=== PATIENT | male | born 1950 | race Caucasian/White ===

== ENCOUNTER 2016-11-16 01:51 | Inpatient (IN) | payer MEDICARE, MEDICAID ==
[~2016-11-16] VITALS: Ht 193 cm; Wt 130.1 kg
[~2016-11-16 01:51] MED LIST: DIVA500T52 PO; DOCU250C91 PO; LISI-661 PO; OLAN5Z PO; OMEP20 PO
[2016-11-16 03:06] LABS: BASOPHILS % (AUTO) 0.6 % (0.0-2.0); HEMATOCRIT 35.7 % (41-53); HEMOGLOBIN 11.7 g/dL (13.5-17.5); LYMPHOCYTES % (AUTO) 11.8 % (22.0-44.0); MEAN CORPUSCULAR HEMOGLOBIN 28.7 pg (26.0-34.0); MEAN CORPUSCULAR HGB CONC 32.9 G/dL (31.0-37.0); MEAN CORPUSCULAR VOLUME 87 fL (80-100); MONOCYTES # (AUTO) 0.5 K/uL (0.1-1.0); MONOCYTES % (AUTO) 5.5 % (2.0-9.0); NEUTROPHILS # (AUTO) 6.8 K/uL (1.8-7.7); NEUTROPHILS % (AUTO) 80.1 % (40.0-70.0); PLATELET COUNT (AUTO) 189 K/uL (150-450); RED BLOOD CELL COUNT(AUTO) 4.09 MIL/uL (4.50-5.90); RED CELL DISTRIBUTION WIDTH 14.5 % (11.5-14.5); WHITE BLOOD COUNT (AUTO) 8.5 K/uL (4.5-11.0)
[2016-11-16 03:23] LABS: ANION GAP 7 mmol/L (8-16); CALCIUM, TOTAL 8.9 mg/dL (8.8-10.5); CARBON DIOXIDE 28 mmol/L (22-29); CHLORIDE 103 mmol/L (98-107); CREATININE 1.26 mg/dL (0.60-1.30); GLOMERULAR FILTR. RATE CALC 57 mL/min (>60); POTASSIUM 4.2 mmol/L (3.5-5.1); SODIUM SERUM 138 mmol/L (136-145); UREA NITROGEN, BLOOD 27 mg/dL (7-18)
[2016-11-16 03:28] LABS: ALANINE AMINOTRANSFERASE 21 U/L (12-78); ALBUMIN 3.3 g/dL (3.4-5.0); ASPARTATE AMINOTRANSFERASE 27 U/L (15-37); BILIRUBIN,TOTAL 0.6 mg/dL (0.1-1.0); TOTAL PROTEIN, SERUM 7.1 g/dL (6.4-8.2)
[2016-11-16 04:05] LABS: VALPROIC ACID 3 mcg/mL (50-100)
[2016-11-16] MEDS ORDERED: HALOPERIDOL 5 MG TABLET PO PRN (04:30)
[2016-11-16] MEDS ORDERED: ZOLPIDEM TARTRATE 10 MG TABLET PO PRN (04:30)
[2016-11-16 06:00] VITALS: BP 121/62
[2016-11-16] MEDS: LORazepam 2 MG TABLET PO PRN (06:23)
[2016-11-16] MEDS ORDERED: -PHARMACY VACCINE NOTE- MISC ONE ×2 (06:30)
[2016-11-16 08:24] VITALS: BP 123/63
[2016-11-16] MEDS ORDERED: BACITRACIN 28.4 GM OINTMENT TP PRN (09:00)
[2016-11-16] MEDS ORDERED: IBUPROFEN 600 MG TABLET PO PRN (09:00)
[2016-11-16] MEDS ORDERED: ACETAMINOPHEN 325 MG TABLET PO PRN (09:00)
[2016-11-16] MEDS ORDERED: LOPERAMIDE HCL 2 MG CAPSULE PO PRN (09:00)
[2016-11-16] MEDS ORDERED: MAGNESIUM HYDROXIDE SUSPENSION 30 ML UDCUP PO PRN (09:00)
[2016-11-16] MEDS ORDERED: MAG HYDROX/AL HYDROX/SIMETH ES 30 ML SUSPENSION UDCUP PO PRN (09:00)
[2016-11-16] MEDS ORDERED: BENZOCAINE/MENTHOL LOZENGE MM PRN (09:00)
[2016-11-16] MEDS ORDERED: ONDANSETRON HCL 4 MG TABLET PO PRN (09:00)
[2016-11-16] MEDS ORDERED: ALBUTEROL SULFATE HFA 90 MCG/PUFF 8 GM INHALER IH PRN (09:00)
[2016-11-16] MEDS ORDERED: CloNIDine HCL 0.1 MG TABLET PO PRN (09:00)
[2016-11-16] MEDS ORDERED: PETROLATUM,WHITE 71 GM JELLY TP PRN (09:00)
[2016-11-16] MEDS: OMEPRAZOLE 20 MG CAPSULE PO SCH (09:14)
[2016-11-16] MEDS: LISINOPRIL 10 MG TABLET PO SCH (09:14)
[2016-11-16] MEDS: DOCUSATE SODIUM 250 MG CAPSULE PO SCH ×2 (09:14→16:04)
[2016-11-16 16:01] VITALS: BP 116/71
[2016-11-16] MEDS: DIVALPROEX SODIUM 500 MG ER TABLET PO SCH (20:22)
[2016-11-16] MEDS: OLANZapine 5 MG RAPDIS TABLET PO SCH (20:22)
[2016-11-17 06:15] VITALS: BP 117/60
[2016-11-17 08:30] VITALS: BP 119/70
[2016-11-17] MEDS: OMEPRAZOLE 20 MG CAPSULE PO SCH (09:07)
[2016-11-17] MEDS: LISINOPRIL 10 MG TABLET PO SCH (09:07)
[2016-11-17] MEDS: DOCUSATE SODIUM 250 MG CAPSULE PO SCH ×2 (09:07→16:02)
[2016-11-17] MEDS: TERBINAFINE HCL 1% 30 GM CREAM TP SCH (09:08)
[2016-11-17 16:01] VITALS: BP 144/67
[2016-11-17 16:04] VITALS: BP 110/63
[2016-11-17] MEDS: OLANZapine 5 MG RAPDIS TABLET PO SCH (20:13)
[2016-11-17] MEDS: DIVALPROEX SODIUM 500 MG ER TABLET PO SCH (20:13)
[2016-11-18 05:42] VITALS: BP 137/74
[2016-11-18 08:24] VITALS: BP 133/72
[2016-11-18] MEDS: DOCUSATE SODIUM 250 MG CAPSULE PO SCH ×2 (09:27→16:49)
[2016-11-18] MEDS: TERBINAFINE HCL 1% 30 GM CREAM TP SCH (09:27)
[2016-11-18] MEDS: LISINOPRIL 10 MG TABLET PO SCH (09:27)
[2016-11-18] MEDS: OMEPRAZOLE 20 MG CAPSULE PO SCH (09:27)
[2016-11-18 16:15] VITALS: BP 109/60
[2016-11-18] MEDS: LORazepam 2 MG TABLET PO PRN (17:30)
[2016-11-18] MEDS: OLANZapine 5 MG RAPDIS TABLET PO SCH (20:52)
[2016-11-18] MEDS: DIVALPROEX SODIUM 500 MG ER TABLET PO SCH (20:52)
[2016-11-19 06:20] VITALS: BP 133/62
[2016-11-19 08:13] VITALS: BP 132/65
[2016-11-19] MEDS: OMEPRAZOLE 20 MG CAPSULE PO SCH (09:08)
[2016-11-19] MEDS: LISINOPRIL 10 MG TABLET PO SCH (09:08)
[2016-11-19] MEDS: TERBINAFINE HCL 1% 30 GM CREAM TP SCH (09:08)
[2016-11-19] MEDS: DOCUSATE SODIUM 250 MG CAPSULE PO SCH ×2 (09:08→16:27)
[2016-11-19] MEDS: TAMSULOSIN HCL 0.4 MG CAPSULE PO SCH (09:24)
[2016-11-19 16:00] VITALS: BP 140/82
[2016-11-19] MEDS: DIVALPROEX SODIUM 500 MG ER TABLET PO SCH (20:07)
[2016-11-19] MEDS: OLANZapine 5 MG RAPDIS TABLET PO SCH (20:09)
[2016-11-20 00:13] VITALS: BP 105/60
[2016-11-20 08:01] VITALS: BP 154/72
[2016-11-20] MEDS: LISINOPRIL 10 MG TABLET PO SCH (09:18)
[2016-11-20] MEDS: TAMSULOSIN HCL 0.4 MG CAPSULE PO SCH (09:18)
[2016-11-20] MEDS: DOCUSATE SODIUM 250 MG CAPSULE PO SCH ×2 (09:18→16:01)
[2016-11-20] MEDS: TERBINAFINE HCL 1% 30 GM CREAM TP SCH (09:18)
[2016-11-20] MEDS: OMEPRAZOLE 20 MG CAPSULE PO SCH (09:18)
[2016-11-20 10:49] VITALS: BP 126/60
[2016-11-20 16:01] VITALS: BP 112/65
[2016-11-20] MEDS: LORazepam 2 MG TABLET PO PRN (16:01)
[2016-11-20] MEDS: OLANZapine 5 MG RAPDIS TABLET PO SCH (20:01)
[2016-11-20] MEDS: DIVALPROEX SODIUM 500 MG ER TABLET PO SCH (20:01)
[2016-11-21 00:31] VITALS: BP 110/61
[2016-11-21 08:41] VITALS: BP 127/60
[2016-11-21] MEDS: TAMSULOSIN HCL 0.4 MG CAPSULE PO SCH (08:58)
[2016-11-21] MEDS: OMEPRAZOLE 20 MG CAPSULE PO SCH (08:58)
[2016-11-21] MEDS: LISINOPRIL 10 MG TABLET PO SCH (08:58)
[2016-11-21] MEDS: TERBINAFINE HCL 1% 30 GM CREAM TP SCH (08:59)
[2016-11-21] MEDS: DOCUSATE SODIUM 250 MG CAPSULE PO SCH ×2 (08:59→16:06)
[2016-11-21 16:01] VITALS: BP 109/64
[2016-11-21] MEDS: LORazepam 2 MG TABLET PO PRN (16:06)
[2016-11-21] MEDS: OLANZapine 5 MG RAPDIS TABLET PO SCH (20:05)
[2016-11-21] MEDS: DIVALPROEX SODIUM 500 MG ER TABLET PO SCH (20:05)
[2016-11-22] MEDS: OMEPRAZOLE 20 MG CAPSULE PO SCH (08:27)
[2016-11-22] MEDS: DOCUSATE SODIUM 250 MG CAPSULE PO SCH (08:27)
[2016-11-22] MEDS: LISINOPRIL 10 MG TABLET PO SCH (08:27)
[2016-11-22] MEDS: TAMSULOSIN HCL 0.4 MG CAPSULE PO SCH (08:27)
[2016-11-22] MEDS: TERBINAFINE HCL 1% 30 GM CREAM TP SCH (08:27)
[2016-11-22 08:51] VITALS: BP 134/60
[2016-11-22] MEDS ORDERED: TAMS0.4C32 PO (10:34)
== END 2016-11-22 13:45 | disposition home or self-care (01) | DRG 885 ==
LOC: EMS 01:52 → B2X 04:29 → B2S 11:10
PROVIDERS: ADMIT Psychiatry & Neurology Psychiatry; ATTEND Psychiatry & Neurology Psychiatry
DX: F20.0 Paranoid schizophrenia (principal); R45.851 Suicidal ideations; I10 Essential (primary) hypertension; J44.9 Chronic obstructive pulmonary disease, unspecified; M19.90 Unspecified osteoarthritis, unspecified site; K59.00 Constipation, unspecified; E66.9 Obesity, unspecified; K21.9 Gastro-esophageal reflux disease without esophagitis; B35.3 Tinea pedis; G47.00 Insomnia, unspecified; F17.210 Nicotine dependence, cigarettes, uncomplicated; Z59.0 Homelessness; Z79.899 Other long term (current) drug therapy; Z68.34 Body mass index [BMI] 34.0-34.9, adult; Z71.6 Tobacco abuse counseling
CPT/HCPCS: 87081; 99285; G0480

== ENCOUNTER 2016-11-29 20:03 | Inpatient (IN) | payer MEDICARE, MEDICAID ==
[~2016-11-29] VITALS: Ht 190.5 cm; Wt 127.3 kg
[~2016-11-29 20:03] MED LIST changes: +TAMS0.4C32 PO
[2016-11-29] MEDS ORDERED: OLANZapine 5 MG RAPDIS TABLET PO PRN (20:45)
[2016-11-29] MEDS ORDERED: LORazepam 2 MG TABLET PO PRN (20:45)
[2016-11-29] MEDS ORDERED: ZOLPIDEM TARTRATE 10 MG TABLET PO PRN (20:45)
[2016-11-29 22:00] VITALS: BP 142/88
[2016-11-29] MEDS: DIVALPROEX SODIUM 500 MG ER TABLET PO SCH (22:20)
[2016-11-29] MEDS: OLANZapine 5 MG RAPDIS TABLET PO SCH (22:21)
[2016-11-30 00:42] VITALS: BP 146/67
[2016-11-30 08:03] LABS: BASOPHILS # (AUTO) 0.04 K/uL (0.00-0.20); BASOPHILS % (AUTO) 0.6 % (0.0-2.0); EOSINOPHILS # (AUTO) 0.12 K/uL (0.00-0.70); EOSINOPHILS % (AUTO) 1.98 % (1.0-6.0); HEMATOCRIT 33.4 % (41-53); HEMOGLOBIN 10.8 g/dL (13.5-17.5); LYMPHOCYTES # (AUTO) 2.6 K/uL (1.0-4.8); LYMPHOCYTES % (AUTO) 42.3 % (22.0-44.0); MEAN CORPUSCULAR HEMOGLOBIN 28.4 pg (26.0-34.0); MEAN CORPUSCULAR HGB CONC 32.3 G/dL (31.0-37.0); MEAN CORPUSCULAR VOLUME 88 fL (80-100); MONOCYTES # (AUTO) 0.6 K/uL (0.1-1.0); MONOCYTES % (AUTO) 9.8 % (2.0-9.0); NEUTROPHILS # (AUTO) 2.7 K/uL (1.8-7.7); NEUTROPHILS % (AUTO) 45.4 % (40.0-70.0); PLATELET COUNT (AUTO) 159 K/uL (150-450); RED CELL DISTRIBUTION WIDTH 14.5 % (11.5-14.5); WHITE BLOOD COUNT (AUTO) 6.1 K/uL (4.5-11.0)
[2016-11-30 08:40] LABS: HEMOGLOBIN A1C 5.4 % (4.5-6.2)
[2016-11-30 08:45] LABS: ALANINE AMINOTRANSFERASE 17 U/L (12-78); ALBUMIN 2.8 g/dL (3.4-5.0); ANION GAP 10 mmol/L (8-16); ASPARTATE AMINOTRANSFERASE 16 U/L (15-37); BILIRUBIN,TOTAL 0.2 mg/dL (0.1-1.0); CALCIUM, TOTAL 8.3 mg/dL (8.8-10.5); CARBON DIOXIDE 24 mmol/L (22-29); CHLORIDE 109 mmol/L (98-107); CHOL/HDL RATIO 3.5 (4.2-7.3); CREATININE 1.14 mg/dL (0.60-1.30); GLOMERULAR FILTR. RATE CALC > 60 mL/min (>60); POTASSIUM 4.1 mmol/L (3.5-5.1); SODIUM SERUM 143 mmol/L (136-145); THYROID STIMULATING HORMONE 1.94 uIU/mL (0.36-3.74); TOTAL PROTEIN, SERUM 6.2 g/dL (6.4-8.2); UREA NITROGEN, BLOOD 21 mg/dL (7-18)
[2016-11-30] MEDS ORDERED: ONDANSETRON HCL 4 MG TABLET PO PRN (09:00)
[2016-11-30] MEDS ORDERED: ALBUTEROL SULFATE HFA 90 MCG/PUFF 8 GM INHALER IH PRN (09:00)
[2016-11-30] MEDS ORDERED: ACETAMINOPHEN 325 MG TABLET PO PRN (09:00)
[2016-11-30] MEDS ORDERED: BENZOCAINE/MENTHOL LOZENGE MM PRN (09:00)
[2016-11-30] MEDS ORDERED: CloNIDine HCL 0.1 MG TABLET PO PRN (09:00)
[2016-11-30] MEDS ORDERED: LOPERAMIDE HCL 2 MG CAPSULE PO PRN (09:00)
[2016-11-30] MEDS ORDERED: MAGNESIUM HYDROXIDE SUSPENSION 30 ML UDCUP PO PRN (09:00)
[2016-11-30] MEDS ORDERED: BACITRACIN 28.4 GM OINTMENT TP PRN (09:00)
[2016-11-30] MEDS ORDERED: MAG HYDROX/AL HYDROX/SIMETH ES 30 ML SUSPENSION UDCUP PO PRN (09:00)
[2016-11-30] MEDS ORDERED: PETROLATUM,WHITE 71 GM JELLY TP PRN (09:00)
[2016-11-30] MEDS: TAMSULOSIN HCL 0.4 MG CAPSULE PO SCH (09:05)
[2016-11-30] MEDS: DOCUSATE SODIUM 250 MG CAPSULE PO SCH ×2 (09:06→17:00)
[2016-11-30] MEDS: LISINOPRIL 10 MG TABLET PO SCH (09:06)
[2016-11-30] MEDS: OMEPRAZOLE 20 MG CAPSULE PO SCH (09:06)
[2016-11-30 09:20] VITALS: BP 118/62
[2016-11-30] MEDS: IBUPROFEN 600 MG TABLET PO PRN (09:20)
[2016-11-30 09:56] VITALS: BP 123/56
[2016-11-30] MEDS ORDERED: GuaiFENesin/D-METHORPHAN [SUGAR-FREE] 200-20MG/10 ML SYRUP UDCUP PO PRN (10:15)
[2016-11-30] MEDS ORDERED: HydrOXYzine PAMOATE 50 MG CAPSULE PO PRN (10:15)
[2016-11-30 11:28] VITALS: BP 132/70
[2016-11-30] MEDS: THIAMINE HCL 100 MG TABLET PO SCH (17:00)
[2016-11-30 18:26] VITALS: BP 132/65
[2016-11-30] MEDS: DIVALPROEX SODIUM 500 MG ER TABLET PO SCH (20:10)
[2016-11-30] MEDS: OLANZapine 5 MG RAPDIS TABLET PO SCH (20:11)
[2016-12-01 04:02] VITALS: BP 138/93
[2016-12-01] MEDS: OMEPRAZOLE 20 MG CAPSULE PO SCH (08:33)
[2016-12-01] MEDS: TAMSULOSIN HCL 0.4 MG CAPSULE PO SCH (08:33)
[2016-12-01] MEDS: THIAMINE HCL 100 MG TABLET PO SCH ×2 (08:33→16:38)
[2016-12-01] MEDS: LISINOPRIL 10 MG TABLET PO SCH (08:33)
[2016-12-01] MEDS: DOCUSATE SODIUM 250 MG CAPSULE PO SCH ×2 (08:33→16:38)
[2016-12-01 08:41] VITALS: BP 158/85
[2016-12-01] MEDS: IBUPROFEN 600 MG TABLET PO PRN (08:42)
[2016-12-01] MEDS ORDERED: MULTIVITAMINS WITH MINERALS, THERAPEUTIC TABLET PO SCH (09:00)
[2016-12-01] MEDS ORDERED: NALTREXONE HCL 50 MG TABLET PO SCH (09:00)
[2016-12-01] MEDS ORDERED: FOLIC ACID 1 MG TABLET PO SCH (09:00)
[2016-12-01 12:51] VITALS: BP 137/71
[2016-12-01] MEDS ORDERED: OLANZAPINE PAMOATE IM ONE (13:00)
[2016-12-01 14:00] VITALS: BP 132/63
[2016-12-01] MEDS ORDERED: DIVA500T52 PO (14:32)
[2016-12-01] MEDS ORDERED: OLAN405V IM (14:32)
[2016-12-01] MEDS ORDERED: NALT50 PO (14:32)
[2016-12-01 16:00] VITALS: BP 136/73
[2016-12-01] MEDS: DIVALPROEX SODIUM 500 MG ER TABLET PO SCH (20:45)
[2016-12-01] MEDS ORDERED: OLANZapine 10 MG RAPDIS TABLET PO SCH (21:00)
[2016-12-02] MEDS ORDERED: THIA100 PO (05:06)
[2016-12-02] MEDS ORDERED: FOLI1 PO (05:06)
[2016-12-02] MEDS ORDERED: MULT-248 PO (05:06)
[2016-12-02 06:23] VITALS: BP 148/83
[2016-12-29] MEDS ORDERED: OLANZAPINE PAMOATE 405 MG/2.7 ML VIAL IM SCH (09:00)
== END 2016-12-02 08:10 | disposition home or self-care (01) | DRG 885 ==
LOC: B2S 20:44 → EDSTATUS 21:12 → UNDOADMIN 21:14 → B2S 21:14
PROVIDERS: ADMIT Psychiatry & Neurology Psychiatry; ATTEND Psychiatry & Neurology Psychiatry
PROC: GZ51ZZZ Individual Psychotherapy, Behavioral (ICD-10-PCS; principal; 2016-11-30)
DX: F25.9 Schizoaffective disorder, unspecified (principal); E66.9 Obesity, unspecified; J44.9 Chronic obstructive pulmonary disease, unspecified; I10 Essential (primary) hypertension; K21.9 Gastro-esophageal reflux disease without esophagitis; K59.00 Constipation, unspecified; M19.90 Unspecified osteoarthritis, unspecified site; N40.0 Benign prostatic hyperplasia without lower urinary tract symptoms; R10.13 Epigastric pain; Z79.899 Other long term (current) drug therapy; F17.200 Nicotine dependence, unspecified, uncomplicated; Z59.0 Homelessness; Z91.14 Patient's other noncompliance with medication regimen; Z68.35 Body mass index [BMI] 35.0-35.9, adult; D64.9 Anemia, unspecified
CPT/HCPCS: 83036; 84439; 84443; 87081; J2358

== ENCOUNTER 2017-01-05 18:05 | Inpatient (IN) | payer MEDICARE, MEDICAID ==
[~2017-01-05] VITALS: Ht 193 cm; Wt 120.9 kg
[~2017-01-05 18:05] MED LIST changes: +FOLI1 PO; +MULT-248 PO; +NALT50 PO; +OLAN405V IM; -OLAN5Z PO; +THIA100 PO
[2017-01-05] MEDS ORDERED: ZOLPIDEM TARTRATE 10 MG TABLET PO PRN (18:45)
[2017-01-05] MEDS ORDERED: LORazepam 2 MG TABLET PO PRN (18:45)
[2017-01-05] MEDS ORDERED: OLANZapine 5 MG RAPDIS TABLET PO PRN (18:45)
[2017-01-05 19:49] VITALS: BP 113/73
[2017-01-05] MEDS: DIVALPROEX SODIUM 500 MG DR TABLET PO SCH (20:52)
[2017-01-06 00:05] VITALS: BP 123/63
[2017-01-06 08:21] LABS: BASOPHILS # (AUTO) 0.04 K/uL (0.00-0.20); BASOPHILS % (AUTO) 0.5 % (0.0-2.0); EOSINOPHILS # (AUTO) 0.23 K/uL (0.00-0.70); HEMATOCRIT 33.7 % (41-53); LYMPHOCYTES # (AUTO) 2.4 K/uL (1.0-4.8); LYMPHOCYTES % (AUTO) 30.2 % (22.0-44.0); MEAN CORPUSCULAR HGB CONC 32.6 G/dL (31.0-37.0); MEAN CORPUSCULAR VOLUME 86 fL (80-100); MONOCYTES # (AUTO) 0.4 K/uL (0.1-1.0); MONOCYTES % (AUTO) 5.6 % (2.0-9.0); NEUTROPHILS # (AUTO) 4.8 K/uL (1.8-7.7); NEUTROPHILS % (AUTO) 60.8 % (40.0-70.0); PLATELET COUNT (AUTO) 260 K/uL (150-450); RED BLOOD CELL COUNT(AUTO) 3.92 MIL/uL (4.50-5.90); RED CELL DISTRIBUTION WIDTH 14.1 % (11.5-14.5); WHITE BLOOD COUNT (AUTO) 7.9 K/uL (4.5-11.0)
[2017-01-06 08:35] LABS: HEMOGLOBIN A1C 5.4 % (4.5-6.2)
[2017-01-06 08:45] VITALS: BP 124/69
[2017-01-06 08:45] LABS: ALBUMIN 2.8 g/dL (3.4-5.0); BILIRUBIN,TOTAL 0.1 mg/dL (0.1-1.0); CALCIUM, TOTAL 8.6 mg/dL (8.8-10.5); CHOL/HDL RATIO 4.1 (4.2-7.3); CREATININE 1.38 mg/dL (0.60-1.30); POTASSIUM 4.7 mmol/L (3.5-5.1); THYROID STIMULATING HORMONE 1.34 uIU/mL (0.36-3.74); TOTAL PROTEIN, SERUM 6.5 g/dL (6.4-8.2)
[2017-01-06] MEDS ORDERED: MAG HYDROX/AL HYDROX/SIMETH ES 30 ML SUSPENSION UDCUP PO PRN (09:00)
[2017-01-06] MEDS ORDERED: CloNIDine HCL 0.1 MG TABLET PO PRN (09:00)
[2017-01-06] MEDS ORDERED: IBUPROFEN 600 MG TABLET PO PRN (09:00)
[2017-01-06] MEDS ORDERED: ACETAMINOPHEN 325 MG TABLET PO PRN (09:00)
[2017-01-06] MEDS ORDERED: MAGNESIUM HYDROXIDE SUSPENSION 30 ML UDCUP PO PRN (09:00)
[2017-01-06] MEDS ORDERED: OLANZAPINE PAMOATE 405 MG/2.7 ML VIAL IM SCH (09:00)
[2017-01-06] MEDS ORDERED: LOPERAMIDE HCL 2 MG CAPSULE PO PRN (09:00)
[2017-01-06] MEDS ORDERED: ONDANSETRON HCL 4 MG TABLET PO PRN (09:00)
[2017-01-06] MEDS ORDERED: BENZOCAINE/MENTHOL LOZENGE MM PRN (09:00)
[2017-01-06] MEDS ORDERED: ALBUTEROL SULFATE HFA 90 MCG/PUFF 8 GM INHALER IH PRN (09:00)
[2017-01-06] MEDS ORDERED: PETROLATUM,WHITE 71 GM JELLY TP PRN (09:00)
[2017-01-06] MEDS ORDERED: BACITRACIN 28.4 GM OINTMENT TP PRN (09:00)
[2017-01-06] MEDS: NALTREXONE HCL 50 MG TABLET PO SCH (10:18)
[2017-01-06] MEDS: TAMSULOSIN HCL 0.4 MG CAPSULE PO SCH (10:22)
[2017-01-06] MEDS: DOCUSATE SODIUM 100 MG CAPSULE PO SCH (10:23)
[2017-01-06] MEDS: OMEPRAZOLE 20 MG CAPSULE PO SCH (10:23)
[2017-01-06] MEDS: LISINOPRIL 10 MG TABLET PO SCH (10:23)
[2017-01-06] MEDS ORDERED: HydrOXYzine PAMOATE 50 MG CAPSULE PO PRN (13:15)
[2017-01-06] MEDS ORDERED: GuaiFENesin/D-METHORPHAN [SUGAR-FREE] 200-20MG/10 ML SYRUP UDCUP PO PRN (13:15)
[2017-01-06 16:09] VITALS: BP 122/64
[2017-01-06] MEDS: THIAMINE HCL 100 MG TABLET PO SCH (17:30)
[2017-01-06] MEDS: DIVALPROEX SODIUM 500 MG DR TABLET PO SCH (21:10)
[2017-01-07 06:53] VITALS: BP 120/90
[2017-01-07 08:32] LABS: CALCIUM, TOTAL 8.2 mg/dL (8.8-10.5); CREATININE 1.3 mg/dL (0.60-1.30); POTASSIUM 5.1 mmol/L (3.5-5.1)
[2017-01-07] MEDS: TAMSULOSIN HCL 0.4 MG CAPSULE PO SCH (08:52)
[2017-01-07] MEDS: FOLIC ACID 1 MG TABLET PO SCH (08:52)
[2017-01-07] MEDS: NALTREXONE HCL 50 MG TABLET PO SCH (08:52)
[2017-01-07] MEDS: DOCUSATE SODIUM 100 MG CAPSULE PO SCH (08:52)
[2017-01-07] MEDS: OMEPRAZOLE 20 MG CAPSULE PO SCH (08:52)
[2017-01-07] MEDS: LISINOPRIL 10 MG TABLET PO SCH (08:52)
[2017-01-07] MEDS: MULTIVITAMINS WITH MINERALS, THERAPEUTIC TABLET PO SCH (08:52)
[2017-01-07] MEDS: THIAMINE HCL 100 MG TABLET PO SCH ×2 (08:52→17:27)
[2017-01-07 09:34] VITALS: BP 114/69
[2017-01-07 09:57] VITALS: BP 114/69
[2017-01-07 16:19] VITALS: BP 118/66
[2017-01-07] MEDS: DIVALPROEX SODIUM 500 MG DR TABLET PO SCH (20:35)
[2017-01-08 08:44] VITALS: BP 134/66
[2017-01-08] MEDS: DOCUSATE SODIUM 100 MG CAPSULE PO SCH (09:34)
[2017-01-08] MEDS: MULTIVITAMINS WITH MINERALS, THERAPEUTIC TABLET PO SCH (09:34)
[2017-01-08] MEDS: OMEPRAZOLE 20 MG CAPSULE PO SCH (09:34)
[2017-01-08] MEDS: TAMSULOSIN HCL 0.4 MG CAPSULE PO SCH (09:35)
[2017-01-08] MEDS: NALTREXONE HCL 50 MG TABLET PO SCH (09:35)
[2017-01-08] MEDS: THIAMINE HCL 100 MG TABLET PO SCH ×2 (09:42→16:28)
[2017-01-08] MEDS: FOLIC ACID 1 MG TABLET PO SCH (09:42)
[2017-01-08] MEDS: LISINOPRIL 10 MG TABLET PO SCH (09:42)
[2017-01-08 16:13] VITALS: BP 112/68
[2017-01-08] MEDS: DIVALPROEX SODIUM 500 MG DR TABLET PO SCH (20:49)
[2017-01-09 09:22] VITALS: BP 128/81
[2017-01-09] MEDS: MULTIVITAMINS WITH MINERALS, THERAPEUTIC TABLET PO SCH (09:26)
[2017-01-09] MEDS: FOLIC ACID 1 MG TABLET PO SCH (09:26)
[2017-01-09] MEDS: DOCUSATE SODIUM 100 MG CAPSULE PO SCH (09:26)
[2017-01-09] MEDS: OMEPRAZOLE 20 MG CAPSULE PO SCH (09:26)
[2017-01-09] MEDS: THIAMINE HCL 100 MG TABLET PO SCH ×2 (09:26→16:30)
[2017-01-09] MEDS: NALTREXONE HCL 50 MG TABLET PO SCH (09:26)
[2017-01-09] MEDS: LISINOPRIL 10 MG TABLET PO SCH (09:26)
[2017-01-09] MEDS: TAMSULOSIN HCL 0.4 MG CAPSULE PO SCH (09:27)
[2017-01-09 16:16] VITALS: BP 120/75
[2017-01-09] MEDS: DIVALPROEX SODIUM 500 MG DR TABLET PO SCH (20:18)
[2017-01-10 08:59] VITALS: BP 155/70
[2017-01-10] MEDS: TAMSULOSIN HCL 0.4 MG CAPSULE PO SCH (09:19)
[2017-01-10] MEDS: DOCUSATE SODIUM 100 MG CAPSULE PO SCH (09:19)
[2017-01-10] MEDS: OMEPRAZOLE 20 MG CAPSULE PO SCH (09:19)
[2017-01-10] MEDS: NALTREXONE HCL 50 MG TABLET PO SCH (09:19)
[2017-01-10] MEDS: MULTIVITAMINS WITH MINERALS, THERAPEUTIC TABLET PO SCH (09:19)
[2017-01-10] MEDS: THIAMINE HCL 100 MG TABLET PO SCH (09:19)
[2017-01-10] MEDS: LISINOPRIL 10 MG TABLET PO SCH (09:21)
[2017-01-10] MEDS: FOLIC ACID 1 MG TABLET PO SCH (09:21)
[2017-01-10] MEDS ORDERED: OLAN405V IM (13:13)
[2017-01-10] MEDS ORDERED: NALT50 PO (13:13)
[2017-01-10] MEDS ORDERED: DIVA500T2 PO (13:13)
[2017-02-02] MEDS ORDERED: OLANZAPINE PAMOATE 405 MG/2.7 ML VIAL IM SCH (09:00)
== END 2017-01-10 14:35 | disposition home or self-care (01) | DRG 885 ==
LOC: EDSTATUS 18:09 → B2X 18:37 → B2S 21:21
PROVIDERS: ADMIT Psychiatry & Neurology Psychiatry; ATTEND Psychiatry & Neurology Psychiatry
PROC: GZ51ZZZ Individual Psychotherapy, Behavioral (ICD-10-PCS; principal; 2017-01-05)
DX: F25.9 Schizoaffective disorder, unspecified (principal); R45.851 Suicidal ideations; F25.0 Schizoaffective disorder, bipolar type; R45.850 Homicidal ideations; D64.9 Anemia, unspecified; I10 Essential (primary) hypertension; K21.9 Gastro-esophageal reflux disease without esophagitis; N40.0 Benign prostatic hyperplasia without lower urinary tract symptoms; E66.9 Obesity, unspecified; J44.9 Chronic obstructive pulmonary disease, unspecified; M19.90 Unspecified osteoarthritis, unspecified site; K59.00 Constipation, unspecified; N28.9 Disorder of kidney and ureter, unspecified; Z71.6 Tobacco abuse counseling; Z59.0 Homelessness; Z91.19 Patient's noncompliance with other medical treatment and regimen; Z68.32 Body mass index [BMI] 32.0-32.9, adult
CPT/HCPCS: 83036; 84439; 84443; J2358

== ENCOUNTER 2017-01-24 16:18 | Inpatient (IN) | payer MEDICARE, MEDICAID ==
[~2017-01-24] VITALS: Ht 193 cm; Wt 128.4 kg
[~2017-01-24 16:18] MED LIST changes: +DIVA500T2 PO; -FOLI1 PO; -MULT-248 PO; -THIA100 PO
[2017-01-24] MEDS ORDERED: HALOPERIDOL 5 MG TABLET PO PRN (17:00)
[2017-01-24] MEDS ORDERED: ZOLPIDEM TARTRATE 10 MG TABLET PO PRN (17:00)
[2017-01-24 17:36] VITALS: BP 104/67
[2017-01-24] MEDS: OLANZapine 7.5 MG TABLET PO SCH (20:18)
[2017-01-24] MEDS: LORazepam 2 MG TABLET PO PRN (20:18)
[2017-01-25 06:40] VITALS: BP 137/62
[2017-01-25 08:09] VITALS: BP 139/70
[2017-01-25] MEDS ORDERED: BACITRACIN 28.4 GM OINTMENT TP PRN (08:30)
[2017-01-25] MEDS ORDERED: ACETAMINOPHEN 325 MG TABLET PO PRN (08:30)
[2017-01-25] MEDS ORDERED: IBUPROFEN 600 MG TABLET PO PRN (08:30)
[2017-01-25] MEDS ORDERED: MAGNESIUM HYDROXIDE SUSPENSION 30 ML UDCUP PO PRN (08:30)
[2017-01-25] MEDS ORDERED: LOPERAMIDE HCL 2 MG CAPSULE PO PRN (08:30)
[2017-01-25] MEDS ORDERED: ONDANSETRON HCL 4 MG TABLET PO PRN (08:30)
[2017-01-25] MEDS ORDERED: CloNIDine HCL 0.1 MG TABLET PO PRN (08:30)
[2017-01-25] MEDS ORDERED: MAG HYDROX/AL HYDROX/SIMETH ES 30 ML SUSPENSION UDCUP PO PRN (08:30)
[2017-01-25] MEDS ORDERED: PETROLATUM,WHITE 71 GM JELLY TP PRN (08:30)
[2017-01-25] MEDS ORDERED: ALBUTEROL SULFATE HFA 90 MCG/PUFF 8 GM INHALER IH PRN (08:30)
[2017-01-25] MEDS: OMEPRAZOLE 20 MG CAPSULE PO SCH (09:13)
[2017-01-25] MEDS: TAMSULOSIN HCL 0.4 MG CAPSULE PO SCH (09:13)
[2017-01-25] MEDS: DOCUSATE SODIUM 100 MG CAPSULE PO SCH (09:13)
[2017-01-25] MEDS: LISINOPRIL 10 MG TABLET PO SCH (09:14)
[2017-01-25 16:18] VITALS: BP 117/74
[2017-01-25] MEDS: LORazepam 2 MG TABLET PO PRN (16:25)
[2017-01-25] MEDS: OLANZapine 7.5 MG TABLET PO SCH (20:31)
[2017-01-26 06:48] VITALS: BP 125/87
[2017-01-26 08:32] LABS: BASOPHILS % (AUTO) 0.6 % (0.0-2.0); EOSINOPHILS % (AUTO) 4.4 % (1.0-6.0); HEMATOCRIT 33.1 % (41-53); HEMOGLOBIN 10.6 g/dL (13.5-17.5); LYMPHOCYTES # (AUTO) 1.9 K/uL (1.0-4.8); LYMPHOCYTES % (AUTO) 28.5 % (22.0-44.0); MEAN CORPUSCULAR HEMOGLOBIN 27.7 pg (26.0-34.0); MEAN CORPUSCULAR HGB CONC 31.9 G/dL (31.0-37.0); MEAN CORPUSCULAR VOLUME 87 fL (80-100); MONOCYTES # (AUTO) 0.5 K/uL (0.1-1.0); MONOCYTES % (AUTO) 8.1 % (2.0-9.0); NEUTROPHILS # (AUTO) 3.8 K/uL (1.8-7.7); NEUTROPHILS % (AUTO) 58.4 % (40.0-70.0); PLATELET COUNT (AUTO) 176 K/uL (150-450); RED BLOOD CELL COUNT(AUTO) 3.81 MIL/uL (4.50-5.90); RED CELL DISTRIBUTION WIDTH 14.8 % (11.5-14.5); WHITE BLOOD COUNT (AUTO) 6.5 K/uL (4.5-11.0)
[2017-01-26 08:48] LABS: ALBUMIN 2.7 g/dL (3.4-5.0); BILIRUBIN,TOTAL 0.2 mg/dL (0.1-1.0); CALCIUM, TOTAL 8.4 mg/dL (8.8-10.5); CHOL/HDL RATIO 3.5 (4.2-7.3); CREATININE 1.24 mg/dL (0.60-1.30); POTASSIUM 4.3 mmol/L (3.5-5.1); THYROID STIMULATING HORMONE 3.13 uIU/mL (0.36-3.74); TOTAL PROTEIN, SERUM 6.4 g/dL (6.4-8.2)
[2017-01-26 08:55] VITALS: BP 132/66
[2017-01-26] MEDS: LISINOPRIL 10 MG TABLET PO SCH (09:16)
[2017-01-26] MEDS: DOCUSATE SODIUM 100 MG CAPSULE PO SCH (09:16)
[2017-01-26] MEDS: OMEPRAZOLE 20 MG CAPSULE PO SCH (09:16)
[2017-01-26] MEDS: TAMSULOSIN HCL 0.4 MG CAPSULE PO SCH (09:16)
[2017-01-26 16:00] VITALS: BP 128/67
[2017-01-26] MEDS: LORazepam 2 MG TABLET PO PRN (16:24)
[2017-01-26] MEDS: OLANZapine 7.5 MG TABLET PO SCH (20:38)
[2017-01-27 06:49] VITALS: BP 133/86
[2017-01-27 08:21] VITALS: BP 130/76
[2017-01-27] MEDS: LISINOPRIL 10 MG TABLET PO SCH (08:49)
[2017-01-27] MEDS: TAMSULOSIN HCL 0.4 MG CAPSULE PO SCH (08:49)
[2017-01-27] MEDS: OMEPRAZOLE 20 MG CAPSULE PO SCH (08:49)
[2017-01-27] MEDS: DOCUSATE SODIUM 100 MG CAPSULE PO SCH (08:49)
[2017-01-27 16:00] VITALS: BP 136/76
[2017-01-27] MEDS: OLANZapine 7.5 MG TABLET PO SCH (20:25)
[2017-01-28] VITALS: BP 134/68
[2017-01-28 08:07] VITALS: BP 121/64
[2017-01-28] MEDS: OMEPRAZOLE 20 MG CAPSULE PO SCH (08:52)
[2017-01-28] MEDS: TAMSULOSIN HCL 0.4 MG CAPSULE PO SCH (08:52)
[2017-01-28] MEDS: LISINOPRIL 10 MG TABLET PO SCH (08:53)
[2017-01-28] MEDS: DOCUSATE SODIUM 100 MG CAPSULE PO SCH (08:53)
[2017-01-28 16:26] VITALS: BP 129/87
[2017-01-28] MEDS: OLANZapine 7.5 MG TABLET PO SCH (20:00)
[2017-01-29 00:04] VITALS: BP 119/63
[2017-01-29] MEDS: BENZOCAINE/MENTHOL LOZENGE MM PRN ×2 (01:17→19:30)
[2017-01-29] MEDS: OMEPRAZOLE 20 MG CAPSULE PO SCH (08:43)
[2017-01-29] MEDS: LISINOPRIL 10 MG TABLET PO SCH (08:43)
[2017-01-29] MEDS: DOCUSATE SODIUM 100 MG CAPSULE PO SCH (08:43)
[2017-01-29] MEDS: TAMSULOSIN HCL 0.4 MG CAPSULE PO SCH (08:43)
[2017-01-29 09:07] VITALS: BP 120/67
[2017-01-29 16:00] VITALS: BP 113/65
[2017-01-29] MEDS: OLANZapine 7.5 MG TABLET PO SCH (20:37)
[2017-01-30 06:41] VITALS: BP 139/82
[2017-01-30 08:33] VITALS: BP 115/81
[2017-01-30] MEDS: LISINOPRIL 10 MG TABLET PO SCH (09:15)
[2017-01-30] MEDS: TAMSULOSIN HCL 0.4 MG CAPSULE PO SCH (09:15)
[2017-01-30] MEDS: DOCUSATE SODIUM 100 MG CAPSULE PO SCH (09:15)
[2017-01-30] MEDS: OMEPRAZOLE 20 MG CAPSULE PO SCH (09:16)
[2017-01-30] MEDS: CHOLECALCIFEROL (VIT D3) 1,000 UNITS TABLET PO SCH (09:16)
[2017-01-30 16:07] VITALS: BP 130/82
[2017-01-30] MEDS: BENZOCAINE/MENTHOL LOZENGE MM PRN (16:48)
[2017-01-30] MEDS: OLANZapine 7.5 MG TABLET PO SCH (20:32)
[2017-01-31 06:32] VITALS: BP 138/75
[2017-01-31 08:58] VITALS: BP 115/51
[2017-01-31] MEDS: DOCUSATE SODIUM 100 MG CAPSULE PO SCH (09:00)
[2017-01-31] MEDS: LISINOPRIL 10 MG TABLET PO SCH (09:09)
[2017-01-31] MEDS: TAMSULOSIN HCL 0.4 MG CAPSULE PO SCH (09:09)
[2017-01-31] MEDS ORDERED: OLAN15TA2 PO (09:09)
[2017-01-31] MEDS: OMEPRAZOLE 20 MG CAPSULE PO SCH (09:09)
[2017-01-31] MEDS: CHOLECALCIFEROL (VIT D3) 1,000 UNITS TABLET PO SCH (09:09)
[2017-01-31] MEDS ORDERED: CHOL100034 PO (09:18)
[2017-01-31] MEDS ORDERED: ALBU8HFA IH (09:26)
== END 2017-01-31 10:55 | disposition home or self-care (01) | DRG 885 ==
LOC: B3A 16:55 → EDSTATUS 16:57 → B2S 01-27 16:30
PROVIDERS: ADMIT Psychiatry & Neurology Psychiatry; ATTEND Psychiatry & Neurology Psychiatry
DX: F20.0 Paranoid schizophrenia (principal); R45.851 Suicidal ideations; I10 Essential (primary) hypertension; N40.0 Benign prostatic hyperplasia without lower urinary tract symptoms; K21.9 Gastro-esophageal reflux disease without esophagitis; M19.90 Unspecified osteoarthritis, unspecified site; J44.9 Chronic obstructive pulmonary disease, unspecified; E66.9 Obesity, unspecified; F17.210 Nicotine dependence, cigarettes, uncomplicated; G47.00 Insomnia, unspecified; M79.89 Other specified soft tissue disorders; E55.9 Vitamin D deficiency, unspecified; J02.9 Acute pharyngitis, unspecified; Z59.0 Homelessness; Z68.34 Body mass index [BMI] 34.0-34.9, adult; Z71.6 Tobacco abuse counseling
CPT/HCPCS: 82306; 83036; 84439; 84443; 87081; J3535

== ENCOUNTER 2017-05-22 21:43 | Inpatient (IN) | payer MEDICARE, MEDICAID ==
[~2017-05-22] VITALS: Ht 200.7 cm; Wt 128.5 kg
[~2017-05-22 21:43] MED LIST changes: +CHOL100034 PO; -DIVA500T2 PO; -DIVA500T52 PO; -NALT50 PO; -OLAN405V IM; +PALI3 PO
[2017-05-23 01:50] VITALS: BP 131/79
[2017-05-23] MEDS ORDERED: HALOPERIDOL 5 MG TABLET PO PRN (02:15)
[2017-05-23] MEDS ORDERED: ZOLPIDEM TARTRATE 10 MG TABLET PO PRN (02:15)
[2017-05-23] MEDS ORDERED: LORazepam 2 MG TABLET PO PRN (02:15)
[2017-05-23] MEDS ORDERED: PALI3 PO (04:23)
[2017-05-23] MEDS ORDERED: LISI-661 PO (04:23)
[2017-05-23 05:04] VITALS: BP 158/82
[2017-05-23 07:00] LABS: BASOPHILS # (AUTO) 0.05 K/uL (0.00-0.20); BASOPHILS % (AUTO) 0.6 % (0.0-2.0); EOSINOPHILS # (AUTO) 0.23 K/uL (0.00-0.70); EOSINOPHILS % (AUTO) 3.04 % (1.0-6.0); HEMATOCRIT 35.9 % (41-53); HEMOGLOBIN 11.6 g/dL (13.5-17.5); LYMPHOCYTES # (AUTO) 2.4 K/uL (1.0-4.8); LYMPHOCYTES % (AUTO) 31.2 % (22.0-44.0); MEAN CORPUSCULAR HEMOGLOBIN 28.5 pg (26.0-34.0); MEAN CORPUSCULAR HGB CONC 32.4 G/dL (31.0-37.0); MEAN CORPUSCULAR VOLUME 88 fL (80-100); MONOCYTES # (AUTO) 0.7 K/uL (0.1-1.0); MONOCYTES % (AUTO) 8.6 % (2.0-9.0); NEUTROPHILS # (AUTO) 4.3 K/uL (1.8-7.7); NEUTROPHILS % (AUTO) 56.6 % (40.0-70.0); PLATELET COUNT (AUTO) 180 K/uL (150-450); RED BLOOD CELL COUNT(AUTO) 4.08 MIL/uL (4.50-5.90); WHITE BLOOD COUNT (AUTO) 7.7 K/uL (4.5-11.0)
[2017-05-23 07:03] LABS: ALANINE AMINOTRANSFERASE 17 U/L (12-78); ANION GAP 10 mmol/L (8-16); ASPARTATE AMINOTRANSFERASE 13 U/L (15-37); BILIRUBIN,TOTAL 0.2 mg/dL (0.1-1.0); CARBON DIOXIDE 24 mmol/L (22-29); CHLORIDE 109 mmol/L (98-107); CHOL/HDL RATIO 3.5 (4.2-7.3); CREATININE 1.14 mg/dL (0.60-1.30); GLOMERULAR FILTR. RATE CALC > 60 mL/min (>60); POTASSIUM 3.7 mmol/L (3.5-5.1); SODIUM SERUM 143 mmol/L (136-145); UREA NITROGEN, BLOOD 18 mg/dL (7-18)
[2017-05-23 09:00] VITALS: BP 137/67
[2017-05-23] MEDS ORDERED: PETROLATUM,WHITE 71 GM JELLY TP PRN (10:00)
[2017-05-23] MEDS ORDERED: BACITRACIN 28.4 GM OINTMENT TP PRN (10:00)
[2017-05-23] MEDS ORDERED: ONDANSETRON HCL 4 MG TABLET PO PRN (10:00)
[2017-05-23] MEDS ORDERED: BENZOCAINE/MENTHOL LOZENGE [8 LOZENGES/PACKET] MM PRN (10:00)
[2017-05-23] MEDS ORDERED: LOPERAMIDE HCL 2 MG CAPSULE PO PRN (10:00)
[2017-05-23] MEDS ORDERED: CloNIDine HCL 0.1 MG TABLET PO PRN (10:00)
[2017-05-23] MEDS ORDERED: ALBUTEROL SULFATE HFA 90 MCG/PUFF 8 GM INHALER IH PRN (10:00)
[2017-05-23] MEDS ORDERED: MAG HYDROX/AL HYDROX/SIMETH ES 30 ML SUSPENSION UDCUP PO PRN (10:00)
[2017-05-23] MEDS ORDERED: MAGNESIUM HYDROXIDE SUSPENSION 30 ML UDCUP PO PRN (10:00)
[2017-05-23 16:45] VITALS: BP 157/88
[2017-05-23] MEDS: PALIPERIDONE 3 MG ER TABLET PO SCH (20:15)
[2017-05-24 08:35] VITALS: BP 160/111
[2017-05-24] MEDS: TAMSULOSIN HCL 0.4 MG CAPSULE PO SCH (08:36)
[2017-05-24] MEDS: DOCUSATE SODIUM 100 MG CAPSULE PO SCH (08:36)
[2017-05-24] MEDS: LISINOPRIL 10 MG TABLET PO SCH (08:36)
[2017-05-24] MEDS: OMEPRAZOLE 20 MG CAPSULE PO SCH (08:36)
[2017-05-24] MEDS: CHOLECALCIFEROL (VIT D3) 1,000 UNITS TABLET PO SCH (08:36)
[2017-05-24] MEDS: PALIPERIDONE 3 MG ER TABLET PO SCH ×2 (09:00→20:20)
[2017-05-24 09:38] VITALS: BP 156/105
[2017-05-24 10:55] LABS: ADD UA MICROSCOPIC NO; APPEARANCE,URINE CLEAR (CLEAR); GLUCOSE, URINE (UA) NEGATIVE (NEGATIVE); KETONES,URINE NEGATIVE (NEGATIVE); LEUKOCYTE ESTERASE ,URINE NEGATIVE (NEGATIVE); OCCULT BLOOD,URINE NEGATIVE (NEGATIVE); PH,URINE 5.5 (5.0-8.0); PROTEIN,URINE NEGATIVE (NEGATIVE)
[2017-05-24 13:00] VITALS: BP 140/89
[2017-05-24 17:11] VITALS: BP 139/67
[2017-05-25 08:00] VITALS: BP 136/63
[2017-05-25 08:15] VITALS: BP 136/63
[2017-05-25] MEDS: PALIPERIDONE 3 MG ER TABLET PO SCH ×3 (09:00→20:08)
[2017-05-25] MEDS: TAMSULOSIN HCL 0.4 MG CAPSULE PO SCH (09:10)
[2017-05-25] MEDS: CHOLECALCIFEROL (VIT D3) 1,000 UNITS TABLET PO SCH (09:10)
[2017-05-25] MEDS: LISINOPRIL 10 MG TABLET PO SCH (09:10)
[2017-05-25] MEDS: DOCUSATE SODIUM 100 MG CAPSULE PO SCH (09:10)
[2017-05-25] MEDS: OMEPRAZOLE 20 MG CAPSULE PO SCH (09:10)
[2017-05-25 16:43] VITALS: BP 128/48
[2017-05-26] MEDS ORDERED: LISI-661 PO (05:57)
[2017-05-26] MEDS ORDERED: ATOM40 PO (05:57)
[2017-05-26] MEDS ORDERED: TRAM50TA4 PO (05:57)
[2017-05-26] MEDS ORDERED: VENL-193 PO (05:57)
[2017-05-26] MEDS ORDERED: LORA1TAB3 PO (05:57)
[2017-05-26] MEDS ORDERED: BACL10TA PO (05:57)
[2017-05-26] MEDS ORDERED: PANT40TA25 PO (05:57)
[2017-05-26] MEDS ORDERED: TAMS0.4C32 PO (05:57)
[2017-05-26 08:00] VITALS: BP 169/99
[2017-05-26] MEDS: CHOLECALCIFEROL (VIT D3) 1,000 UNITS TABLET PO SCH (08:12)
[2017-05-26] MEDS: TAMSULOSIN HCL 0.4 MG CAPSULE PO SCH (08:12)
[2017-05-26] MEDS: OMEPRAZOLE 20 MG CAPSULE PO SCH (08:12)
[2017-05-26] MEDS: LISINOPRIL 10 MG TABLET PO SCH (08:15)
[2017-05-26] MEDS: DOCUSATE SODIUM 100 MG CAPSULE PO SCH (08:16)
[2017-05-26 09:00] VITALS: BP 149/88
[2017-05-26 16:35] VITALS: BP 141/67
[2017-05-26] MEDS: OLANZapine 7.5 MG TABLET PO SCH (20:42)
[2017-05-27] MEDS: CHOLECALCIFEROL (VIT D3) 1,000 UNITS TABLET PO SCH (08:08)
[2017-05-27] MEDS: LISINOPRIL 10 MG TABLET PO SCH (08:08)
[2017-05-27] MEDS: DOCUSATE SODIUM 100 MG CAPSULE PO SCH (08:08)
[2017-05-27] MEDS: OMEPRAZOLE 20 MG CAPSULE PO SCH (08:08)
[2017-05-27] MEDS: TAMSULOSIN HCL 0.4 MG CAPSULE PO SCH (08:08)
[2017-05-27 08:26] VITALS: BP 155/90
[2017-05-27] MEDS: IBUPROFEN 600 MG TABLET PO PRN (09:31)
[2017-05-27 16:32] VITALS: BP 147/86
[2017-05-27] MEDS: OLANZapine 7.5 MG TABLET PO SCH (20:23)
[2017-05-28 06:15] VITALS: BP 144/87
[2017-05-28] MEDS: CHOLECALCIFEROL (VIT D3) 1,000 UNITS TABLET PO SCH (08:07)
[2017-05-28] MEDS: OMEPRAZOLE 20 MG CAPSULE PO SCH (08:07)
[2017-05-28] MEDS: DOCUSATE SODIUM 100 MG CAPSULE PO SCH (08:08)
[2017-05-28] MEDS: TAMSULOSIN HCL 0.4 MG CAPSULE PO SCH (08:20)
[2017-05-28] MEDS: LISINOPRIL 10 MG TABLET PO SCH (08:20)
[2017-05-28] MEDS: ACETAMINOPHEN 325 MG TABLET PO PRN (09:14)
[2017-05-28 09:18] VITALS: BP 170/99
[2017-05-28 10:14] VITALS: BP 147/88
[2017-05-28] MEDS ORDERED: DSS100 PO (11:12)
[2017-05-28] MEDS ORDERED: OLAN7.5T2 PO (11:12)
[2017-05-28 16:40] VITALS: BP 141/76
[2017-05-28] MEDS: OLANZapine 7.5 MG TABLET PO SCH (21:00)
[2017-05-29] MEDS: CHOLECALCIFEROL (VIT D3) 1,000 UNITS TABLET PO SCH (08:14)
[2017-05-29] MEDS: OMEPRAZOLE 20 MG CAPSULE PO SCH (08:14)
[2017-05-29] MEDS: DOCUSATE SODIUM 100 MG CAPSULE PO SCH (08:14)
[2017-05-29 08:15] VITALS: BP 151/98
[2017-05-29] MEDS: LISINOPRIL 10 MG TABLET PO SCH (08:15)
[2017-05-29] MEDS: ACETAMINOPHEN 325 MG TABLET PO PRN (08:15)
[2017-05-29] MEDS: TAMSULOSIN HCL 0.4 MG CAPSULE PO SCH (08:15)
[2017-05-29 16:33] VITALS: BP 140/79
[2017-05-29] MEDS: OLANZapine 7.5 MG TABLET PO SCH (21:00)
[2017-05-30 08:49] VITALS: BP 156/91
[2017-05-30] MEDS: DOCUSATE SODIUM 100 MG CAPSULE PO SCH (09:09)
[2017-05-30] MEDS: CHOLECALCIFEROL (VIT D3) 1,000 UNITS TABLET PO SCH (09:09)
[2017-05-30] MEDS: OMEPRAZOLE 20 MG CAPSULE PO SCH (09:09)
[2017-05-30] MEDS: TAMSULOSIN HCL 0.4 MG CAPSULE PO SCH (09:09)
[2017-05-30] MEDS: LISINOPRIL 10 MG TABLET PO SCH (09:09)
[2017-05-30 09:10] VITALS: BP 140/90
[2017-05-30] MEDS: IBUPROFEN 600 MG TABLET PO PRN (09:10)
[2017-05-30 16:28] VITALS: BP 144/72
[2017-05-30] MEDS: OLANZapine 7.5 MG TABLET PO SCH (20:10)
[2017-05-31 03:56] VITALS: BP 129/85
[2017-05-31 08:19] VITALS: BP 160/75
[2017-05-31] MEDS: IBUPROFEN 600 MG TABLET PO PRN (08:19)
[2017-05-31 09:06] VITALS: BP 160/75
[2017-05-31] MEDS: TAMSULOSIN HCL 0.4 MG CAPSULE PO SCH (09:13)
[2017-05-31] MEDS: OMEPRAZOLE 20 MG CAPSULE PO SCH (09:13)
[2017-05-31] MEDS: CHOLECALCIFEROL (VIT D3) 1,000 UNITS TABLET PO SCH (09:13)
[2017-05-31] MEDS: LISINOPRIL 10 MG TABLET PO SCH (09:14)
[2017-05-31] MEDS: DOCUSATE SODIUM 100 MG CAPSULE PO SCH (09:14)
[2017-05-31 16:40] VITALS: BP 143/89
[2017-05-31] MEDS: OLANZapine 7.5 MG TABLET PO SCH (21:00)
[2017-06-01 05:05] VITALS: BP 143/76
[2017-06-01] MEDS: IBUPROFEN 600 MG TABLET PO PRN (05:07)
[2017-06-01 08:50] VITALS: BP 147/61
[2017-06-01] MEDS: LISINOPRIL 10 MG TABLET PO SCH (09:02)
[2017-06-01] MEDS: CHOLECALCIFEROL (VIT D3) 1,000 UNITS TABLET PO SCH (09:02)
[2017-06-01] MEDS: TAMSULOSIN HCL 0.4 MG CAPSULE PO SCH (09:02)
[2017-06-01] MEDS: OMEPRAZOLE 20 MG CAPSULE PO SCH (09:02)
[2017-06-01] MEDS: DOCUSATE SODIUM 100 MG CAPSULE PO SCH (09:02)
[2017-06-01 17:00] VITALS: BP 142/90
[2017-06-01] MEDS: OLANZapine 7.5 MG TABLET PO SCH (21:00)
[2017-06-02 08:26] VITALS: BP 146/87
[2017-06-02] MEDS: IBUPROFEN 600 MG TABLET PO PRN (09:15)
[2017-06-02] MEDS: LISINOPRIL 10 MG TABLET PO SCH (09:54)
[2017-06-02] MEDS: TAMSULOSIN HCL 0.4 MG CAPSULE PO SCH (09:54)
[2017-06-02] MEDS: OMEPRAZOLE 20 MG CAPSULE PO SCH (09:54)
[2017-06-02] MEDS: DOCUSATE SODIUM 100 MG CAPSULE PO SCH (09:54)
[2017-06-02] MEDS: CHOLECALCIFEROL (VIT D3) 1,000 UNITS TABLET PO SCH (09:54)
[2017-06-02 17:00] VITALS: BP 129/59
[2017-06-02] MEDS: OLANZapine 7.5 MG TABLET PO SCH (21:00)
[2017-06-03 08:30] VITALS: BP 155/95
[2017-06-03] MEDS: CHOLECALCIFEROL (VIT D3) 1,000 UNITS TABLET PO SCH (08:36)
[2017-06-03] MEDS: DOCUSATE SODIUM 100 MG CAPSULE PO SCH (08:36)
[2017-06-03] MEDS: OMEPRAZOLE 20 MG CAPSULE PO SCH (08:37)
[2017-06-03] MEDS: TAMSULOSIN HCL 0.4 MG CAPSULE PO SCH (08:37)
[2017-06-03] MEDS: LISINOPRIL 10 MG TABLET PO SCH (08:37)
[2017-06-03] MEDS: IBUPROFEN 600 MG TABLET PO PRN (08:42)
[2017-06-03 18:41] VITALS: BP 141/75
[2017-06-03] MEDS: OLANZapine 7.5 MG TABLET PO SCH (21:00)
[2017-06-04 08:47] VITALS: BP 153/62
[2017-06-04] MEDS: CHOLECALCIFEROL (VIT D3) 1,000 UNITS TABLET PO SCH (08:58)
[2017-06-04] MEDS: TAMSULOSIN HCL 0.4 MG CAPSULE PO SCH (08:58)
[2017-06-04] MEDS: OMEPRAZOLE 20 MG CAPSULE PO SCH (08:59)
[2017-06-04] MEDS: LISINOPRIL 10 MG TABLET PO SCH (08:59)
[2017-06-04] MEDS: DOCUSATE SODIUM 100 MG CAPSULE PO SCH (08:59)
[2017-06-04] MEDS: OLANZapine 7.5 MG TABLET PO SCH (21:00)
[2017-06-04 22:21] VITALS: BP 156/98
[2017-06-05] MEDS: CHOLECALCIFEROL (VIT D3) 1,000 UNITS TABLET PO SCH (08:35)
[2017-06-05] MEDS: TAMSULOSIN HCL 0.4 MG CAPSULE PO SCH (08:35)
[2017-06-05] MEDS: OMEPRAZOLE 20 MG CAPSULE PO SCH (08:35)
[2017-06-05] MEDS: LISINOPRIL 10 MG TABLET PO SCH (08:35)
[2017-06-05] MEDS: DOCUSATE SODIUM 100 MG CAPSULE PO SCH (08:36)
[2017-06-05 08:54] VITALS: BP 187/94
[2017-06-05] MEDS: IBUPROFEN 600 MG TABLET PO PRN (08:54)
[2017-06-05] MEDS: OLANZapine 7.5 MG TABLET PO SCH (21:00)
[2017-06-06] MEDS: DOCUSATE SODIUM 100 MG CAPSULE PO SCH (09:26)
[2017-06-06] MEDS: CHOLECALCIFEROL (VIT D3) 1,000 UNITS TABLET PO SCH (09:26)
[2017-06-06] MEDS: TAMSULOSIN HCL 0.4 MG CAPSULE PO SCH (09:26)
[2017-06-06] MEDS: OMEPRAZOLE 20 MG CAPSULE PO SCH (09:26)
[2017-06-06] MEDS: LISINOPRIL 20 MG TABLET PO SCH (09:28)
[2017-06-06 09:31] VITALS: BP 176/92
[2017-06-06] MEDS: IBUPROFEN 600 MG TABLET PO PRN (09:31)
[2017-06-06 10:31] VITALS: BP 130/70
[2017-06-06 16:33] VITALS: BP 151/83
[2017-06-06] MEDS: OLANZapine 7.5 MG TABLET PO SCH (21:00)
[2017-06-07 09:17] VITALS: BP 143/81
[2017-06-07] MEDS: OMEPRAZOLE 20 MG CAPSULE PO SCH (09:31)
[2017-06-07] MEDS: LISINOPRIL 20 MG TABLET PO SCH (09:31)
[2017-06-07] MEDS: TAMSULOSIN HCL 0.4 MG CAPSULE PO SCH (09:31)
[2017-06-07] MEDS: CHOLECALCIFEROL (VIT D3) 1,000 UNITS TABLET PO SCH (09:31)
[2017-06-07 09:32] VITALS: BP 136/79
[2017-06-07] MEDS: IBUPROFEN 600 MG TABLET PO PRN (09:32)
[2017-06-07] MEDS: DOCUSATE SODIUM 100 MG CAPSULE PO SCH (09:33)
[2017-06-07 17:00] VITALS: BP 160/95
[2017-06-07] MEDS: PALIPERIDONE 6 MG ER TABLET PO SCH (20:16)
[2017-06-08] MEDS: CHOLECALCIFEROL (VIT D3) 1,000 UNITS TABLET PO SCH (08:03)
[2017-06-08] MEDS: DIVALPROEX SODIUM 500 MG DR TABLET PO SCH ×2 (08:03→16:52)
[2017-06-08] MEDS: DOCUSATE SODIUM 100 MG CAPSULE PO SCH (08:03)
[2017-06-08] MEDS: TAMSULOSIN HCL 0.4 MG CAPSULE PO SCH (08:04)
[2017-06-08] MEDS: OMEPRAZOLE 20 MG CAPSULE PO SCH (08:04)
[2017-06-08 08:05] VITALS: BP 140/79
[2017-06-08] MEDS: LISINOPRIL 20 MG TABLET PO SCH (08:05)
[2017-06-08] MEDS: IBUPROFEN 600 MG TABLET PO PRN (08:09)
[2017-06-08 17:56] VITALS: BP 149/68
[2017-06-08] MEDS: PALIPERIDONE 6 MG ER TABLET PO SCH (20:31)
[2017-06-09 08:13] VITALS: BP 140/70
[2017-06-09] MEDS: IBUPROFEN 600 MG TABLET PO PRN (08:13)
[2017-06-09] MEDS: OMEPRAZOLE 20 MG CAPSULE PO SCH (08:54)
[2017-06-09] MEDS: DIVALPROEX SODIUM 500 MG DR TABLET PO SCH ×2 (08:54→16:29)
[2017-06-09] MEDS: CHOLECALCIFEROL (VIT D3) 1,000 UNITS TABLET PO SCH (08:54)
[2017-06-09] MEDS: TAMSULOSIN HCL 0.4 MG CAPSULE PO SCH (08:55)
[2017-06-09] MEDS: DOCUSATE SODIUM 100 MG CAPSULE PO SCH (08:55)
[2017-06-09] MEDS: LISINOPRIL 20 MG TABLET PO SCH (08:55)
[2017-06-09 09:13] VITALS: BP 139/78
[2017-06-09 16:14] VITALS: BP 152/69
[2017-06-09] MEDS: PALIPERIDONE 6 MG ER TABLET PO SCH (20:57)
[2017-06-10] MEDS: DIVALPROEX SODIUM 500 MG DR TABLET PO SCH ×2 (09:13→16:10)
[2017-06-10] MEDS: DOCUSATE SODIUM 100 MG CAPSULE PO SCH (09:13)
[2017-06-10] MEDS: OMEPRAZOLE 20 MG CAPSULE PO SCH (09:13)
[2017-06-10] MEDS: LISINOPRIL 20 MG TABLET PO SCH (09:13)
[2017-06-10] MEDS: CHOLECALCIFEROL (VIT D3) 1,000 UNITS TABLET PO SCH (09:14)
[2017-06-10] MEDS: TAMSULOSIN HCL 0.4 MG CAPSULE PO SCH (09:14)
[2017-06-10 09:18] VITALS: BP 104/69
[2017-06-10] MEDS: IBUPROFEN 600 MG TABLET PO PRN (09:18)
[2017-06-10 17:00] VITALS: BP 112/64
[2017-06-10] MEDS: PALIPERIDONE 6 MG ER TABLET PO SCH (20:11)
[2017-06-11] MEDS: OMEPRAZOLE 20 MG CAPSULE PO SCH (08:14)
[2017-06-11] MEDS: LISINOPRIL 20 MG TABLET PO SCH (08:14)
[2017-06-11] MEDS: DIVALPROEX SODIUM 500 MG DR TABLET PO SCH ×2 (08:14→17:18)
[2017-06-11] MEDS: DOCUSATE SODIUM 100 MG CAPSULE PO SCH (08:14)
[2017-06-11] MEDS: TAMSULOSIN HCL 0.4 MG CAPSULE PO SCH (08:14)
[2017-06-11] MEDS: CHOLECALCIFEROL (VIT D3) 1,000 UNITS TABLET PO SCH (08:14)
[2017-06-11 08:15] VITALS: BP 143/106
[2017-06-11] MEDS: IBUPROFEN 600 MG TABLET PO PRN (08:18)
[2017-06-11 08:20] VITALS: BP 135/95
[2017-06-11] MEDS ORDERED: LORazepam 2 MG TABLET PO PRN (09:30)
[2017-06-11] MEDS ORDERED: ZOLPIDEM TARTRATE 10 MG TABLET PO PRN (09:30)
[2017-06-11 17:25] VITALS: BP 137/89
[2017-06-11] MEDS: PALIPERIDONE 6 MG ER TABLET PO SCH (21:29)
[2017-06-11] MEDS ORDERED: HALOPERIDOL LACTATE 5 MG/ML VIAL IM PRN (23:45)
[2017-06-12] MEDS: CHOLECALCIFEROL (VIT D3) 1,000 UNITS TABLET PO SCH (08:43)
[2017-06-12] MEDS: DOCUSATE SODIUM 100 MG CAPSULE PO SCH (08:43)
[2017-06-12] MEDS: TAMSULOSIN HCL 0.4 MG CAPSULE PO SCH (08:44)
[2017-06-12] MEDS: DIVALPROEX SODIUM 500 MG DR TABLET PO SCH ×2 (08:44→16:32)
[2017-06-12] MEDS: OMEPRAZOLE 20 MG CAPSULE PO SCH (08:44)
[2017-06-12] MEDS: LISINOPRIL 20 MG TABLET PO SCH (08:44)
[2017-06-12 08:59] VITALS: BP 151/91
[2017-06-12] MEDS: IBUPROFEN 600 MG TABLET PO PRN (08:59)
[2017-06-12 17:00] VITALS: BP 117/46
[2017-06-12] MEDS: PALIPERIDONE 6 MG ER TABLET PO SCH (20:40)
[2017-06-13 05:50] VITALS: BP 148/73
[2017-06-13] MEDS ORDERED: PALI6 PO (08:09)
[2017-06-13] MEDS ORDERED: DIVA500T35 PO (08:10)
[2017-06-13] MEDS ORDERED: LISI-662 PO (08:13)
[2017-06-13] MEDS: DIVALPROEX SODIUM 500 MG DR TABLET PO SCH (09:06)
[2017-06-13] MEDS: OMEPRAZOLE 20 MG CAPSULE PO SCH (09:06)
[2017-06-13] MEDS: PALIPERIDONE 6 MG ER TABLET PO SCH (09:07)
[2017-06-13] MEDS: TAMSULOSIN HCL 0.4 MG CAPSULE PO SCH (09:07)
[2017-06-13] MEDS: LISINOPRIL 20 MG TABLET PO SCH (09:07)
[2017-06-13] MEDS: CHOLECALCIFEROL (VIT D3) 1,000 UNITS TABLET PO SCH (09:07)
[2017-06-13] MEDS: DOCUSATE SODIUM 100 MG CAPSULE PO SCH (09:07)
[2017-06-13] MEDS: IBUPROFEN 600 MG TABLET PO PRN (09:09)
[2017-06-13 09:13] VITALS: BP 132/81
[2017-06-13 10:11] VITALS: BP 138/74
== END 2017-06-13 15:05 | disposition home or self-care (01) | DRG 885 ==
LOC: 3EX 05-23 02:11
PROVIDERS: ADMIT Psychiatry & Neurology Psychiatry; ATTEND Psychiatry & Neurology Psychiatry
DX: F20.0 Paranoid schizophrenia (principal); J44.9 Chronic obstructive pulmonary disease, unspecified; Z91.19 Patient's noncompliance with other medical treatment and regimen; I10 Essential (primary) hypertension; F32.9 Major depressive disorder, single episode, unspecified; E66.9 Obesity, unspecified; F17.200 Nicotine dependence, unspecified, uncomplicated; Z71.6 Tobacco abuse counseling; K21.9 Gastro-esophageal reflux disease without esophagitis; K59.00 Constipation, unspecified; M19.90 Unspecified osteoarthritis, unspecified site
CPT/HCPCS: 80307; 87081

== ENCOUNTER 2017-07-08 23:42 | Emergency (ER) | payer MEDICARE, OTHER ==
[~2017-07-08] VITALS: Ht 193 cm; Wt 127.3 kg
[~2017-07-08 23:42] MED LIST changes: +DIVA500T35 PO; -DOCU250C91 PO; +DSS100 PO; +FERR-89 PO; -LISI-661 PO; +LISI-662 PO; -PALI3 PO; +PALI6 PO
[2017-07-09] MEDS ORDERED: LIDOCAINE HCL 2% 5 ML JELLY TP ONE
[2017-07-09] MEDS ORDERED: PETROLATUM,WHITE 5 GM PACKET JELLY TP ONE (00:15)
[2017-07-09] MEDS ORDERED: LIDOCAINE HCL 1% 10 ML VIAL INJ ONE (00:15)
[2017-07-09] MEDS ORDERED: LIDOCAINE HCL/PF 1% 5 ML VIAL INJ ONE (00:15)
[2017-07-09] MEDS ORDERED: MUPIROCIN CALCIUM 2% 22 GM OINTMENT TP ONE (01:15)
[2017-07-09 01:20] VITALS: BP 153/62
[2017-07-09] MEDS ORDERED: IBUPROFEN 800 MG TABLET PO ONE (01:30)
[2017-07-09] MEDS ORDERED: PERTUSS(ACELL),DIPH,TET VAC/PF 0.5 ML VIAL IM ONE (01:30)
== END 2017-07-09 01:55 | disposition home or self-care (01) ==
LOC: EMS 23:44
DX: S39.94XA Unspecified injury of external genitals, initial encounter (principal); M79.5 Residual foreign body in soft tissue; I10 Essential (primary) hypertension; F17.210 Nicotine dependence, cigarettes, uncomplicated; X58.XXXA Exposure to other specified factors, initial encounter; Y93.89 Activity, other specified; Y92.89 Other specified places as the place of occurrence of the external cause; Y99.8 Other external cause status
CPT/HCPCS: 90471; 90715; 99284; J3490

== ENCOUNTER 2017-08-08 20:08 | Inpatient (IN) | payer MEDICARE, MEDICAID ==
[~2017-08-08] VITALS: Ht 193 cm; Wt 130.6 kg
[~2017-08-08 20:08] MED LIST changes: -FERR-89 PO
[2017-08-08] MEDS ORDERED: HALOPERIDOL 5 MG TABLET PO PRN (20:30)
[2017-08-08] MEDS ORDERED: ZOLPIDEM TARTRATE 10 MG TABLET PO PRN (20:30)
[2017-08-08 20:59] VITALS: BP 149/72
[2017-08-09 06:35] VITALS: BP 136/71
[2017-08-09] MEDS ORDERED: ALBUTEROL SULFATE HFA 90 MCG/PUFF 8 GM INHALER IH PRN (08:15)
[2017-08-09] MEDS ORDERED: MAG HYDROX/AL HYDROX/SIMETH ES 30 ML SUSPENSION UDCUP PO PRN (08:15)
[2017-08-09] MEDS ORDERED: ONDANSETRON HCL 4 MG TABLET PO PRN (08:15)
[2017-08-09] MEDS ORDERED: PETROLATUM,WHITE 71 GM JELLY TP PRN (08:15)
[2017-08-09] MEDS ORDERED: BENZOCAINE/MENTHOL LOZENGE MM PRN (08:15)
[2017-08-09] MEDS ORDERED: MAGNESIUM HYDROXIDE SUSPENSION 30 ML UDCUP PO PRN (08:15)
[2017-08-09] MEDS ORDERED: BACITRACIN 28.4 GM OINTMENT TP PRN (08:15)
[2017-08-09] MEDS ORDERED: ACETAMINOPHEN 325 MG TABLET PO PRN (08:15)
[2017-08-09] MEDS ORDERED: CloNIDine HCL 0.1 MG TABLET PO PRN (08:15)
[2017-08-09] MEDS ORDERED: LOPERAMIDE HCL 2 MG CAPSULE PO PRN (08:15)
[2017-08-09 08:19] LABS: BASOPHILS # (AUTO) 0.03 K/uL (0.00-0.20); BASOPHILS % (AUTO) 0.5 % (0.0-2.0); EOSINOPHILS # (AUTO) 0.15 K/uL (0.00-0.70); EOSINOPHILS % (AUTO) 2.72 % (1.0-6.0); HEMATOCRIT 36.3 % (41-53); HEMOGLOBIN 11.8 g/dL (13.5-17.5); LYMPHOCYTES # (AUTO) 1.6 K/uL (1.0-4.8); MEAN CORPUSCULAR HEMOGLOBIN 28.7 pg (26.0-34.0); MEAN CORPUSCULAR HGB CONC 32.6 G/dL (31.0-37.0); MEAN CORPUSCULAR VOLUME 88 fL (80-100); MONOCYTES # (AUTO) 0.4 K/uL (0.1-1.0); MONOCYTES % (AUTO) 7.3 % (2.0-9.0); NEUTROPHILS # (AUTO) 3.3 K/uL (1.8-7.7); NEUTROPHILS % (AUTO) 60.4 % (40.0-70.0); PLATELET COUNT (AUTO) 185 K/uL (150-450); RED BLOOD CELL COUNT(AUTO) 4.11 MIL/uL (4.50-5.90); RED CELL DISTRIBUTION WIDTH 14.7 % (11.5-14.5); WHITE BLOOD COUNT (AUTO) 5.5 K/uL (4.5-11.0)
[2017-08-09 08:43] VITALS: BP 139/80
[2017-08-09] MEDS: TAMSULOSIN HCL 0.4 MG CAPSULE PO SCH (08:43)
[2017-08-09] MEDS: CHOLECALCIFEROL (VIT D3) 1,000 UNITS TABLET PO SCH (08:43)
[2017-08-09] MEDS: DOCUSATE SODIUM 100 MG CAPSULE PO SCH (08:43)
[2017-08-09] MEDS: LISINOPRIL 20 MG TABLET PO SCH (08:43)
[2017-08-09] MEDS: OMEPRAZOLE 20 MG CAPSULE PO SCH (08:43)
[2017-08-09 08:45] LABS: HEMOGLOBIN A1C 5.9 % (4.5-6.2)
[2017-08-09] MEDS: IBUPROFEN 600 MG TABLET PO PRN (09:18)
[2017-08-09 09:38] LABS: ALANINE AMINOTRANSFERASE 20 U/L (12-78); ALBUMIN 3.3 g/dL (3.4-5.0); ANION GAP 7 mmol/L (8-16); ASPARTATE AMINOTRANSFERASE 14 U/L (15-37); BILIRUBIN,TOTAL 0.5 mg/dL (0.1-1.0); CALCIUM, TOTAL 8.6 mg/dL (8.8-10.5); CARBON DIOXIDE 25 mmol/L (22-29); CHLORIDE 111 mmol/L (98-107); CHOL/HDL RATIO 3.6 (4.2-7.3); CREATININE 1.16 mg/dL (0.60-1.30); GLOMERULAR FILTR. RATE CALC > 60 mL/min (>60); POTASSIUM 3.9 mmol/L (3.5-5.1); SODIUM SERUM 143 mmol/L (136-145); THYROID STIMULATING HORMONE 2.34 uIU/mL (0.36-3.74); TOTAL PROTEIN, SERUM 6.3 g/dL (6.4-8.2); UREA NITROGEN, BLOOD 22 mg/dL (7-18)
[2017-08-09 16:49] VITALS: BP 127/80
[2017-08-09] MEDS: DIVALPROEX SODIUM 500 MG DR TABLET PO SCH (17:15)
[2017-08-09] MEDS: PALIPERIDONE 6 MG ER TABLET PO SCH (20:43)
[2017-08-10 07:30] VITALS: BP 132/81
[2017-08-10] MEDS: TAMSULOSIN HCL 0.4 MG CAPSULE PO SCH (08:17)
[2017-08-10] MEDS: CHOLECALCIFEROL (VIT D3) 1,000 UNITS TABLET PO SCH (08:18)
[2017-08-10] MEDS: DIVALPROEX SODIUM 500 MG DR TABLET PO SCH ×2 (08:18→17:13)
[2017-08-10] MEDS: OMEPRAZOLE 20 MG CAPSULE PO SCH (08:18)
[2017-08-10] MEDS: DOCUSATE SODIUM 100 MG CAPSULE PO SCH (08:18)
[2017-08-10] MEDS: LORazepam 2 MG TABLET PO PRN ×2 (08:18→17:13)
[2017-08-10] MEDS: LISINOPRIL 20 MG TABLET PO SCH (08:18)
[2017-08-10 08:25] VITALS: BP 134/71
[2017-08-10] MEDS: IBUPROFEN 600 MG TABLET PO PRN (08:27)
[2017-08-10] MEDS: PALIPERIDONE 6 MG ER TABLET PO SCH (21:09)
[2017-08-11 06:17] VITALS: BP 138/88
[2017-08-11] MEDS: FERROUS SULFATE 325 MG EC TABLET PO SCH ×2 (06:35→17:11)
[2017-08-11 08:17] VITALS: BP 140/81
[2017-08-11 08:19] LABS: HEMOGLOBIN 12.2 g/dL (13.5-17.5); MEAN CORPUSCULAR HEMOGLOBIN 28.8 pg (26.0-34.0); MEAN CORPUSCULAR HGB CONC 33.1 G/dL (31.0-37.0); MEAN CORPUSCULAR VOLUME 87 fL (80-100); PLATELET COUNT (AUTO) 198 K/uL (150-450); RED BLOOD CELL COUNT(AUTO) 4.25 MIL/uL (4.50-5.90); RED CELL DISTRIBUTION WIDTH 14.4 % (11.5-14.5); WHITE BLOOD COUNT (AUTO) 5.2 K/uL (4.5-11.0)
[2017-08-11 08:32] LABS: ANION GAP 7 mmol/L (8-16); CALCIUM, TOTAL 8.6 mg/dL (8.8-10.5); CARBON DIOXIDE 25 mmol/L (22-29); CHLORIDE 109 mmol/L (98-107); CREATININE 1.11 mg/dL (0.60-1.30); GLOMERULAR FILTR. RATE CALC > 60 mL/min (>60); PHOSPHORUS 2.5 mg/dL (2.5-4.9); POTASSIUM 4.2 mmol/L (3.5-5.1); SODIUM SERUM 141 mmol/L (136-145); UREA NITROGEN, BLOOD 18 mg/dL (7-18)
[2017-08-11] MEDS: LISINOPRIL 20 MG TABLET PO SCH (09:13)
[2017-08-11] MEDS: TAMSULOSIN HCL 0.4 MG CAPSULE PO SCH (09:13)
[2017-08-11] MEDS: DIVALPROEX SODIUM 500 MG DR TABLET PO SCH ×2 (09:13→17:11)
[2017-08-11] MEDS: DOCUSATE SODIUM 100 MG CAPSULE PO SCH (09:13)
[2017-08-11] MEDS: LORazepam 2 MG TABLET PO PRN ×2 (09:13→17:11)
[2017-08-11] MEDS: CHOLECALCIFEROL (VIT D3) 1,000 UNITS TABLET PO SCH (09:13)
[2017-08-11] MEDS: OMEPRAZOLE 20 MG CAPSULE PO SCH (09:13)
[2017-08-11 11:11] LABS: BASOPHILS % (MANUAL) 3 % (0-2); EOSINOPHILS % (MANUAL) 4 % (1-6); LYMPHOCYTES % (MANUAL) 22 % (22-44); TOTAL CELLS COUNTED 100
[2017-08-11 16:00] VITALS: BP 110/71
[2017-08-11] MEDS: PALIPERIDONE 6 MG ER TABLET PO SCH (20:30)
[2017-08-12 06:34] VITALS: BP 128/67
[2017-08-12] MEDS: FERROUS SULFATE 325 MG EC TABLET PO SCH ×2 (06:44→16:22)
[2017-08-12 08:12] VITALS: BP 149/96
[2017-08-12] MEDS: LISINOPRIL 20 MG TABLET PO SCH (08:40)
[2017-08-12] MEDS: DOCUSATE SODIUM 100 MG CAPSULE PO SCH (08:40)
[2017-08-12] MEDS: CHOLECALCIFEROL (VIT D3) 1,000 UNITS TABLET PO SCH (08:40)
[2017-08-12] MEDS: DIVALPROEX SODIUM 500 MG DR TABLET PO SCH ×2 (08:40→16:22)
[2017-08-12] MEDS: OMEPRAZOLE 20 MG CAPSULE PO SCH (08:40)
[2017-08-12] MEDS: TAMSULOSIN HCL 0.4 MG CAPSULE PO SCH (08:40)
[2017-08-12] MEDS: LORazepam 2 MG TABLET PO PRN (16:22)
[2017-08-12 16:49] VITALS: BP 132/86
[2017-08-12] MEDS: PALIPERIDONE 6 MG ER TABLET PO SCH (20:27)
[2017-08-13] MEDS: FERROUS SULFATE 325 MG EC TABLET PO SCH ×2 (06:47→16:22)
[2017-08-13 06:57] VITALS: BP 132/78
[2017-08-13 08:39] VITALS: BP 138/77
[2017-08-13] MEDS: LISINOPRIL 20 MG TABLET PO SCH (09:34)
[2017-08-13] MEDS: CHOLECALCIFEROL (VIT D3) 1,000 UNITS TABLET PO SCH (09:34)
[2017-08-13] MEDS: TAMSULOSIN HCL 0.4 MG CAPSULE PO SCH (09:34)
[2017-08-13] MEDS: OMEPRAZOLE 20 MG CAPSULE PO SCH (09:34)
[2017-08-13] MEDS: DOCUSATE SODIUM 100 MG CAPSULE PO SCH (09:34)
[2017-08-13] MEDS: DIVALPROEX SODIUM 500 MG DR TABLET PO SCH ×2 (09:34→16:22)
[2017-08-13] MEDS: IBUPROFEN 600 MG TABLET PO PRN (13:38)
[2017-08-13 16:00] VITALS: BP 123/66
[2017-08-13] MEDS: LORazepam 2 MG TABLET PO PRN (16:23)
[2017-08-13] MEDS: PALIPERIDONE 6 MG ER TABLET PO SCH (20:33)
[2017-08-14 06:14] VITALS: BP 133/88
[2017-08-14] MEDS: FERROUS SULFATE 325 MG EC TABLET PO SCH ×2 (06:15→17:01)
[2017-08-14 08:00] VITALS: BP 114/71
[2017-08-14] MEDS: DIVALPROEX SODIUM 500 MG DR TABLET PO SCH ×2 (09:10→17:01)
[2017-08-14] MEDS: OMEPRAZOLE 20 MG CAPSULE PO SCH (09:10)
[2017-08-14] MEDS: TAMSULOSIN HCL 0.4 MG CAPSULE PO SCH (09:10)
[2017-08-14] MEDS: DOCUSATE SODIUM 100 MG CAPSULE PO SCH (09:10)
[2017-08-14] MEDS: LORazepam 2 MG TABLET PO PRN (09:10)
[2017-08-14] MEDS: CHOLECALCIFEROL (VIT D3) 1,000 UNITS TABLET PO SCH (09:10)
[2017-08-14] MEDS: LISINOPRIL 20 MG TABLET PO SCH (09:10)
[2017-08-14 16:00] VITALS: BP 125/69
[2017-08-14] MEDS: IBUPROFEN 600 MG TABLET PO PRN (20:29)
[2017-08-14] MEDS: PALIPERIDONE 6 MG ER TABLET PO SCH (20:29)
[2017-08-15] MEDS: FERROUS SULFATE 325 MG EC TABLET PO SCH (06:43)
[2017-08-15 08:35] VITALS: BP 136/74
[2017-08-15] MEDS: TAMSULOSIN HCL 0.4 MG CAPSULE PO SCH (08:46)
[2017-08-15] MEDS: DOCUSATE SODIUM 100 MG CAPSULE PO SCH (08:46)
[2017-08-15] MEDS: CHOLECALCIFEROL (VIT D3) 1,000 UNITS TABLET PO SCH (08:46)
[2017-08-15] MEDS: OMEPRAZOLE 20 MG CAPSULE PO SCH (08:46)
[2017-08-15] MEDS: DIVALPROEX SODIUM 500 MG DR TABLET PO SCH (08:46)
[2017-08-15] MEDS: LISINOPRIL 20 MG TABLET PO SCH (08:46)
[2017-08-15] MEDS ORDERED: FERR-89 PO (12:47)
== END 2017-08-15 14:45 | disposition home or self-care (01) | DRG 885 ==
LOC: B3A 20:26 → EDSTATUS 20:44 → B3A 22:41
PROVIDERS: ADMIT Psychiatry & Neurology Psychiatry; ATTEND Psychiatry & Neurology Psychiatry
DX: F20.0 Paranoid schizophrenia (principal); J44.9 Chronic obstructive pulmonary disease, unspecified; R45.851 Suicidal ideations; R45.850 Homicidal ideations; F32.9 Major depressive disorder, single episode, unspecified; F17.200 Nicotine dependence, unspecified, uncomplicated; I10 Essential (primary) hypertension; K21.9 Gastro-esophageal reflux disease without esophagitis; K59.00 Constipation, unspecified; M19.90 Unspecified osteoarthritis, unspecified site; N40.0 Benign prostatic hyperplasia without lower urinary tract symptoms; D64.9 Anemia, unspecified; Z59.0 Homelessness
CPT/HCPCS: 83036; 83735; 84100; 84439; 84443; 85007

== ENCOUNTER 2017-08-18 21:31 | Inpatient (IN) | payer MEDICARE, MEDICAID ==
[~2017-08-18] VITALS: Ht 193 cm; Wt 133.4 kg
[~2017-08-18 21:31] MED LIST changes: +FERR-89 PO
[2017-08-18 21:54] VITALS: BP 149/87
[2017-08-18] MEDS ORDERED: HALOPERIDOL 5 MG TABLET PO PRN (22:00)
[2017-08-18] MEDS ORDERED: ZOLPIDEM TARTRATE 10 MG TABLET PO PRN (22:00)
[2017-08-18] MEDS ORDERED: LORazepam 2 MG TABLET PO PRN (22:00)
[2017-08-19] MEDS ORDERED: INFLUENZA VIRUS VACCINE QVS 2017-18 (3YR+)/PF 60 MCG/0.5 ML SYRINGE IM ONE (00:30)
[2017-08-19 01:11] VITALS: BP 121/72
[2017-08-19 08:24] VITALS: BP 116/76
[2017-08-19 08:58] LABS: BASOPHILS # (AUTO) 0.04 K/uL (0.00-0.20); BASOPHILS % (AUTO) 0.7 % (0.0-2.0); EOSINOPHILS # (AUTO) 0.19 K/uL (0.00-0.70); EOSINOPHILS % (AUTO) 3.18 % (1.0-6.0); HEMATOCRIT 33.8 % (41-53); HEMOGLOBIN 11.2 g/dL (13.5-17.5); LYMPHOCYTES # (AUTO) 1.8 K/uL (1.0-4.8); LYMPHOCYTES % (AUTO) 30.6 % (22.0-44.0); MEAN CORPUSCULAR HEMOGLOBIN 28.7 pg (26.0-34.0); MEAN CORPUSCULAR HGB CONC 33.3 G/dL (31.0-37.0); MEAN CORPUSCULAR VOLUME 86 fL (80-100); MONOCYTES # (AUTO) 0.7 K/uL (0.1-1.0); NEUTROPHILS # (AUTO) 3.2 K/uL (1.8-7.7); NEUTROPHILS % (AUTO) 53.6 % (40.0-70.0); PLATELET COUNT (AUTO) 126 K/uL (150-450); RED BLOOD CELL COUNT(AUTO) 3.92 MIL/uL (4.50-5.90); RED CELL DISTRIBUTION WIDTH 14.6 % (11.5-14.5); WHITE BLOOD COUNT (AUTO) 5.9 K/uL (4.5-11.0)
[2017-08-19] MEDS ORDERED: LOPERAMIDE HCL 2 MG CAPSULE PO PRN (09:45)
[2017-08-19] MEDS ORDERED: DICLOFENAC SODIUM 1% 100 GM GEL [2GM] TP PRN (09:45)
[2017-08-19] MEDS ORDERED: PETROLATUM,WHITE 71 GM JELLY TP PRN (09:45)
[2017-08-19] MEDS ORDERED: BACITRACIN 28.4 GM OINTMENT TP PRN (09:45)
[2017-08-19] MEDS ORDERED: ACETAMINOPHEN 325 MG TABLET PO PRN (09:45)
[2017-08-19] MEDS ORDERED: CloNIDine HCL 0.1 MG TABLET PO PRN (09:45)
[2017-08-19] MEDS ORDERED: MAGNESIUM HYDROXIDE SUSPENSION 30 ML UDCUP PO PRN (09:45)
[2017-08-19] MEDS ORDERED: BENZOCAINE/MENTHOL LOZENGE MM PRN (09:45)
[2017-08-19] MEDS ORDERED: ONDANSETRON HCL 4 MG TABLET PO PRN (09:45)
[2017-08-19] MEDS ORDERED: IBUPROFEN 600 MG TABLET PO PRN (09:45)
[2017-08-19] MEDS ORDERED: MAG HYDROX/AL HYDROX/SIMETH ES 30 ML SUSPENSION UDCUP PO PRN (09:45)
[2017-08-19] MEDS ORDERED: ALBUTEROL SULFATE HFA 90 MCG/PUFF 8 GM INHALER IH PRN (09:45)
[2017-08-19 16:13] VITALS: BP 124/79
[2017-08-20 00:40] VITALS: BP 142/88
[2017-08-20 08:38] VITALS: BP 131/73
[2017-08-20] MEDS: TAMSULOSIN HCL 0.4 MG CAPSULE PO SCH (09:12)
[2017-08-20] MEDS: OMEPRAZOLE 20 MG CAPSULE PO SCH (09:12)
[2017-08-20] MEDS: LISINOPRIL 20 MG TABLET PO SCH (09:12)
[2017-08-20] MEDS: DOCUSATE SODIUM 100 MG CAPSULE PO SCH (09:12)
[2017-08-20] MEDS ORDERED: MAGNESIUM CITRATE 300 ML ORAL SOLUTION PO ONE (13:30)
[2017-08-20 16:01] VITALS: BP 126/72
[2017-08-20] MEDS: DIVALPROEX SODIUM 500 MG DR TABLET PO SCH (16:13)
[2017-08-20] MEDS: PALIPERIDONE 6 MG ER TABLET PO SCH (20:29)
[2017-08-21 00:11] VITALS: BP 131/72
[2017-08-21] MEDS: DOCUSATE SODIUM 100 MG CAPSULE PO SCH (08:22)
[2017-08-21] MEDS: DIVALPROEX SODIUM 500 MG DR TABLET PO SCH ×2 (08:23→16:05)
[2017-08-21] MEDS: LISINOPRIL 20 MG TABLET PO SCH (08:23)
[2017-08-21] MEDS: TAMSULOSIN HCL 0.4 MG CAPSULE PO SCH (08:23)
[2017-08-21] MEDS: OMEPRAZOLE 20 MG CAPSULE PO SCH (08:23)
[2017-08-21 08:40] LABS: ALANINE AMINOTRANSFERASE 17 U/L (12-78); ALBUMIN 2.9 g/dL (3.4-5.0); ANION GAP 5 mmol/L (8-16); ASPARTATE AMINOTRANSFERASE 11 U/L (15-37); BILIRUBIN,TOTAL 0.3 mg/dL (0.1-1.0); CALCIUM, TOTAL 8.5 mg/dL (8.8-10.5); CARBON DIOXIDE 27 mmol/L (22-29); CHLORIDE 106 mmol/L (98-107); CHOL/HDL RATIO 3.5 (4.2-7.3); CREATININE 1.14 mg/dL (0.60-1.30); GLOMERULAR FILTR. RATE CALC > 60 mL/min (>60); POTASSIUM 4.8 mmol/L (3.5-5.1); SODIUM SERUM 138 mmol/L (136-145); THYROID STIMULATING HORMONE 4.12 uIU/mL (0.36-3.74); TOTAL PROTEIN, SERUM 6.1 g/dL (6.4-8.2); UREA NITROGEN, BLOOD 17 mg/dL (7-18)
[2017-08-21 08:45] VITALS: BP 122/78
[2017-08-21 10:19] LABS: APPEARANCE,URINE CLEAR (CLEAR); GLUCOSE, URINE (UA) NEGATIVE (NEGATIVE); KETONES,URINE NEGATIVE (NEGATIVE); LEUKOCYTE ESTERASE ,URINE NEGATIVE (NEGATIVE); OCCULT BLOOD,URINE NEGATIVE (NEGATIVE); PROTEIN,URINE NEGATIVE (NEGATIVE)
[2017-08-21 10:24] LABS: ADD UA MICROSCOPIC NO
[2017-08-21 16:12] VITALS: BP 108/69
[2017-08-21] MEDS: PALIPERIDONE 6 MG ER TABLET PO SCH (20:24)
[2017-08-22 08:17] VITALS: BP 112/74
[2017-08-22] MEDS: OMEPRAZOLE 20 MG CAPSULE PO SCH (09:18)
[2017-08-22] MEDS: DOCUSATE SODIUM 100 MG CAPSULE PO SCH (09:18)
[2017-08-22] MEDS: LISINOPRIL 20 MG TABLET PO SCH (09:18)
[2017-08-22] MEDS: DIVALPROEX SODIUM 500 MG DR TABLET PO SCH ×2 (09:18→16:01)
[2017-08-22] MEDS: TAMSULOSIN HCL 0.4 MG CAPSULE PO SCH (09:18)
[2017-08-22 12:33] LABS: HEPATITIS Bs ANTIGEN SCREEN P Negative (Negative); HEPATITIS C AB SCREEN <0.1 s/co ratio (0.0-0.9)
[2017-08-22 16:05] VITALS: BP 109/76
[2017-08-22] MEDS ORDERED: INFLUENZA VIRUS VACCINE QVS 2017-18 (3YR+)/PF 60 MCG/0.5 ML SYRINGE IM ONE (19:00)
[2017-08-22] MEDS: PALIPERIDONE 6 MG ER TABLET PO SCH (20:36)
[2017-08-23 01:21] VITALS: BP 111/57
[2017-08-23] MEDS: LEVOTHYROXINE SODIUM 25 MCG TABLET PO SCH (06:58)
[2017-08-23 08:02] VITALS: BP 110/60
[2017-08-23] MEDS: TAMSULOSIN HCL 0.4 MG CAPSULE PO SCH (08:18)
[2017-08-23] MEDS: LISINOPRIL 20 MG TABLET PO SCH (08:18)
[2017-08-23] MEDS: OMEPRAZOLE 20 MG CAPSULE PO SCH (08:18)
[2017-08-23] MEDS: DIVALPROEX SODIUM 500 MG DR TABLET PO SCH ×2 (08:18→16:13)
[2017-08-23] MEDS: DOCUSATE SODIUM 100 MG CAPSULE PO SCH (08:18)
[2017-08-23 16:38] VITALS: BP 119/66
[2017-08-23] MEDS: PALIPERIDONE 6 MG ER TABLET PO SCH (20:10)
[2017-08-24 06:19] VITALS: BP 120/69
[2017-08-24] MEDS: LEVOTHYROXINE SODIUM 25 MCG TABLET PO SCH (06:43)
[2017-08-24 08:31] VITALS: BP 117/60
[2017-08-24] MEDS: OMEPRAZOLE 20 MG CAPSULE PO SCH (08:42)
[2017-08-24] MEDS: DOCUSATE SODIUM 100 MG CAPSULE PO SCH (08:43)
[2017-08-24] MEDS: TAMSULOSIN HCL 0.4 MG CAPSULE PO SCH (08:43)
[2017-08-24] MEDS: LISINOPRIL 20 MG TABLET PO SCH (08:43)
[2017-08-24] MEDS: DIVALPROEX SODIUM 500 MG DR TABLET PO SCH ×2 (08:43→16:34)
[2017-08-24 16:21] VITALS: BP 113/61
[2017-08-24 19:13] VITALS: BP 119/72
[2017-08-24] MEDS: PALIPERIDONE 6 MG ER TABLET PO SCH (20:33)
[2017-08-25 06:29] VITALS: BP 124/58
[2017-08-25] MEDS: LEVOTHYROXINE SODIUM 25 MCG TABLET PO SCH (06:34)
[2017-08-25 08:14] VITALS: BP 116/67
[2017-08-25] MEDS: DIVALPROEX SODIUM 500 MG DR TABLET PO SCH (08:36)
[2017-08-25] MEDS: TAMSULOSIN HCL 0.4 MG CAPSULE PO SCH (08:36)
[2017-08-25] MEDS: DOCUSATE SODIUM 100 MG CAPSULE PO SCH (08:36)
[2017-08-25] MEDS: OMEPRAZOLE 20 MG CAPSULE PO SCH (08:36)
[2017-08-25] MEDS: LISINOPRIL 20 MG TABLET PO SCH (08:36)
[2017-08-25] MEDS ORDERED: LEVO25TA9 PO (11:06)
== END 2017-08-25 13:00 | disposition home or self-care (01) | DRG 885 ==
LOC: B2X 21:49 → EDSTATUS 21:52
PROVIDERS: ADMIT Psychiatry & Neurology Psychiatry; ATTEND Psychiatry & Neurology Psychiatry
DX: F20.0 Paranoid schizophrenia (principal); D69.6 Thrombocytopenia, unspecified; J44.9 Chronic obstructive pulmonary disease, unspecified; Z28.21 Immunization not carried out because of patient refusal; E66.9 Obesity, unspecified; F17.200 Nicotine dependence, unspecified, uncomplicated; I10 Essential (primary) hypertension; K21.9 Gastro-esophageal reflux disease without esophagitis; K59.00 Constipation, unspecified; M19.90 Unspecified osteoarthritis, unspecified site; N40.0 Benign prostatic hyperplasia without lower urinary tract symptoms; M54.5 Low back pain; Z68.35 Body mass index [BMI] 35.0-35.9, adult; Z71.6 Tobacco abuse counseling; E03.9 Hypothyroidism, unspecified
CPT/HCPCS: 80074; 83036; 84439; 84443; 87081

== ENCOUNTER 2017-08-31 14:37 | Inpatient (IN) | payer MEDICARE, MEDICAID ==
[~2017-08-31] VITALS: Ht 193 cm; Wt 132.0 kg
[~2017-08-31 14:37] MED LIST changes: -CHOL100034 PO; -FERR-89 PO; +LEVO25TA9 PO
[2017-08-31] MEDS ORDERED: HALOPERIDOL 5 MG TABLET PO PRN (16:15)
[2017-08-31] MEDS ORDERED: LORazepam 2 MG TABLET PO PRN (16:15)
[2017-08-31] MEDS ORDERED: ZOLPIDEM TARTRATE 10 MG TABLET PO PRN (16:15)
[2017-08-31 16:43] VITALS: BP 127/65
[2017-08-31] MEDS ORDERED: INFLUENZA VIRUS VACCINE QVS 2017-18 (3YR+)/PF 60 MCG/0.5 ML SYRINGE IM ONE (17:00)
[2017-08-31] MEDS ORDERED: -PHARMACY VACCINE NOTE- MISC ONE ×4 (17:00→19:45)
[2017-09-01 02:14] VITALS: BP 125/95
[2017-09-01 08:01] LABS: BASOPHILS # (AUTO) 0.04 K/uL (0.00-0.20); BASOPHILS % (AUTO) 0.6 % (0.0-2.0); EOSINOPHILS # (AUTO) 0.19 K/uL (0.00-0.70); EOSINOPHILS % (AUTO) 2.72 % (1.0-6.0); HEMATOCRIT 35.6 % (41-53); HEMOGLOBIN 11.6 g/dL (13.5-17.5); LYMPHOCYTES # (AUTO) 1.8 K/uL (1.0-4.8); LYMPHOCYTES % (AUTO) 25.5 % (22.0-44.0); MEAN CORPUSCULAR HEMOGLOBIN 28.8 pg (26.0-34.0); MEAN CORPUSCULAR HGB CONC 32.7 G/dL (31.0-37.0); MEAN CORPUSCULAR VOLUME 88 fL (80-100); MONOCYTES # (AUTO) 0.7 K/uL (0.1-1.0); MONOCYTES % (AUTO) 9.8 % (2.0-9.0); NEUTROPHILS # (AUTO) 4.3 K/uL (1.8-7.7); NEUTROPHILS % (AUTO) 61.4 % (40.0-70.0); PLATELET COUNT (AUTO) 147 K/uL (150-450); RED BLOOD CELL COUNT(AUTO) 4.03 MIL/uL (4.50-5.90); RED CELL DISTRIBUTION WIDTH 14.5 % (11.5-14.5); WHITE BLOOD COUNT (AUTO) 6.9 K/uL (4.5-11.0)
[2017-09-01 08:20] VITALS: BP 117/91
[2017-09-01 08:22] LABS: ALANINE AMINOTRANSFERASE 19 U/L (12-78); ALBUMIN 3.1 g/dL (3.4-5.0); ANION GAP 7 mmol/L (8-16); ASPARTATE AMINOTRANSFERASE 17 U/L (15-37); BILIRUBIN,TOTAL 0.4 mg/dL (0.1-1.0); CALCIUM, TOTAL 8.2 mg/dL (8.8-10.5); CARBON DIOXIDE 26 mmol/L (22-29); CHLORIDE 109 mmol/L (98-107); CHOL/HDL RATIO 3.1 (4.2-7.3); CREATININE 1.17 mg/dL (0.60-1.30); GLOMERULAR FILTR. RATE CALC > 60 mL/min (>60); POTASSIUM 4.2 mmol/L (3.5-5.1); SODIUM SERUM 142 mmol/L (136-145); THYROID STIMULATING HORMONE 1.73 uIU/mL (0.36-3.74); TOTAL PROTEIN, SERUM 6.3 g/dL (6.4-8.2); UREA NITROGEN, BLOOD 20 mg/dL (7-18)
[2017-09-01 08:41] LABS: HEMOGLOBIN A1C 5.6 % (4.5-6.2)
[2017-09-01] MEDS ORDERED: ALBUTEROL SULFATE HFA 90 MCG/PUFF 8 GM INHALER IH PRN (10:15)
[2017-09-01] MEDS ORDERED: ACETAMINOPHEN 325 MG TABLET PO PRN (10:15)
[2017-09-01] MEDS ORDERED: CloNIDine HCL 0.1 MG TABLET PO PRN (10:15)
[2017-09-01] MEDS ORDERED: PETROLATUM,WHITE 71 GM JELLY TP PRN (10:15)
[2017-09-01] MEDS ORDERED: BACITRACIN 28.4 GM OINTMENT TP PRN (10:15)
[2017-09-01] MEDS ORDERED: BENZOCAINE/MENTHOL LOZENGE MM PRN (10:15)
[2017-09-01] MEDS ORDERED: MAG HYDROX/AL HYDROX/SIMETH ES 30 ML SUSPENSION UDCUP PO PRN (10:15)
[2017-09-01] MEDS ORDERED: MAGNESIUM HYDROXIDE SUSPENSION 30 ML UDCUP PO PRN (10:15)
[2017-09-01] MEDS ORDERED: ONDANSETRON HCL 4 MG TABLET PO PRN (10:15)
[2017-09-01] MEDS ORDERED: LOPERAMIDE HCL 2 MG CAPSULE PO PRN (10:15)
[2017-09-01 16:18] VITALS: BP 122/65
[2017-09-02 05:47] VITALS: BP 115/67
[2017-09-02] MEDS: OMEPRAZOLE 20 MG CAPSULE PO SCH (08:34)
[2017-09-02] MEDS: DIVALPROEX SODIUM 500 MG DR TABLET PO SCH ×2 (08:34→17:14)
[2017-09-02] MEDS: LISINOPRIL 20 MG TABLET PO SCH (08:34)
[2017-09-02] MEDS: TAMSULOSIN HCL 0.4 MG CAPSULE PO SCH (08:34)
[2017-09-02] MEDS: DOCUSATE SODIUM 100 MG CAPSULE PO SCH (08:34)
[2017-09-02 08:43] VITALS: BP 114/66
[2017-09-02 16:23] VITALS: BP 125/86
[2017-09-02] MEDS: PALIPERIDONE 6 MG ER TABLET PO SCH (20:59)
[2017-09-03 06:03] VITALS: BP 120/92
[2017-09-03 07:16] LABS: HEPATITIS Bs ANTIGEN SCREEN P Negative (Negative); HEPATITIS C AB SCREEN <0.1 s/co ratio (0.0-0.9)
[2017-09-03 07:59] LABS: BASOPHILS # (AUTO) 0.04 K/uL (0.00-0.20); BASOPHILS % (AUTO) 0.7 % (0.0-2.0); EOSINOPHILS # (AUTO) 0.27 K/uL (0.00-0.70); EOSINOPHILS % (AUTO) 4.26 % (1.0-6.0); HEMATOCRIT 34.3 % (41-53); HEMOGLOBIN 11.3 g/dL (13.5-17.5); LYMPHOCYTES # (AUTO) 1.7 K/uL (1.0-4.8); LYMPHOCYTES % (AUTO) 26.3 % (22.0-44.0); MEAN CORPUSCULAR HEMOGLOBIN 28.8 pg (26.0-34.0); MEAN CORPUSCULAR HGB CONC 32.8 G/dL (31.0-37.0); MEAN CORPUSCULAR VOLUME 88 fL (80-100); MONOCYTES # (AUTO) 0.5 K/uL (0.1-1.0); MONOCYTES % (AUTO) 7.6 % (2.0-9.0); NEUTROPHILS # (AUTO) 3.9 K/uL (1.8-7.7); NEUTROPHILS % (AUTO) 61.2 % (40.0-70.0); PLATELET COUNT (AUTO) 152 K/uL (150-450); RED BLOOD CELL COUNT(AUTO) 3.91 MIL/uL (4.50-5.90); RED CELL DISTRIBUTION WIDTH 14.2 % (11.5-14.5); WHITE BLOOD COUNT (AUTO) 6.3 K/uL (4.5-11.0)
[2017-09-03 08:30] LABS: APPEARANCE,URINE CLEAR (CLEAR); GLUCOSE, URINE (UA) NEGATIVE (NEGATIVE); KETONES,URINE NEGATIVE (NEGATIVE); LEUKOCYTE ESTERASE ,URINE NEGATIVE (NEGATIVE); OCCULT BLOOD,URINE NEGATIVE (NEGATIVE); PROTEIN,URINE NEGATIVE (NEGATIVE)
[2017-09-03 08:32] LABS: ADD UA MICROSCOPIC NO
[2017-09-03 08:47] LABS: CHOL/HDL RATIO 3.3 (4.2-7.3)
[2017-09-03] MEDS: LISINOPRIL 20 MG TABLET PO SCH (09:01)
[2017-09-03] MEDS: MULTIVITAMINS WITH MINERALS, THERAPEUTIC TABLET PO SCH (09:01)
[2017-09-03] MEDS: TAMSULOSIN HCL 0.4 MG CAPSULE PO SCH (09:01)
[2017-09-03] MEDS: DOCUSATE SODIUM 100 MG CAPSULE PO SCH (09:01)
[2017-09-03] MEDS: DIVALPROEX SODIUM 500 MG DR TABLET PO SCH ×2 (09:01→17:18)
[2017-09-03] MEDS: OMEPRAZOLE 20 MG CAPSULE PO SCH (09:01)
[2017-09-03 09:20] VITALS: BP 122/84
[2017-09-03 13:23] VITALS: BP 116/78
[2017-09-03] MEDS: IBUPROFEN 600 MG TABLET PO PRN (13:23)
[2017-09-03 16:23] VITALS: BP 104/65
[2017-09-03] MEDS: PALIPERIDONE 6 MG ER TABLET PO SCH (21:09)
[2017-09-04 00:39] VITALS: BP 136/91
[2017-09-04 08:49] VITALS: BP 129/86
[2017-09-04] MEDS: TAMSULOSIN HCL 0.4 MG CAPSULE PO SCH (09:15)
[2017-09-04] MEDS: LISINOPRIL 20 MG TABLET PO SCH (09:15)
[2017-09-04] MEDS: OMEPRAZOLE 20 MG CAPSULE PO SCH (09:15)
[2017-09-04] MEDS: MULTIVITAMINS WITH MINERALS, THERAPEUTIC TABLET PO SCH (09:15)
[2017-09-04] MEDS: DOCUSATE SODIUM 100 MG CAPSULE PO SCH (09:15)
[2017-09-04] MEDS: IBUPROFEN 600 MG TABLET PO PRN (09:16)
[2017-09-04] MEDS: DIVALPROEX SODIUM 500 MG DR TABLET PO SCH ×2 (09:16→16:41)
[2017-09-04 16:02] VITALS: BP 124/69
[2017-09-04] MEDS: PALIPERIDONE 6 MG ER TABLET PO SCH (20:29)
[2017-09-05 01:36] VITALS: BP 125/62
[2017-09-05 08:43] VITALS: BP 129/75
[2017-09-05] MEDS: OMEPRAZOLE 20 MG CAPSULE PO SCH (09:06)
[2017-09-05] MEDS: DIVALPROEX SODIUM 500 MG DR TABLET PO SCH ×2 (09:06→16:40)
[2017-09-05] MEDS: MULTIVITAMINS WITH MINERALS, THERAPEUTIC TABLET PO SCH (09:06)
[2017-09-05] MEDS: LISINOPRIL 20 MG TABLET PO SCH (09:06)
[2017-09-05] MEDS: TAMSULOSIN HCL 0.4 MG CAPSULE PO SCH (09:06)
[2017-09-05] MEDS: DOCUSATE SODIUM 100 MG CAPSULE PO SCH (09:06)
[2017-09-05 16:21] VITALS: BP 117/73
[2017-09-05] MEDS: IBUPROFEN 600 MG TABLET PO PRN (16:26)
[2017-09-05] MEDS: PALIPERIDONE 6 MG ER TABLET PO SCH (20:35)
[2017-09-06 06:24] VITALS: BP 103/63
[2017-09-06 08:41] VITALS: BP 108/67
[2017-09-06] MEDS: DOCUSATE SODIUM 100 MG CAPSULE PO SCH (09:20)
[2017-09-06] MEDS: DIVALPROEX SODIUM 500 MG DR TABLET PO SCH ×2 (09:20→16:36)
[2017-09-06] MEDS: MULTIVITAMINS WITH MINERALS, THERAPEUTIC TABLET PO SCH (09:20)
[2017-09-06] MEDS: OMEPRAZOLE 20 MG CAPSULE PO SCH (09:20)
[2017-09-06] MEDS: TAMSULOSIN HCL 0.4 MG CAPSULE PO SCH (09:20)
[2017-09-06] MEDS: LISINOPRIL 20 MG TABLET PO SCH (09:21)
[2017-09-06] MEDS: IBUPROFEN 600 MG TABLET PO PRN (09:26)
[2017-09-06 16:11] VITALS: BP 127/87
[2017-09-06] MEDS: PALIPERIDONE 6 MG ER TABLET PO SCH (20:39)
[2017-09-07 06:29] VITALS: BP 138/87
[2017-09-07 08:26] VITALS: BP 120/60
[2017-09-07] MEDS: DIVALPROEX SODIUM 500 MG DR TABLET PO SCH ×2 (09:10→16:36)
[2017-09-07] MEDS: DOCUSATE SODIUM 100 MG CAPSULE PO SCH (09:10)
[2017-09-07] MEDS: LISINOPRIL 20 MG TABLET PO SCH (09:10)
[2017-09-07] MEDS: TAMSULOSIN HCL 0.4 MG CAPSULE PO SCH (09:10)
[2017-09-07] MEDS: OMEPRAZOLE 20 MG CAPSULE PO SCH (09:10)
[2017-09-07] MEDS: MULTIVITAMINS WITH MINERALS, THERAPEUTIC TABLET PO SCH (09:10)
[2017-09-07 16:14] VITALS: BP 120/84
[2017-09-07] MEDS: PALIPERIDONE 6 MG ER TABLET PO SCH (20:37)
[2017-09-08 01:47] VITALS: BP 110/62
[2017-09-08] MEDS ORDERED: MULT-723 PO (08:26)
[2017-09-08 08:35] LABS: APPEARANCE,URINE CLEAR (CLEAR); GLUCOSE, URINE (UA) NEGATIVE (NEGATIVE); KETONES,URINE NEGATIVE (NEGATIVE); LEUKOCYTE ESTERASE ,URINE NEGATIVE (NEGATIVE); OCCULT BLOOD,URINE NEGATIVE (NEGATIVE); PH,URINE 6.5 (5.0-8.0); PROTEIN,URINE NEGATIVE (NEGATIVE)
[2017-09-08 08:42] LABS: RBC,URINE None Seen /HPF (0-2); SQUAMOUS EPITHELIAL CELL,UR Rare /LPF (None Seen); WBC,URINE None Seen /HPF (0-5)
[2017-09-08] MEDS: TAMSULOSIN HCL 0.4 MG CAPSULE PO SCH (08:46)
[2017-09-08] MEDS: LISINOPRIL 20 MG TABLET PO SCH (08:46)
[2017-09-08] MEDS: MULTIVITAMINS WITH MINERALS, THERAPEUTIC TABLET PO SCH (08:46)
[2017-09-08] MEDS: OMEPRAZOLE 20 MG CAPSULE PO SCH (08:46)
[2017-09-08] MEDS: DOCUSATE SODIUM 100 MG CAPSULE PO SCH (08:47)
[2017-09-08] MEDS: DIVALPROEX SODIUM 500 MG DR TABLET PO SCH (08:47)
[2017-09-08 09:30] VITALS: BP 114/63
== END 2017-09-08 10:10 | disposition home or self-care (01) | DRG 885 ==
LOC: B2X 16:07
PROVIDERS: ADMIT Psychiatry & Neurology Psychiatry; ATTEND Psychiatry & Neurology Psychiatry
DX: F20.0 Paranoid schizophrenia (principal); J44.9 Chronic obstructive pulmonary disease, unspecified; E66.9 Obesity, unspecified; F17.200 Nicotine dependence, unspecified, uncomplicated; I10 Essential (primary) hypertension; K21.9 Gastro-esophageal reflux disease without esophagitis; K59.00 Constipation, unspecified; M19.90 Unspecified osteoarthritis, unspecified site; N40.1 Benign prostatic hyperplasia with lower urinary tract symptoms; Z68.35 Body mass index [BMI] 35.0-35.9, adult; Z71.6 Tobacco abuse counseling; Z28.21 Immunization not carried out because of patient refusal
CPT/HCPCS: 80074; 80307; 82306; 83036; 84439; 84443; 86592; 87081; 87389

== ENCOUNTER 2017-09-24 16:10 | Inpatient (IN) | payer MEDICARE, MEDICAID ==
[~2017-09-24] VITALS: Ht 193 cm; Wt 131.6 kg
[~2017-09-24 16:10] MED LIST changes: -LEVO25TA9 PO; +MULT-723 PO
[2017-09-24] MEDS ORDERED: ZOLPIDEM TARTRATE 10 MG TABLET PO PRN (17:00)
[2017-09-24] MEDS ORDERED: HALOPERIDOL 5 MG TABLET PO PRN (17:00)
[2017-09-24] MEDS ORDERED: LORazepam 2 MG TABLET PO PRN (17:00)
[2017-09-24 17:39] VITALS: BP 143/99
[2017-09-24] MEDS ORDERED: INFLUENZA VIRUS VACCINE QVS 2017-18 (3YR+)/PF 60 MCG/0.5 ML SYRINGE IM ONE (17:45)
[2017-09-24] MEDS ORDERED: -PHARMACY VACCINE NOTE- MISC ONE ×2 (17:45)
[2017-09-24 18:21] VITALS: BP 139/89
[2017-09-25 00:50] VITALS: BP 108/67
[2017-09-25] MEDS ORDERED: PETROLATUM,WHITE 71 GM JELLY TP PRN (08:00)
[2017-09-25] MEDS ORDERED: LOPERAMIDE HCL 2 MG CAPSULE PO PRN (08:00)
[2017-09-25] MEDS ORDERED: BACITRACIN 28.4 GM OINTMENT TP PRN (08:00)
[2017-09-25] MEDS ORDERED: ALBUTEROL SULFATE HFA 90 MCG/PUFF 8 GM INHALER IH PRN (08:00)
[2017-09-25] MEDS ORDERED: ONDANSETRON HCL 4 MG TABLET PO PRN (08:00)
[2017-09-25] MEDS ORDERED: MAG HYDROX/AL HYDROX/SIMETH ES 30 ML SUSPENSION UDCUP PO PRN (08:00)
[2017-09-25] MEDS ORDERED: CloNIDine HCL 0.1 MG TABLET PO PRN (08:00)
[2017-09-25] MEDS ORDERED: MAGNESIUM HYDROXIDE SUSPENSION 30 ML UDCUP PO PRN (08:00)
[2017-09-25] MEDS ORDERED: BENZOCAINE/MENTHOL LOZENGE MM PRN (08:00)
[2017-09-25] MEDS ORDERED: ACETAMINOPHEN 325 MG TABLET PO PRN (08:00)
[2017-09-25 08:19] LABS: BASOPHILS % (AUTO) 0.9 % (0.0-2.0); EOSINOPHILS % (AUTO) 3.5 % (1.0-6.0); HEMOGLOBIN 11.5 g/dL (13.5-17.5); LYMPHOCYTES # (AUTO) 1.7 K/uL (1.0-4.8); LYMPHOCYTES % (AUTO) 33.3 % (22.0-44.0); MEAN CORPUSCULAR HEMOGLOBIN 29.3 pg (26.0-34.0); MEAN CORPUSCULAR HGB CONC 33.8 G/dL (31.0-37.0); MEAN CORPUSCULAR VOLUME 87 fL (80-100); MONOCYTES # (AUTO) 0.5 K/uL (0.1-1.0); NEUTROPHILS # (AUTO) 2.8 K/uL (1.8-7.7); NEUTROPHILS % (AUTO) 53.3 % (40.0-70.0); PLATELET COUNT (AUTO) 172 K/uL (150-450); RED BLOOD CELL COUNT(AUTO) 3.92 MIL/uL (4.50-5.90); RED CELL DISTRIBUTION WIDTH 14.3 % (11.5-14.5); WHITE BLOOD COUNT (AUTO) 5.2 K/uL (4.5-11.0)
[2017-09-25 08:24] LABS: HEMOGLOBIN A1C 5.6 % (4.5-6.2)
[2017-09-25 08:32] VITALS: BP 135/77
[2017-09-25] MEDS: DIVALPROEX SODIUM 500 MG DR TABLET PO SCH ×2 (08:36→16:46)
[2017-09-25] MEDS: MULTIVITAMINS WITH MINERALS, THERAPEUTIC TABLET PO SCH (08:36)
[2017-09-25] MEDS: TAMSULOSIN HCL 0.4 MG CAPSULE PO SCH (08:36)
[2017-09-25] MEDS: OMEPRAZOLE 20 MG CAPSULE PO SCH (08:36)
[2017-09-25] MEDS: LISINOPRIL 20 MG TABLET PO SCH (08:36)
[2017-09-25] MEDS: DOCUSATE SODIUM 100 MG CAPSULE PO SCH (08:37)
[2017-09-25] MEDS: IBUPROFEN 600 MG TABLET PO PRN (08:43)
[2017-09-25 08:53] LABS: ALANINE AMINOTRANSFERASE 23 U/L (12-78); ANION GAP 7 mmol/L (8-16); ASPARTATE AMINOTRANSFERASE 18 U/L (15-37); BILIRUBIN,TOTAL 0.5 mg/dL (0.1-1.0); CALCIUM, TOTAL 8.5 mg/dL (8.8-10.5); CARBON DIOXIDE 25 mmol/L (22-29); CHLORIDE 108 mmol/L (98-107); CHOL/HDL RATIO 3.2 (4.2-7.3); CREATININE 1.15 mg/dL (0.60-1.30); GLOMERULAR FILTR. RATE CALC > 60 mL/min (>60); POTASSIUM 3.5 mmol/L (3.5-5.1); SODIUM SERUM 140 mmol/L (136-145); THYROID STIMULATING HORMONE 1.49 uIU/mL (0.36-3.74); TOTAL PROTEIN, SERUM 6.4 g/dL (6.4-8.2); UREA NITROGEN, BLOOD 23 mg/dL (7-18)
[2017-09-25 16:14] VITALS: BP 122/77
[2017-09-25] MEDS: PALIPERIDONE 6 MG ER TABLET PO SCH (20:16)
[2017-09-26 02:15] VITALS: BP 114/76
[2017-09-26 08:40] VITALS: BP 132/79
[2017-09-26] MEDS: DIVALPROEX SODIUM 500 MG DR TABLET PO SCH ×2 (08:59→16:50)
[2017-09-26] MEDS: TAMSULOSIN HCL 0.4 MG CAPSULE PO SCH (08:59)
[2017-09-26] MEDS: LISINOPRIL 20 MG TABLET PO SCH (08:59)
[2017-09-26] MEDS: MULTIVITAMINS WITH MINERALS, THERAPEUTIC TABLET PO SCH (08:59)
[2017-09-26] MEDS: OMEPRAZOLE 20 MG CAPSULE PO SCH (08:59)
[2017-09-26] MEDS: DOCUSATE SODIUM 100 MG CAPSULE PO SCH (08:59)
[2017-09-26 16:10] VITALS: BP 139/96
[2017-09-26] MEDS: PALIPERIDONE 6 MG ER TABLET PO SCH (21:10)
[2017-09-27 00:22] VITALS: BP 138/70
[2017-09-27 08:25] VITALS: BP 140/70
[2017-09-27] MEDS: DOCUSATE SODIUM 100 MG CAPSULE PO SCH (08:27)
[2017-09-27] MEDS: DIVALPROEX SODIUM 500 MG DR TABLET PO SCH ×2 (08:27→16:47)
[2017-09-27] MEDS: MULTIVITAMINS WITH MINERALS, THERAPEUTIC TABLET PO SCH (08:27)
[2017-09-27] MEDS: TAMSULOSIN HCL 0.4 MG CAPSULE PO SCH (08:27)
[2017-09-27] MEDS: LISINOPRIL 20 MG TABLET PO SCH (08:27)
[2017-09-27] MEDS: OMEPRAZOLE 20 MG CAPSULE PO SCH (08:27)
[2017-09-27 10:55] VITALS: BP 132/72
[2017-09-27] MEDS: IBUPROFEN 600 MG TABLET PO PRN (10:55)
[2017-09-27 16:46] VITALS: BP 141/65
[2017-09-27] MEDS: PALIPERIDONE 6 MG ER TABLET PO SCH (20:32)
[2017-09-28 08:12] VITALS: BP 134/82
[2017-09-28] MEDS: OMEPRAZOLE 20 MG CAPSULE PO SCH (08:15)
[2017-09-28] MEDS: DOCUSATE SODIUM 100 MG CAPSULE PO SCH (08:15)
[2017-09-28] MEDS: TAMSULOSIN HCL 0.4 MG CAPSULE PO SCH (08:15)
[2017-09-28] MEDS: MULTIVITAMINS WITH MINERALS, THERAPEUTIC TABLET PO SCH (08:15)
[2017-09-28] MEDS: DIVALPROEX SODIUM 500 MG DR TABLET PO SCH ×2 (08:15→16:38)
[2017-09-28] MEDS: LISINOPRIL 20 MG TABLET PO SCH (08:15)
[2017-09-28 16:07] VITALS: BP 113/63
[2017-09-28] MEDS: IBUPROFEN 600 MG TABLET PO PRN (16:21)
[2017-09-28] MEDS: PALIPERIDONE 6 MG ER TABLET PO SCH (20:34)
[2017-09-29 06:33] VITALS: BP 134/65
[2017-09-29 08:25] VITALS: BP 143/65
[2017-09-29] MEDS: DOCUSATE SODIUM 100 MG CAPSULE PO SCH (08:28)
[2017-09-29] MEDS: LISINOPRIL 20 MG TABLET PO SCH (08:28)
[2017-09-29] MEDS: TAMSULOSIN HCL 0.4 MG CAPSULE PO SCH (08:28)
[2017-09-29] MEDS: OMEPRAZOLE 20 MG CAPSULE PO SCH (08:28)
[2017-09-29] MEDS: DIVALPROEX SODIUM 500 MG DR TABLET PO SCH ×2 (08:28→16:37)
[2017-09-29] MEDS: MULTIVITAMINS WITH MINERALS, THERAPEUTIC TABLET PO SCH (08:28)
[2017-09-29 16:03] VITALS: BP 137/69
[2017-09-29] MEDS: PALIPERIDONE 6 MG ER TABLET PO SCH (20:38)
[2017-09-30 06:30] VITALS: BP 142/75
[2017-09-30] MEDS: TAMSULOSIN HCL 0.4 MG CAPSULE PO SCH (08:46)
[2017-09-30] MEDS: MULTIVITAMINS WITH MINERALS, THERAPEUTIC TABLET PO SCH (08:47)
[2017-09-30] MEDS: LISINOPRIL 20 MG TABLET PO SCH (08:47)
[2017-09-30] MEDS: DIVALPROEX SODIUM 500 MG DR TABLET PO SCH ×2 (08:47→16:32)
[2017-09-30] MEDS: DOCUSATE SODIUM 100 MG CAPSULE PO SCH (08:47)
[2017-09-30] MEDS: OMEPRAZOLE 20 MG CAPSULE PO SCH (08:47)
[2017-09-30 08:49] VITALS: BP 131/81
[2017-09-30 16:05] VITALS: BP 138/86
[2017-09-30] MEDS: IBUPROFEN 600 MG TABLET PO PRN (16:25)
[2017-09-30] MEDS: PALIPERIDONE 6 MG ER TABLET PO SCH (20:50)
[2017-10-01 06:30] VITALS: BP 145/89
[2017-10-01 08:33] VITALS: BP 145/74
[2017-10-01] MEDS: MULTIVITAMINS WITH MINERALS, THERAPEUTIC TABLET PO SCH (08:57)
[2017-10-01] MEDS: TAMSULOSIN HCL 0.4 MG CAPSULE PO SCH (08:57)
[2017-10-01] MEDS: OMEPRAZOLE 20 MG CAPSULE PO SCH (08:57)
[2017-10-01] MEDS: DOCUSATE SODIUM 100 MG CAPSULE PO SCH (08:57)
[2017-10-01] MEDS: DIVALPROEX SODIUM 500 MG DR TABLET PO SCH ×2 (08:57→16:37)
[2017-10-01] MEDS: LISINOPRIL 20 MG TABLET PO SCH (08:57)
[2017-10-01 16:03] VITALS: BP 140/87
[2017-10-01] MEDS: PALIPERIDONE 6 MG ER TABLET PO SCH (20:34)
[2017-10-02 04:44] VITALS: BP 146/94
[2017-10-02] MEDS: MULTIVITAMINS WITH MINERALS, THERAPEUTIC TABLET PO SCH (08:38)
[2017-10-02] MEDS: DIVALPROEX SODIUM 500 MG DR TABLET PO SCH ×2 (08:38→16:33)
[2017-10-02] MEDS: DOCUSATE SODIUM 100 MG CAPSULE PO SCH (08:38)
[2017-10-02] MEDS: TAMSULOSIN HCL 0.4 MG CAPSULE PO SCH (08:38)
[2017-10-02] MEDS: OMEPRAZOLE 20 MG CAPSULE PO SCH (08:38)
[2017-10-02] MEDS: LISINOPRIL 20 MG TABLET PO SCH (08:38)
[2017-10-02 08:59] VITALS: BP 148/88
[2017-10-02 16:06] VITALS: BP 129/69
[2017-10-02] MEDS: PALIPERIDONE 6 MG ER TABLET PO SCH (20:33)
[2017-10-03 03:41] VITALS: BP 126/70
[2017-10-03 08:24] VITALS: BP 130/71
[2017-10-03] MEDS: DOCUSATE SODIUM 100 MG CAPSULE PO SCH (08:59)
[2017-10-03] MEDS: TAMSULOSIN HCL 0.4 MG CAPSULE PO SCH (08:59)
[2017-10-03] MEDS: MULTIVITAMINS WITH MINERALS, THERAPEUTIC TABLET PO SCH (08:59)
[2017-10-03] MEDS: LISINOPRIL 20 MG TABLET PO SCH (08:59)
[2017-10-03] MEDS: OMEPRAZOLE 20 MG CAPSULE PO SCH (09:00)
[2017-10-03] MEDS: DIVALPROEX SODIUM 500 MG DR TABLET PO SCH ×2 (09:00→16:12)
[2017-10-03 16:06] VITALS: BP 131/63
[2017-10-03] MEDS: PALIPERIDONE 6 MG ER TABLET PO SCH (20:12)
[2017-10-04 00:30] VITALS: BP 131/82
[2017-10-04 08:20] VITALS: BP 117/67
[2017-10-04] MEDS: DOCUSATE SODIUM 100 MG CAPSULE PO SCH (09:29)
[2017-10-04] MEDS: LISINOPRIL 20 MG TABLET PO SCH (09:29)
[2017-10-04] MEDS: DIVALPROEX SODIUM 500 MG DR TABLET PO SCH (09:30)
[2017-10-04] MEDS: MULTIVITAMINS WITH MINERALS, THERAPEUTIC TABLET PO SCH (09:30)
[2017-10-04] MEDS: OMEPRAZOLE 20 MG CAPSULE PO SCH (09:30)
[2017-10-04] MEDS: TAMSULOSIN HCL 0.4 MG CAPSULE PO SCH (09:31)
== END 2017-10-04 12:00 | disposition home or self-care (01) | DRG 885 ==
LOC: EDSTATUS 16:37 → B2X 16:45
PROVIDERS: ADMIT Psychiatry & Neurology Psychiatry; ATTEND Psychiatry & Neurology Psychiatry
DX: F20.0 Paranoid schizophrenia (principal); J44.9 Chronic obstructive pulmonary disease, unspecified; R45.851 Suicidal ideations; Z59.0 Homelessness; E55.9 Vitamin D deficiency, unspecified; E66.9 Obesity, unspecified; G47.00 Insomnia, unspecified; I10 Essential (primary) hypertension; K21.9 Gastro-esophageal reflux disease without esophagitis; K59.00 Constipation, unspecified; M19.90 Unspecified osteoarthritis, unspecified site; N40.0 Benign prostatic hyperplasia without lower urinary tract symptoms; D64.9 Anemia, unspecified; F17.200 Nicotine dependence, unspecified, uncomplicated; Z68.35 Body mass index [BMI] 35.0-35.9, adult; Z79.899 Other long term (current) drug therapy
CPT/HCPCS: 83036; 84439; 84443; 87081

== ENCOUNTER 2017-11-29 15:33 | Inpatient (IN) | payer MEDICARE, MEDICAID ==
[~2017-11-29] VITALS: Ht 193 cm; Wt 129.3 kg
[~2017-11-29 15:33] MED LIST changes: -MULT-723 PO
[2017-11-29] MEDS ORDERED: HALOPERIDOL 5 MG TABLET PO PRN (17:00)
[2017-11-29] MEDS ORDERED: LORazepam 2 MG TABLET PO PRN (17:00)
[2017-11-29] MEDS ORDERED: ZOLPIDEM TARTRATE 10 MG TABLET PO PRN (17:00)
[2017-11-29 18:00] VITALS: BP 143/89
[2017-11-29] MEDS ORDERED: -PHARMACY VACCINE NOTE- MISC ONE (18:30)
[2017-11-29] MEDS ORDERED: INFLUENZA VIRUS VACCINE QVS 2017-18 (3YR+)/PF 60 MCG/0.5 ML SYRINGE IM ONE (18:30)
[2017-11-29] MEDS: DIVALPROEX SODIUM 500 MG DR TABLET PO SCH (20:35)
[2017-11-29] MEDS: PALIPERIDONE 6 MG ER TABLET PO SCH (20:36)
[2017-11-30 01:00] VITALS: BP 140/96
[2017-11-30] MEDS: OMEPRAZOLE 20 MG CAPSULE PO SCH (06:57)
[2017-11-30 08:01] VITALS: BP 122/70
[2017-11-30 08:10] LABS: BASOPHILS % (AUTO) 0.8 % (0.0-2.0); EOSINOPHILS % (AUTO) 4.9 % (1.0-6.0); HEMATOCRIT 35.5 % (41-53); HEMOGLOBIN 11.5 g/dL (13.5-17.5); LYMPHOCYTES # (AUTO) 1.9 K/uL (1.0-4.8); LYMPHOCYTES % (AUTO) 30.5 % (22.0-44.0); MEAN CORPUSCULAR HEMOGLOBIN 27.4 pg (26.0-34.0); MEAN CORPUSCULAR HGB CONC 32.5 G/dL (31.0-37.0); MEAN CORPUSCULAR VOLUME 84 fL (80-100); MONOCYTES # (AUTO) 0.5 K/uL (0.1-1.0); MONOCYTES % (AUTO) 8.3 % (2.0-9.0); NEUTROPHILS # (AUTO) 3.4 K/uL (1.8-7.7); NEUTROPHILS % (AUTO) 55.5 % (40.0-70.0); PLATELET COUNT (AUTO) 164 K/uL (150-450)
[2017-11-30] MEDS: DOCUSATE SODIUM 100 MG CAPSULE PO SCH (08:16)
[2017-11-30] MEDS: LISINOPRIL 20 MG TABLET PO SCH (08:16)
[2017-11-30 08:30] LABS: ALANINE AMINOTRANSFERASE 19 U/L (12-78); ALBUMIN 2.7 g/dL (3.4-5.0); ALKALINE PHOSPHATASE 79 U/L (46-116); ANION GAP 7 mmol/L (8-16); ASPARTATE AMINOTRANSFERASE 16 U/L (15-37); BILIRUBIN,TOTAL 0.4 mg/dL (0.1-1.0); CALCIUM, TOTAL 8.5 mg/dL (8.8-10.5); CARBON DIOXIDE 27 mmol/L (22-29); CHLORIDE 108 mmol/L (98-107); CHOL/HDL RATIO 3.1 (4.2-7.3); CHOLESTEROL 120 mg/dL (131-200); FREE T4 (FREE THYROXINE) 1.24 ng/dL (0.76-1.46); GLOMERULAR FILTR. RATE CALC > 60 mL/min (>60); GLUCOSE,RANDOM 89 mg/dL (70-110); HDL CHOLESTEROL 39 mg/dL (40-60); LDL CHOL (CALC.) 73 mg/dL (0-130); POTASSIUM 4.3 mmol/L (3.5-5.1); SODIUM SERUM 142 mmol/L (136-145); THYROID STIMULATING HORMONE 3.08 uIU/mL (0.36-3.74); TRIGLYCERIDES 39 mg/dL (15-150); UREA NITROGEN, BLOOD 18 mg/dL (7-18)
[2017-11-30] MEDS ORDERED: BACITRACIN 28.4 GM OINTMENT TP PRN (09:45)
[2017-11-30] MEDS ORDERED: PETROLATUM,WHITE 71 GM JELLY TP PRN (09:45)
[2017-11-30] MEDS ORDERED: ONDANSETRON HCL 4 MG TABLET PO PRN (09:45)
[2017-11-30] MEDS ORDERED: CloNIDine HCL 0.1 MG TABLET PO PRN (09:45)
[2017-11-30] MEDS ORDERED: BENZOCAINE/MENTHOL LOZENGE MM PRN (09:45)
[2017-11-30] MEDS ORDERED: MAG HYDROX/AL HYDROX/SIMETH ES 30 ML SUSPENSION UDCUP PO PRN (09:45)
[2017-11-30] MEDS ORDERED: MAGNESIUM HYDROXIDE SUSPENSION 30 ML UDCUP PO PRN (09:45)
[2017-11-30] MEDS ORDERED: LOPERAMIDE HCL 2 MG CAPSULE PO PRN (09:45)
[2017-11-30] MEDS ORDERED: ACETAMINOPHEN 325 MG TABLET PO PRN (09:45)
[2017-11-30] MEDS ORDERED: ALBUTEROL SULFATE HFA 90 MCG/PUFF 8 GM INHALER IH PRN (09:45)
[2017-11-30 16:05] VITALS: BP 133/80
[2017-11-30] MEDS: TAMSULOSIN HCL 0.4 MG CAPSULE PO SCH (20:33)
[2017-11-30] MEDS: PALIPERIDONE 6 MG ER TABLET PO SCH (20:33)
[2017-11-30] MEDS: DIVALPROEX SODIUM 500 MG DR TABLET PO SCH (20:33)
[2017-12-01 01:09] VITALS: BP 130/83
[2017-12-01] MEDS: OMEPRAZOLE 20 MG CAPSULE PO SCH (06:25)
[2017-12-01] MEDS: DOCUSATE SODIUM 100 MG CAPSULE PO SCH (08:34)
[2017-12-01] MEDS: LISINOPRIL 20 MG TABLET PO SCH (08:34)
[2017-12-01] MEDS: IBUPROFEN 600 MG TABLET PO PRN (16:03)
[2017-12-01 16:04] VITALS: BP 140/75
[2017-12-01] MEDS: DIVALPROEX SODIUM 500 MG DR TABLET PO SCH (20:33)
[2017-12-01] MEDS: PALIPERIDONE 6 MG ER TABLET PO SCH (20:33)
[2017-12-01] MEDS: TAMSULOSIN HCL 0.4 MG CAPSULE PO SCH (20:33)
[2017-12-02] MEDS: OMEPRAZOLE 20 MG CAPSULE PO SCH (06:39)
[2017-12-02 08:13] VITALS: BP 140/61
[2017-12-02] MEDS: LISINOPRIL 20 MG TABLET PO SCH (08:41)
[2017-12-02] MEDS: DOCUSATE SODIUM 100 MG CAPSULE PO SCH (08:41)
[2017-12-02 16:31] VITALS: BP 137/79
[2017-12-02] MEDS: TAMSULOSIN HCL 0.4 MG CAPSULE PO SCH (20:38)
[2017-12-02] MEDS: DIVALPROEX SODIUM 500 MG DR TABLET PO SCH (20:38)
[2017-12-02] MEDS: PALIPERIDONE 6 MG ER TABLET PO SCH (20:39)
[2017-12-03 06:00] VITALS: BP 138/75
[2017-12-03] MEDS: OMEPRAZOLE 20 MG CAPSULE PO SCH (06:30)
[2017-12-03] MEDS: DOCUSATE SODIUM 100 MG CAPSULE PO SCH (08:23)
[2017-12-03] MEDS: LISINOPRIL 20 MG TABLET PO SCH (08:23)
[2017-12-03 08:33] VITALS: BP 143/72
[2017-12-03 17:00] VITALS: BP 142/78
[2017-12-03 19:00] VITALS: BP 163/112
[2017-12-03 20:10] VITALS: BP 128/64
[2017-12-03] MEDS: DIVALPROEX SODIUM 500 MG DR TABLET PO SCH (21:00)
[2017-12-03] MEDS: TAMSULOSIN HCL 0.4 MG CAPSULE PO SCH (21:00)
[2017-12-03] MEDS: PALIPERIDONE 6 MG ER TABLET PO SCH (21:00)
[2017-12-04] MEDS: OMEPRAZOLE 20 MG CAPSULE PO SCH (06:47)
[2017-12-04] MEDS: DOCUSATE SODIUM 100 MG CAPSULE PO SCH (08:28)
[2017-12-04] MEDS: LISINOPRIL 20 MG TABLET PO SCH (08:29)
[2017-12-04 08:32] VITALS: BP 134/65
[2017-12-04 08:33] VITALS: BP 136/63
[2017-12-04] MEDS: IBUPROFEN 600 MG TABLET PO PRN (08:33)
[2017-12-04 16:16] VITALS: BP 135/81
[2017-12-04] MEDS: DIVALPROEX SODIUM 500 MG DR TABLET PO SCH (20:52)
[2017-12-04] MEDS: TAMSULOSIN HCL 0.4 MG CAPSULE PO SCH (20:53)
[2017-12-04] MEDS: PALIPERIDONE 6 MG ER TABLET PO SCH (20:53)
[2017-12-05 00:34] VITALS: BP 132/81
[2017-12-05] MEDS: OMEPRAZOLE 20 MG CAPSULE PO SCH (06:35)
[2017-12-05 08:03] VITALS: BP 137/80
[2017-12-05 08:20] VITALS: BP 140/86
[2017-12-05] MEDS: LISINOPRIL 20 MG TABLET PO SCH (08:25)
[2017-12-05] MEDS: DOCUSATE SODIUM 100 MG CAPSULE PO SCH (08:25)
[2017-12-05] MEDS: IBUPROFEN 600 MG TABLET PO PRN (08:26)
[2017-12-05 16:03] VITALS: BP 142/101
[2017-12-05] MEDS: TAMSULOSIN HCL 0.4 MG CAPSULE PO SCH (20:46)
[2017-12-05] MEDS: DIVALPROEX SODIUM 500 MG DR TABLET PO SCH (20:46)
[2017-12-05] MEDS: PALIPERIDONE 6 MG ER TABLET PO SCH (20:46)
[2017-12-06] MEDS: OMEPRAZOLE 20 MG CAPSULE PO SCH (06:30)
[2017-12-06] MEDS: LISINOPRIL 20 MG TABLET PO SCH (09:00)
[2017-12-06] MEDS: DOCUSATE SODIUM 100 MG CAPSULE PO SCH (09:00)
[2017-12-06 16:27] VITALS: BP 140/88
[2017-12-06] MEDS: IBUPROFEN 600 MG TABLET PO PRN (16:27)
[2017-12-06] MEDS: TAMSULOSIN HCL 0.4 MG CAPSULE PO SCH (20:37)
[2017-12-06] MEDS: PALIPERIDONE 6 MG ER TABLET PO SCH (21:00)
[2017-12-06] MEDS: DIVALPROEX SODIUM 500 MG DR TABLET PO SCH (21:00)
[2017-12-07 06:26] VITALS: BP 130/74
[2017-12-07] MEDS: OMEPRAZOLE 20 MG CAPSULE PO SCH (06:30)
[2017-12-07 08:30] VITALS: BP 126/74
[2017-12-07] MEDS: LISINOPRIL 20 MG TABLET PO SCH (08:50)
[2017-12-07] MEDS: DOCUSATE SODIUM 100 MG CAPSULE PO SCH (08:50)
[2017-12-07 16:10] VITALS: BP 137/85
[2017-12-07] MEDS: TAMSULOSIN HCL 0.4 MG CAPSULE PO SCH (20:53)
[2017-12-07] MEDS: PALIPERIDONE 6 MG ER TABLET PO SCH (21:00)
[2017-12-07] MEDS: DIVALPROEX SODIUM 500 MG DR TABLET PO SCH (21:00)
[2017-12-08] MEDS: OMEPRAZOLE 20 MG CAPSULE PO SCH (06:30)
[2017-12-08 08:15] VITALS: BP 137/79
[2017-12-08] MEDS: LISINOPRIL 20 MG TABLET PO SCH (08:17)
[2017-12-08] MEDS: DOCUSATE SODIUM 100 MG CAPSULE PO SCH (08:17)
[2017-12-08 09:30] VITALS: BP 134/75
[2017-12-08] MEDS: IBUPROFEN 600 MG TABLET PO PRN ×2 (09:31→19:31)
[2017-12-08 16:07] VITALS: BP 143/89
[2017-12-08 19:32] VITALS: BP 144/78
[2017-12-08] MEDS: PALIPERIDONE 6 MG ER TABLET PO SCH (20:29)
[2017-12-08] MEDS: TAMSULOSIN HCL 0.4 MG CAPSULE PO SCH (20:29)
[2017-12-08] MEDS: DIVALPROEX SODIUM 500 MG DR TABLET PO SCH (20:29)
[2017-12-09] MEDS: OMEPRAZOLE 20 MG CAPSULE PO SCH (06:35)
[2017-12-09] MEDS: DOCUSATE SODIUM 100 MG CAPSULE PO SCH (08:18)
[2017-12-09] MEDS: LISINOPRIL 20 MG TABLET PO SCH (08:18)
[2017-12-09 08:25] VITALS: BP 150/77
[2017-12-09] MEDS: IBUPROFEN 600 MG TABLET PO PRN (09:08)
[2017-12-09 10:08] VITALS: BP 138/81
[2017-12-09] MEDS: PALIPERIDONE 6 MG ER TABLET PO SCH (20:38)
[2017-12-09] MEDS: TAMSULOSIN HCL 0.4 MG CAPSULE PO SCH (20:38)
[2017-12-09] MEDS: DIVALPROEX SODIUM 500 MG DR TABLET PO SCH (20:38)
[2017-12-10 05:10] VITALS: BP 152/67
[2017-12-10] MEDS: OMEPRAZOLE 20 MG CAPSULE PO SCH (06:17)
[2017-12-10] MEDS: LISINOPRIL 20 MG TABLET PO SCH (08:01)
[2017-12-10] MEDS: DOCUSATE SODIUM 100 MG CAPSULE PO SCH (08:02)
[2017-12-10 08:23] VITALS: BP 124/64
[2017-12-10] MEDS: TAMSULOSIN HCL 0.4 MG CAPSULE PO SCH (20:32)
[2017-12-10] MEDS: DIVALPROEX SODIUM 500 MG DR TABLET PO SCH (20:39)
[2017-12-10] MEDS: PALIPERIDONE 6 MG ER TABLET PO SCH (20:39)
[2017-12-11] MEDS: OMEPRAZOLE 20 MG CAPSULE PO SCH (06:23)
[2017-12-11 08:18] VITALS: BP 146/87
[2017-12-11] MEDS: LISINOPRIL 20 MG TABLET PO SCH (08:18)
[2017-12-11] MEDS: DOCUSATE SODIUM 100 MG CAPSULE PO SCH (08:18)
[2017-12-11] MEDS: IBUPROFEN 600 MG TABLET PO PRN (15:52)
[2017-12-11 16:00] VITALS: BP 119/60
[2017-12-11] MEDS: TAMSULOSIN HCL 0.4 MG CAPSULE PO SCH (20:43)
[2017-12-11] MEDS: DIVALPROEX SODIUM 500 MG DR TABLET PO SCH (21:00)
[2017-12-11] MEDS: PALIPERIDONE 6 MG ER TABLET PO SCH (21:00)
[2017-12-12] MEDS: OMEPRAZOLE 20 MG CAPSULE PO SCH (05:34)
[2017-12-12 08:15] VITALS: BP 150/89
[2017-12-12] MEDS: LISINOPRIL 20 MG TABLET PO SCH (08:25)
[2017-12-12] MEDS: DOCUSATE SODIUM 100 MG CAPSULE PO SCH (08:25)
[2017-12-12 10:00] VITALS: BP 139/79
[2017-12-12 16:04] VITALS: BP 135/74
[2017-12-12] MEDS: IBUPROFEN 600 MG TABLET PO PRN (16:43)
[2017-12-12] MEDS: TAMSULOSIN HCL 0.4 MG CAPSULE PO SCH (20:40)
[2017-12-12] MEDS: DIVALPROEX SODIUM 500 MG DR TABLET PO SCH (20:46)
[2017-12-12] MEDS: PALIPERIDONE 6 MG ER TABLET PO SCH (20:47)
[2017-12-13] MEDS: OMEPRAZOLE 20 MG CAPSULE PO SCH (06:56)
[2017-12-13 10:10] VITALS: BP 149/73
[2017-12-13] MEDS: DOCUSATE SODIUM 100 MG CAPSULE PO SCH (10:10)
[2017-12-13] MEDS: LISINOPRIL 20 MG TABLET PO SCH (10:10)
[2017-12-13 16:11] VITALS: BP 130/60
[2017-12-13] MEDS: PALIPERIDONE 6 MG ER TABLET PO SCH (20:37)
[2017-12-13] MEDS: DIVALPROEX SODIUM 500 MG DR TABLET PO SCH (20:37)
[2017-12-13] MEDS: TAMSULOSIN HCL 0.4 MG CAPSULE PO SCH (20:37)
[2017-12-13] MEDS ORDERED: HALOPERIDOL LACTATE 5 MG/ML VIAL IM SCH (21:00)
[2017-12-13] MEDS ORDERED: HALOPERIDOL LACTATE 5 MG/ML VIAL IM PRN (21:00)
[2017-12-14] MEDS: OMEPRAZOLE 20 MG CAPSULE PO SCH (06:34)
[2017-12-14 09:05] VITALS: BP 119/73
[2017-12-14] MEDS: LISINOPRIL 20 MG TABLET PO SCH (09:06)
[2017-12-14] MEDS: DOCUSATE SODIUM 100 MG CAPSULE PO SCH (09:06)
[2017-12-14 16:11] VITALS: BP 131/67
[2017-12-14] MEDS: PALIPERIDONE 6 MG ER TABLET PO SCH (20:12)
[2017-12-14] MEDS: TAMSULOSIN HCL 0.4 MG CAPSULE PO SCH (20:12)
[2017-12-14] MEDS: DIVALPROEX SODIUM 500 MG DR TABLET PO SCH (20:12)
[2017-12-15] MEDS: OMEPRAZOLE 20 MG CAPSULE PO SCH (06:30)
[2017-12-15] MEDS: LISINOPRIL 20 MG TABLET PO SCH (08:21)
[2017-12-15] MEDS: DOCUSATE SODIUM 100 MG CAPSULE PO SCH (08:21)
[2017-12-15 08:28] VITALS: BP 154/74
[2017-12-15 10:00] VITALS: BP 119/68
[2017-12-15 16:06] VITALS: BP 138/70
[2017-12-15] MEDS: PALIPERIDONE 6 MG ER TABLET PO SCH (20:34)
[2017-12-15] MEDS: DIVALPROEX SODIUM 500 MG DR TABLET PO SCH (20:34)
[2017-12-15] MEDS: TAMSULOSIN HCL 0.4 MG CAPSULE PO SCH (20:34)
[2017-12-16] MEDS: OMEPRAZOLE 20 MG CAPSULE PO SCH (06:30)
[2017-12-16] MEDS: FERROUS SULFATE 325 MG EC TABLET PO SCH ×2 (07:00→17:00)
[2017-12-16 08:31] VITALS: BP 103/75
[2017-12-16] MEDS: DOCUSATE SODIUM 100 MG CAPSULE PO SCH (08:51)
[2017-12-16] MEDS: LISINOPRIL 20 MG TABLET PO SCH (08:56)
[2017-12-16 17:18] VITALS: BP 130/88
[2017-12-16] MEDS: TAMSULOSIN HCL 0.4 MG CAPSULE PO SCH (20:24)
[2017-12-16] MEDS: PALIPERIDONE 6 MG ER TABLET PO SCH (20:24)
[2017-12-16] MEDS: DIVALPROEX SODIUM 500 MG DR TABLET PO SCH (20:24)
[2017-12-17] MEDS: OMEPRAZOLE 20 MG CAPSULE PO SCH (06:30)
[2017-12-17] MEDS: FERROUS SULFATE 325 MG EC TABLET PO SCH ×2 (07:00→17:00)
[2017-12-17 08:09] VITALS: BP 108/74
[2017-12-17 09:00] VITALS: BP 121/65
[2017-12-17] MEDS: LISINOPRIL 20 MG TABLET PO SCH (09:02)
[2017-12-17] MEDS: DOCUSATE SODIUM 100 MG CAPSULE PO SCH (09:02)
[2017-12-17 16:40] VITALS: BP 118/72
[2017-12-17] MEDS: DIVALPROEX SODIUM 500 MG DR TABLET PO SCH (20:19)
[2017-12-17] MEDS: TAMSULOSIN HCL 0.4 MG CAPSULE PO SCH (20:19)
[2017-12-17] MEDS: PALIPERIDONE 6 MG ER TABLET PO SCH (20:19)
[2017-12-18] MEDS: OMEPRAZOLE 20 MG CAPSULE PO SCH (06:30)
[2017-12-18] MEDS: FERROUS SULFATE 325 MG EC TABLET PO SCH ×2 (06:44→16:10)
[2017-12-18 08:00] VITALS: BP 125/79
[2017-12-18] MEDS: LISINOPRIL 20 MG TABLET PO SCH (08:02)
[2017-12-18] MEDS: DOCUSATE SODIUM 100 MG CAPSULE PO SCH (08:02)
[2017-12-18] MEDS: IBUPROFEN 600 MG TABLET PO PRN (10:57)
[2017-12-18 16:16] VITALS: BP 137/83
[2017-12-18] MEDS: DIVALPROEX SODIUM 500 MG DR TABLET PO SCH (21:04)
[2017-12-18] MEDS: TAMSULOSIN HCL 0.4 MG CAPSULE PO SCH (21:04)
[2017-12-18] MEDS: PALIPERIDONE 6 MG ER TABLET PO SCH (21:04)
[2017-12-19] MEDS: OMEPRAZOLE 20 MG CAPSULE PO SCH (06:30)
[2017-12-19] MEDS: FERROUS SULFATE 325 MG EC TABLET PO SCH ×2 (07:00→16:57)
[2017-12-19] MEDS: LISINOPRIL 20 MG TABLET PO SCH (08:31)
[2017-12-19] MEDS: DOCUSATE SODIUM 100 MG CAPSULE PO SCH (08:31)
[2017-12-19 16:05] VITALS: BP 135/77
[2017-12-19] MEDS: IBUPROFEN 600 MG TABLET PO PRN (16:45)
[2017-12-19] MEDS: PALIPERIDONE 6 MG ER TABLET PO SCH (20:28)
[2017-12-19] MEDS: DIVALPROEX SODIUM 500 MG DR TABLET PO SCH (20:29)
[2017-12-19] MEDS: TAMSULOSIN HCL 0.4 MG CAPSULE PO SCH (20:29)
[2017-12-20 03:52] VITALS: BP 141/87
[2017-12-20] MEDS: OMEPRAZOLE 20 MG CAPSULE PO SCH (06:30)
[2017-12-20] MEDS: FERROUS SULFATE 325 MG EC TABLET PO SCH ×2 (07:00→17:00)
[2017-12-20 08:04] VITALS: BP 118/76
[2017-12-20] MEDS: DOCUSATE SODIUM 100 MG CAPSULE PO SCH (08:09)
[2017-12-20] MEDS: LISINOPRIL 20 MG TABLET PO SCH (08:10)
[2017-12-20 16:08] VITALS: BP 133/84
[2017-12-20 18:45] VITALS: BP 142/85
[2017-12-20] MEDS: PALIPERIDONE 6 MG ER TABLET PO SCH (20:59)
[2017-12-20] MEDS: DIVALPROEX SODIUM 500 MG DR TABLET PO SCH (20:59)
[2017-12-20] MEDS: TAMSULOSIN HCL 0.4 MG CAPSULE PO SCH (21:20)
[2017-12-21] MEDS: OMEPRAZOLE 20 MG CAPSULE PO SCH (07:00)
[2017-12-21] MEDS: FERROUS SULFATE 325 MG EC TABLET PO SCH ×2 (07:08→18:15)
[2017-12-21 08:05] VITALS: BP 147/86
[2017-12-21] MEDS: DOCUSATE SODIUM 100 MG CAPSULE PO SCH (09:03)
[2017-12-21] MEDS: LISINOPRIL 20 MG TABLET PO SCH (09:03)
[2017-12-21 17:00] VITALS: BP 155/83
[2017-12-21] MEDS: DIVALPROEX SODIUM 500 MG DR TABLET PO SCH (21:00)
[2017-12-21] MEDS: PALIPERIDONE 6 MG ER TABLET PO SCH (21:00)
[2017-12-21] MEDS: TAMSULOSIN HCL 0.4 MG CAPSULE PO SCH (21:08)
[2017-12-22] MEDS: IBUPROFEN 600 MG TABLET PO PRN (04:58)
[2017-12-22 05:00] VITALS: BP 125/100
[2017-12-22] MEDS: OMEPRAZOLE 20 MG CAPSULE PO SCH ×2 (07:00→07:19)
[2017-12-22] MEDS: FERROUS SULFATE 325 MG EC TABLET PO SCH ×3 (07:19→17:30)
[2017-12-22] MEDS: DOCUSATE SODIUM 100 MG CAPSULE PO SCH (08:33)
[2017-12-22] MEDS: LISINOPRIL 20 MG TABLET PO SCH (08:34)
[2017-12-22 17:06] VITALS: BP 106/71
[2017-12-22] MEDS: TAMSULOSIN HCL 0.4 MG CAPSULE PO SCH (21:00)
[2017-12-22] MEDS: PALIPERIDONE 6 MG ER TABLET PO SCH (21:00)
[2017-12-22] MEDS: DIVALPROEX SODIUM 500 MG DR TABLET PO SCH (21:00)
[2017-12-23 04:27] VITALS: BP 135/83
[2017-12-23] MEDS: OMEPRAZOLE 20 MG CAPSULE PO SCH (07:00)
[2017-12-23] MEDS: FERROUS SULFATE 325 MG EC TABLET PO SCH ×2 (07:00→16:57)
[2017-12-23] MEDS: DOCUSATE SODIUM 100 MG CAPSULE PO SCH (08:17)
[2017-12-23] MEDS: LISINOPRIL 20 MG TABLET PO SCH (08:17)
[2017-12-23] MEDS: IBUPROFEN 600 MG TABLET PO PRN (20:34)
[2017-12-23] MEDS: DIVALPROEX SODIUM 500 MG DR TABLET PO SCH (20:35)
[2017-12-23] MEDS: PALIPERIDONE 6 MG ER TABLET PO SCH (20:35)
[2017-12-23] MEDS: TAMSULOSIN HCL 0.4 MG CAPSULE PO SCH (20:35)
[2017-12-24] MEDS: OMEPRAZOLE 20 MG CAPSULE PO SCH (06:45)
[2017-12-24] MEDS: FERROUS SULFATE 325 MG EC TABLET PO SCH ×2 (06:45→16:57)
[2017-12-24 09:00] VITALS: BP 145/59
[2017-12-24] MEDS: DOCUSATE SODIUM 100 MG CAPSULE PO SCH (09:49)
[2017-12-24] MEDS: LISINOPRIL 20 MG TABLET PO SCH (09:49)
[2017-12-24] MEDS: TAMSULOSIN HCL 0.4 MG CAPSULE PO SCH (20:39)
[2017-12-24] MEDS: DIVALPROEX SODIUM 500 MG DR TABLET PO SCH (20:39)
[2017-12-24] MEDS: PALIPERIDONE 6 MG ER TABLET PO SCH (20:39)
[2017-12-25] MEDS: FERROUS SULFATE 325 MG EC TABLET PO SCH ×2 (06:51→17:30)
[2017-12-25] MEDS: OMEPRAZOLE 20 MG CAPSULE PO SCH (06:51)
[2017-12-25] MEDS: DOCUSATE SODIUM 100 MG CAPSULE PO SCH (08:55)
[2017-12-25] MEDS: LISINOPRIL 20 MG TABLET PO SCH (08:55)
[2017-12-25] MEDS: TAMSULOSIN HCL 0.4 MG CAPSULE PO SCH (21:00)
[2017-12-25] MEDS: DIVALPROEX SODIUM 500 MG DR TABLET PO SCH (21:00)
[2017-12-25] MEDS: PALIPERIDONE 6 MG ER TABLET PO SCH (21:00)
[2017-12-26] MEDS: FERROUS SULFATE 325 MG EC TABLET PO SCH (06:50)
[2017-12-26] MEDS: OMEPRAZOLE 20 MG CAPSULE PO SCH (06:50)
[2017-12-26] MEDS: DOCUSATE SODIUM 100 MG CAPSULE PO SCH (08:48)
[2017-12-26] MEDS: LISINOPRIL 20 MG TABLET PO SCH (08:48)
[2017-12-26] MEDS ORDERED: FERR-89 PO (09:35)
== END 2017-12-26 14:10 | disposition home or self-care (01) | DRG 885 ==
LOC: B2X 16:30 → 3EX 12-20 18:00
PROVIDERS: ADMIT Psychiatry & Neurology Psychiatry; ATTEND Psychiatry & Neurology Psychiatry
DX: F20.0 Paranoid schizophrenia (principal); J44.9 Chronic obstructive pulmonary disease, unspecified; Z59.0 Homelessness; E55.9 Vitamin D deficiency, unspecified; Z28.21 Immunization not carried out because of patient refusal; E66.9 Obesity, unspecified; F17.200 Nicotine dependence, unspecified, uncomplicated; G47.00 Insomnia, unspecified; I10 Essential (primary) hypertension; K21.9 Gastro-esophageal reflux disease without esophagitis; K59.00 Constipation, unspecified; M19.90 Unspecified osteoarthritis, unspecified site; Z91.14 Patient's other noncompliance with medication regimen; Z91.19 Patient's noncompliance with other medical treatment and regimen; M25.569 Pain in unspecified knee; Z56.0 Unemployment, unspecified; F10.21 Alcohol dependence, in remission; Z71.6 Tobacco abuse counseling; D64.9 Anemia, unspecified
CPT/HCPCS: 83036; 84439; 84443; 87081

== ENCOUNTER 2018-01-01 18:01 | Inpatient (IN) | payer MEDICARE, MEDICAID ==
[~2018-01-01] VITALS: Ht 193 cm; Wt 132.4 kg
[~2018-01-01 18:01] MED LIST changes: +FERR-89 PO
[2018-01-01] MEDS ORDERED: HALOPERIDOL 5 MG TABLET PO PRN (19:30)
[2018-01-01] MEDS ORDERED: LORazepam 2 MG TABLET PO PRN (19:30)
[2018-01-01] MEDS ORDERED: ZOLPIDEM TARTRATE 10 MG TABLET PO PRN (19:30)
[2018-01-01 19:59] VITALS: BP 151/83
[2018-01-01] MEDS ORDERED: -PHARMACY VACCINE NOTE- MISC ONE (20:15)
[2018-01-01 22:42] VITALS: BP_SYST 127; BP_SYST 167; BP_DIAS 80; BP_DIAS 91
[2018-01-02 03:33] VITALS: BP 140/80
[2018-01-02] MEDS ORDERED: MAGNESIUM HYDROXIDE SUSPENSION 30 ML UDCUP PO PRN (08:15)
[2018-01-02] MEDS ORDERED: PETROLATUM,WHITE 71 GM JELLY TP PRN (08:15)
[2018-01-02] MEDS ORDERED: BACITRACIN 28.4 GM OINTMENT TP PRN (08:15)
[2018-01-02] MEDS ORDERED: ACETAMINOPHEN 325 MG TABLET PO PRN (08:15)
[2018-01-02] MEDS ORDERED: BENZOCAINE/MENTHOL LOZENGE MM PRN (08:15)
[2018-01-02] MEDS ORDERED: LOPERAMIDE HCL 2 MG CAPSULE PO PRN (08:15)
[2018-01-02] MEDS ORDERED: IBUPROFEN 600 MG TABLET PO PRN (08:15)
[2018-01-02] MEDS ORDERED: MAG HYDROX/AL HYDROX/SIMETH ES 30 ML SUSPENSION UDCUP PO PRN (08:15)
[2018-01-02] MEDS ORDERED: CloNIDine HCL 0.1 MG TABLET PO PRN (08:15)
[2018-01-02] MEDS ORDERED: ONDANSETRON HCL 4 MG TABLET PO PRN (08:15)
[2018-01-02] MEDS ORDERED: ALBUTEROL SULFATE HFA 90 MCG/PUFF 8 GM INHALER IH PRN (08:15)
[2018-01-02] MEDS: DOCUSATE SODIUM 100 MG CAPSULE PO SCH (09:00)
[2018-01-02] MEDS: OMEPRAZOLE 20 MG CAPSULE PO SCH (09:00)
[2018-01-02] MEDS: LISINOPRIL 20 MG TABLET PO SCH (09:00)
[2018-01-02 17:00] VITALS: BP 136/92
[2018-01-02] MEDS ORDERED: QUEtiapine FUMARATE 100 MG TABLET PO PRN (17:15)
[2018-01-02] MEDS: TAMSULOSIN HCL 0.4 MG CAPSULE PO SCH (20:13)
[2018-01-02] MEDS ORDERED: QUEtiapine FUMARATE 200 MG TABLET PO SCH (21:00)
[2018-01-03] MEDS: DOCUSATE SODIUM 100 MG CAPSULE PO SCH (09:00)
[2018-01-03] MEDS: OMEPRAZOLE 20 MG CAPSULE PO SCH (09:00)
[2018-01-03] MEDS: LISINOPRIL 20 MG TABLET PO SCH (09:00)
[2018-01-03 19:36] VITALS: BP 140/71
[2018-01-03] MEDS: TAMSULOSIN HCL 0.4 MG CAPSULE PO SCH (20:08)
[2018-01-03] MEDS ORDERED: QUEtiapine FUMARATE 200 MG TABLET PO SCH (21:00)
[2018-01-04] MEDS: OMEPRAZOLE 20 MG CAPSULE PO SCH (09:00)
[2018-01-04] MEDS: LISINOPRIL 20 MG TABLET PO SCH (09:13)
[2018-01-04] MEDS: DOCUSATE SODIUM 100 MG CAPSULE PO SCH (09:14)
[2018-01-04] MEDS ORDERED: QUEtiapine FUMARATE 200 MG TABLET PO ONE (12:45)
[2018-01-04 17:00] VITALS: BP 117/72
[2018-01-04] MEDS: TAMSULOSIN HCL 0.4 MG CAPSULE PO SCH (20:19)
[2018-01-04] MEDS ORDERED: QUEtiapine FUMARATE 200 MG TABLET PO SCH (21:00)
[2018-01-05 03:04] VITALS: BP 117/65
[2018-01-05] MEDS: DOCUSATE SODIUM 100 MG CAPSULE PO SCH (09:00)
[2018-01-05] MEDS: OMEPRAZOLE 20 MG CAPSULE PO SCH (09:00)
[2018-01-05] MEDS: LISINOPRIL 20 MG TABLET PO SCH (09:00)
[2018-01-05] MEDS ORDERED: QUEtiapine FUMARATE 300 MG TABLET PO ONE ×2 (10:45→15:30)
[2018-01-05] MEDS ORDERED: QUET200T29 PO (15:30)
[2018-01-05 16:42] VITALS: BP 134/82
[2018-01-05] MEDS: TAMSULOSIN HCL 0.4 MG CAPSULE PO SCH (20:10)
[2018-01-05] MEDS ORDERED: QUEtiapine FUMARATE 200 MG TABLET PO SCH (21:00)
[2018-01-06] MEDS: OMEPRAZOLE 20 MG CAPSULE PO SCH (09:00)
[2018-01-06] MEDS: DOCUSATE SODIUM 100 MG CAPSULE PO SCH (09:04)
[2018-01-06] MEDS: LISINOPRIL 20 MG TABLET PO SCH (09:04)
[2018-01-06 09:51] VITALS: BP 138/90
[2018-01-06] MEDS ORDERED: GABAPENTIN 300 MG CAPSULE PO PRN (14:30)
[2018-01-06] MEDS ORDERED: QUEtiapine FUMARATE 100 MG TABLET PO PRN (14:45)
[2018-01-06] MEDS: TAMSULOSIN HCL 0.4 MG CAPSULE PO SCH (20:12)
[2018-01-06] MEDS ORDERED: QUEtiapine FUMARATE 300 MG TABLET PO SCH (21:00)
[2018-01-07] MEDS: OMEPRAZOLE 20 MG CAPSULE PO SCH (09:00)
[2018-01-07] MEDS: LISINOPRIL 20 MG TABLET PO SCH (09:17)
[2018-01-07] MEDS: DOCUSATE SODIUM 100 MG CAPSULE PO SCH (09:17)
[2018-01-07] MEDS ORDERED: QUET300T2 PO (17:01)
== END 2018-01-07 17:45 | disposition home or self-care (01) | DRG 885 ==
LOC: 3EX 19:20
PROVIDERS: ADMIT Psychiatry & Neurology Psychiatry; ATTEND Psychiatry & Neurology Psychiatry
DX: F20.0 Paranoid schizophrenia (principal); R45.851 Suicidal ideations; J44.9 Chronic obstructive pulmonary disease, unspecified; Z59.0 Homelessness; Z91.14 Patient's other noncompliance with medication regimen; E55.9 Vitamin D deficiency, unspecified; E66.9 Obesity, unspecified; I10 Essential (primary) hypertension; D64.9 Anemia, unspecified; F17.200 Nicotine dependence, unspecified, uncomplicated; G47.00 Insomnia, unspecified; M25.569 Pain in unspecified knee; K21.9 Gastro-esophageal reflux disease without esophagitis; K59.00 Constipation, unspecified; M19.90 Unspecified osteoarthritis, unspecified site; N40.0 Benign prostatic hyperplasia without lower urinary tract symptoms; Z68.35 Body mass index [BMI] 35.0-35.9, adult; Z91.19 Patient's noncompliance with other medical treatment and regimen; Z71.6 Tobacco abuse counseling; Z79.899 Other long term (current) drug therapy
CPT/HCPCS: 87081

== ENCOUNTER 2018-02-21 20:30 | Inpatient (IN) | payer MEDICARE, MEDICAID ==
[~2018-02-21] VITALS: Ht 175.3 cm; Wt 133.4 kg
[~2018-02-21 20:30] MED LIST changes: -DIVA500T35 PO; +DIVA500T52 PO; -FERR-89 PO; +NALT50TA6 PO
[2018-02-21] MEDS ORDERED: LORazepam 1 MG TABLET PO PRN (21:00)
[2018-02-21] MEDS: DIVALPROEX SODIUM 500 MG ER TABLET PO SCH (21:00)
[2018-02-21] MEDS ORDERED: OLANZapine 5 MG RAPDIS TABLET PO PRN (21:00)
[2018-02-21] MEDS ORDERED: ZOLPIDEM TARTRATE 10 MG TABLET PO PRN (21:00)
[2018-02-21] MEDS: PALIPERIDONE 6 MG ER TABLET PO SCH (21:00)
[2018-02-21 22:00] VITALS: BP 140/90
[2018-02-21] MEDS ORDERED: PNEUMOCOCCAL VACCINE POLYVALENT 0.5 ML VIAL [PPSV23] IM ONE (23:45)
[2018-02-22 02:00] VITALS: BP 140/75
[2018-02-22] MEDS: OMEPRAZOLE 20 MG CAPSULE PO SCH (07:02)
[2018-02-22 08:11] LABS: BASOPHILS % (AUTO) 0.9 % (0.0-2.0); EOSINOPHILS % (AUTO) 3.1 % (1.0-6.0); HEMATOCRIT 37.4 % (41-53); HEMOGLOBIN 12.5 g/dL (13.5-17.5); LYMPHOCYTES # (AUTO) 1.6 K/uL (1.0-4.8); LYMPHOCYTES % (AUTO) 25.9 % (22.0-44.0); MEAN CORPUSCULAR HEMOGLOBIN 28.2 pg (26.0-34.0); MEAN CORPUSCULAR HGB CONC 33.4 G/dL (31.0-37.0); MEAN CORPUSCULAR VOLUME 84 fL (80-100); MONOCYTES # (AUTO) 0.7 K/uL (0.1-1.0); MONOCYTES % (AUTO) 10.9 % (2.0-9.0); NEUTROPHILS # (AUTO) 3.8 K/uL (1.8-7.7); NEUTROPHILS % (AUTO) 59.2 % (40.0-70.0); PLATELET COUNT (AUTO) 176 K/uL (150-450); RED BLOOD CELL COUNT(AUTO) 4.43 MIL/uL (4.50-5.90)
[2018-02-22] MEDS: NALTREXONE HCL 50 MG TABLET PO SCH (08:21)
[2018-02-22] MEDS: LISINOPRIL 20 MG TABLET PO SCH (08:21)
[2018-02-22 08:25] VITALS: BP 120/71
[2018-02-22 08:46] LABS: ALANINE AMINOTRANSFERASE 21 U/L (12-78); ALKALINE PHOSPHATASE 105 U/L (46-116); ANION GAP 12 mmol/L (8-16); ASPARTATE AMINOTRANSFERASE 19 U/L (15-37); BILIRUBIN,TOTAL 0.2 mg/dL (0.1-1.0); CALCIUM, TOTAL 8.4 mg/dL (8.8-10.5); CARBON DIOXIDE 24 mmol/L (22-29); CHLORIDE 107 mmol/L (98-107); CHOL/HDL RATIO 3.2 (4.2-7.3); CHOLESTEROL 132 mg/dL (131-200); CREATININE 1.15 mg/dL (0.60-1.30); FREE T4 (FREE THYROXINE) 1.02 ng/dL (0.76-1.46); GLOMERULAR FILTR. RATE CALC > 60 mL/min (>60); GLUCOSE,RANDOM 105 mg/dL (70-110); HDL CHOLESTEROL 41 mg/dL (40-60); LDL CHOL (CALC.) 79 mg/dL (0-130); POTASSIUM 3.9 mmol/L (3.5-5.1); SODIUM SERUM 143 mmol/L (136-145); THYROID STIMULATING HORMONE 2.18 uIU/mL (0.36-3.74); TOTAL PROTEIN, SERUM 6.5 g/dL (6.4-8.2); TRIGLYCERIDES 61 mg/dL (15-150); UREA NITROGEN, BLOOD 22 mg/dL (7-18)
[2018-02-22] MEDS ORDERED: IBUPROFEN 600 MG TABLET PO PRN (10:15)
[2018-02-22] MEDS ORDERED: CloNIDine HCL 0.1 MG TABLET PO PRN (10:15)
[2018-02-22] MEDS ORDERED: PETROLATUM,WHITE 71 GM JELLY TP PRN (10:15)
[2018-02-22] MEDS ORDERED: ALBUTEROL SULFATE HFA 90 MCG/PUFF 8 GM INHALER IH PRN (10:15)
[2018-02-22] MEDS ORDERED: BACITRACIN 28.4 GM OINTMENT TP PRN (10:15)
[2018-02-22] MEDS ORDERED: MAG HYDROX/AL HYDROX/SIMETH ES 30 ML SUSPENSION UDCUP PO PRN (10:15)
[2018-02-22] MEDS ORDERED: BENZOCAINE/MENTHOL LOZENGE MM PRN (10:15)
[2018-02-22] MEDS ORDERED: ACETAMINOPHEN 325 MG TABLET PO PRN (10:15)
[2018-02-22] MEDS ORDERED: MAGNESIUM HYDROXIDE SUSPENSION 30 ML UDCUP PO PRN (10:15)
[2018-02-22] MEDS ORDERED: LOPERAMIDE HCL 2 MG CAPSULE PO PRN ×2 (10:15→11:45)
[2018-02-22] MEDS ORDERED: ONDANSETRON HCL 4 MG TABLET PO PRN (10:15)
[2018-02-22 11:10] LABS: HEMOGLOBIN A1C 5.6 % (4.5-6.2)
[2018-02-22] MEDS ORDERED: GuaiFENesin/D-METHORPHAN [SUGAR-FREE] 200-20MG/10 ML SYRUP UDCUP PO PRN (11:45)
[2018-02-22] MEDS ORDERED: HydrOXYzine PAMOATE 50 MG CAPSULE PO PRN (11:45)
[2018-02-22 19:00] VITALS: BP 145/91
[2018-02-22] MEDS: THIAMINE HCL 100 MG TABLET PO SCH (19:04)
[2018-02-22] MEDS ORDERED: ASPIRIN 81 MG CHEWABLE TABLET PO ONE (19:45)
[2018-02-22 20:01] VITALS: BP 138/81
[2018-02-22] MEDS: TAMSULOSIN HCL 0.4 MG CAPSULE PO SCH (20:37)
[2018-02-22] MEDS: PALIPERIDONE 6 MG ER TABLET PO SCH (20:37)
[2018-02-22] MEDS: DIVALPROEX SODIUM 500 MG ER TABLET PO SCH (20:37)
[2018-02-23 02:14] VITALS: BP 150/108
[2018-02-23 06:19] VITALS: BP 142/86
[2018-02-23] MEDS: OMEPRAZOLE 20 MG CAPSULE PO SCH (06:30)
[2018-02-23] MEDS: MULTIVITAMINS WITH MINERALS, THERAPEUTIC TABLET PO SCH (08:28)
[2018-02-23] MEDS: THIAMINE HCL 100 MG TABLET PO SCH ×2 (08:28→17:06)
[2018-02-23] MEDS: NALTREXONE HCL 50 MG TABLET PO SCH (08:28)
[2018-02-23] MEDS: LISINOPRIL 20 MG TABLET PO SCH (08:28)
[2018-02-23] MEDS: ASPIRIN 81 MG CHEWABLE TABLET PO SCH (08:28)
[2018-02-23] MEDS: FOLIC ACID 1 MG TABLET PO SCH (08:28)
[2018-02-23 08:29] VITALS: BP 140/70
[2018-02-23] MEDS ORDERED: PALIPERIDONE 3 MG ER TABLET PO PRN (11:00)
[2018-02-23 14:04] VITALS: BP 136/76
[2018-02-23 16:05] VITALS: BP 149/78
[2018-02-23] MEDS: TAMSULOSIN HCL 0.4 MG CAPSULE PO SCH (20:35)
[2018-02-23] MEDS: DIVALPROEX SODIUM 500 MG ER TABLET PO SCH (20:43)
[2018-02-23] MEDS: PALIPERIDONE 6 MG ER TABLET PO SCH (20:43)
[2018-02-24 03:45] VITALS: BP 136/82
[2018-02-24] MEDS: OMEPRAZOLE 20 MG CAPSULE PO SCH (06:30)
[2018-02-24] MEDS: LISINOPRIL 20 MG TABLET PO SCH (08:22)
[2018-02-24] MEDS: THIAMINE HCL 100 MG TABLET PO SCH ×2 (08:22→16:36)
[2018-02-24] MEDS: FOLIC ACID 1 MG TABLET PO SCH (08:22)
[2018-02-24] MEDS: MULTIVITAMINS WITH MINERALS, THERAPEUTIC TABLET PO SCH (08:22)
[2018-02-24] MEDS: NALTREXONE HCL 50 MG TABLET PO SCH (08:22)
[2018-02-24] MEDS: ASPIRIN 81 MG CHEWABLE TABLET PO SCH (08:23)
[2018-02-24 08:38] VITALS: BP 137/79
[2018-02-24] MEDS: MUPIROCIN CALCIUM 2% 22 GM OINTMENT TP SCH (16:36)
[2018-02-24] MEDS: TAMSULOSIN HCL 0.4 MG CAPSULE PO SCH (20:45)
[2018-02-24] MEDS: DIVALPROEX SODIUM 500 MG ER TABLET PO SCH (20:50)
[2018-02-24] MEDS: PALIPERIDONE 6 MG ER TABLET PO SCH (20:50)
[2018-02-25] MEDS: OMEPRAZOLE 20 MG CAPSULE PO SCH (06:41)
[2018-02-25 07:03] VITALS: BP 125/63
[2018-02-25 08:14] VITALS: BP 130/77
[2018-02-25] MEDS: MULTIVITAMINS WITH MINERALS, THERAPEUTIC TABLET PO SCH (08:28)
[2018-02-25] MEDS: ASPIRIN 81 MG CHEWABLE TABLET PO SCH (08:28)
[2018-02-25] MEDS: FOLIC ACID 1 MG TABLET PO SCH (08:28)
[2018-02-25] MEDS: NALTREXONE HCL 50 MG TABLET PO SCH (08:28)
[2018-02-25] MEDS: LISINOPRIL 20 MG TABLET PO SCH (08:28)
[2018-02-25] MEDS: THIAMINE HCL 100 MG TABLET PO SCH ×2 (08:28→16:28)
[2018-02-25] MEDS: MUPIROCIN CALCIUM 2% 22 GM OINTMENT TP SCH ×2 (08:29→16:29)
[2018-02-25] MEDS: TAMSULOSIN HCL 0.4 MG CAPSULE PO SCH (20:44)
[2018-02-25] MEDS: DIVALPROEX SODIUM 500 MG ER TABLET PO SCH (20:44)
[2018-02-25] MEDS: PALIPERIDONE 6 MG ER TABLET PO SCH (20:45)
[2018-02-26] MEDS: OMEPRAZOLE 20 MG CAPSULE PO SCH (06:30)
[2018-02-26 07:25] VITALS: BP 137/69
[2018-02-26] MEDS: LISINOPRIL 20 MG TABLET PO SCH (08:28)
[2018-02-26] MEDS: MULTIVITAMINS WITH MINERALS, THERAPEUTIC TABLET PO SCH (08:28)
[2018-02-26] MEDS: FOLIC ACID 1 MG TABLET PO SCH (08:28)
[2018-02-26] MEDS: ASPIRIN 81 MG CHEWABLE TABLET PO SCH (08:28)
[2018-02-26] MEDS: THIAMINE HCL 100 MG TABLET PO SCH ×2 (08:28→16:20)
[2018-02-26] MEDS: NALTREXONE HCL 50 MG TABLET PO SCH (08:28)
[2018-02-26] MEDS: MUPIROCIN CALCIUM 2% 22 GM OINTMENT TP SCH ×2 (08:29→16:23)
[2018-02-26 08:43] VITALS: BP 125/72
[2018-02-26 16:40] VITALS: BP 135/72
[2018-02-26] MEDS: TAMSULOSIN HCL 0.4 MG CAPSULE PO SCH (20:59)
[2018-02-26] MEDS: DIVALPROEX SODIUM 500 MG ER TABLET PO SCH (21:00)
[2018-02-26] MEDS: PALIPERIDONE 6 MG ER TABLET PO SCH (21:00)
[2018-02-27] MEDS: OMEPRAZOLE 20 MG CAPSULE PO SCH (06:30)
[2018-02-27] MEDS: LISINOPRIL 20 MG TABLET PO SCH (08:20)
[2018-02-27] MEDS: THIAMINE HCL 100 MG TABLET PO SCH (08:21)
[2018-02-27] MEDS: MULTIVITAMINS WITH MINERALS, THERAPEUTIC TABLET PO SCH (08:21)
[2018-02-27] MEDS: NALTREXONE HCL 50 MG TABLET PO SCH (08:21)
[2018-02-27] MEDS: ASPIRIN 81 MG CHEWABLE TABLET PO SCH (08:21)
[2018-02-27] MEDS: FOLIC ACID 1 MG TABLET PO SCH (08:21)
[2018-02-27] MEDS: MUPIROCIN CALCIUM 2% 22 GM OINTMENT TP SCH (08:22)
[2018-02-27 08:33] VITALS: BP 143/77
[2018-02-27] MEDS ORDERED: MUPI15CR TP (09:13)
[2018-02-27] MEDS ORDERED: ASPI81TA87 PO (09:13)
== END 2018-02-27 11:20 | disposition home or self-care (01) | DRG 885 ==
LOC: B2X 20:30
PROVIDERS: ADMIT Psychiatry & Neurology Psychiatry; ATTEND Psychiatry & Neurology Psychiatry
DX: F20.0 Paranoid schizophrenia (principal); I48.91 Unspecified atrial fibrillation; J44.9 Chronic obstructive pulmonary disease, unspecified; Z68.41 Body mass index [BMI] 40.0-44.9, adult; E55.9 Vitamin D deficiency, unspecified; E66.9 Obesity, unspecified; F32.9 Major depressive disorder, single episode, unspecified; G47.00 Insomnia, unspecified; I10 Essential (primary) hypertension; K21.9 Gastro-esophageal reflux disease without esophagitis; K59.00 Constipation, unspecified; M17.10 Unilateral primary osteoarthritis, unspecified knee; N40.0 Benign prostatic hyperplasia without lower urinary tract symptoms; F17.210 Nicotine dependence, cigarettes, uncomplicated; Z65.3 Problems related to other legal circumstances; Z79.899 Other long term (current) drug therapy; Z91.14 Patient's other noncompliance with medication regimen; Z91.19 Patient's noncompliance with other medical treatment and regimen
CPT/HCPCS: 83036; 84439; 84443; 87081; 90471

== ENCOUNTER 2018-02-22 14:58 | Emergency (ER) | payer MEDICARE, OTHER ==
[~2018-02-22] VITALS: Ht 193 cm; Wt 131.8 kg
[2018-02-22] MEDS ORDERED: ASPIRIN 81 MG CHEWABLE TABLET PO ONE (16:00)
[2018-02-22 16:30] LABS: BASOPHILS % (AUTO) 0.4 % (0.0-2.0); EOSINOPHILS % (AUTO) 3.2 % (1.0-6.0); HEMATOCRIT 37.5 % (41-53); HEMOGLOBIN 12.3 g/dL (13.5-17.5); LYMPHOCYTES # (AUTO) 2.1 K/uL (1.0-4.8); LYMPHOCYTES % (AUTO) 31.5 % (22.0-44.0); MEAN CORPUSCULAR HEMOGLOBIN 27.8 pg (26.0-34.0); MEAN CORPUSCULAR HGB CONC 32.8 G/dL (31.0-37.0); MEAN CORPUSCULAR VOLUME 85 fL (80-100); MONOCYTES # (AUTO) 0.7 K/uL (0.1-1.0); MONOCYTES % (AUTO) 9.8 % (2.0-9.0); NEUTROPHILS # (AUTO) 3.7 K/uL (1.8-7.7); NEUTROPHILS % (AUTO) 55.1 % (40.0-70.0); PLATELET COUNT (AUTO) 173 K/uL (150-450); RED BLOOD CELL COUNT(AUTO) 4.42 MIL/uL (4.50-5.90); RED CELL DISTRIBUTION WIDTH 15.1 % (11.5-14.5)
[2018-02-22 16:37] VITALS: BP 154/94
[2018-02-22 16:40] LABS: ANION GAP 4 mmol/L (8-16); CALCIUM, TOTAL 8.6 mg/dL (8.8-10.5); CARBON DIOXIDE 27 mmol/L (22-29); CHLORIDE 107 mmol/L (98-107); CREATININE 1.22 mg/dL (0.60-1.30); GLOMERULAR FILTR. RATE CALC 59 mL/min (>60); GLUCOSE,RANDOM 105 mg/dL (70-110); SODIUM SERUM 138 mmol/L (136-145); UREA NITROGEN, BLOOD 23 mg/dL (7-18)
[2018-02-22 16:52] LABS: B-TYPE NATRIURETIC PEPTIDE 126 pg/mL (0-100)
[2018-02-22 17:05] LABS: ALANINE AMINOTRANSFERASE 21 U/L (12-78); ALKALINE PHOSPHATASE 103 U/L (46-116); ASPARTATE AMINOTRANSFERASE 17 U/L (15-37); BILIRUBIN,TOTAL 0.1 mg/dL (0.1-1.0); CREATINE KINASE MB 3.2 ng/mL (0-5); CREATINE KINASE, TOTAL 115 U/L (39-308); TOTAL PROTEIN, SERUM 6.6 g/dL (6.4-8.2)
== END 2018-02-22 18:28 | disposition home or self-care (01) ==
LOC: EMS 14:59
DX: I48.91 Unspecified atrial fibrillation (principal); F20.9 Schizophrenia, unspecified; F31.9 Bipolar disorder, unspecified; I10 Essential (primary) hypertension; F17.210 Nicotine dependence, cigarettes, uncomplicated; Z59.0 Homelessness; Z79.82 Long term (current) use of aspirin
CPT/HCPCS: 93005; 99285

== ENCOUNTER 2018-03-08 13:16 | Inpatient (IN) | payer MEDICARE, MEDICAID ==
[~2018-03-08] VITALS: Ht 193 cm; Wt 133.7 kg
[~2018-03-08 13:16] MED LIST changes: +ASPI81TA87 PO; -DSS100 PO; +MUPI15CR TP
[2018-03-08 15:21] VITALS: BP 149/90
[2018-03-08] MEDS ORDERED: GuaiFENesin/D-METHORPHAN [SUGAR-FREE] 200-20MG/10 ML SYRUP UDCUP PO PRN (15:45)
[2018-03-08] MEDS ORDERED: LOPERAMIDE HCL 2 MG CAPSULE PO PRN (15:45)
[2018-03-08] MEDS ORDERED: PROMETHAZINE HCL 25 MG TABLET PO PRN (15:45)
[2018-03-08] MEDS ORDERED: HydrOXYzine PAMOATE 50 MG CAPSULE PO PRN (15:45)
[2018-03-08] MEDS ORDERED: MAGNESIUM HYDROXIDE SUSPENSION 30 ML UDCUP PO PRN (15:45)
[2018-03-08] MEDS ORDERED: ZOLPIDEM TARTRATE 10 MG TABLET PO PRN (15:45)
[2018-03-08] MEDS ORDERED: PALIPERIDONE 1.5 MG ER TABLET PO PRN (15:45)
[2018-03-08] MEDS ORDERED: MAG HYDROX/AL HYDROX/SIMETH ES 30 ML SUSPENSION UDCUP PO PRN (15:45)
[2018-03-08] MEDS ORDERED: LORazepam 2 MG TABLET PO PRN (15:45)
[2018-03-08] MEDS ORDERED: ACETAMINOPHEN 325 MG TABLET PO PRN (15:45)
[2018-03-08] MEDS ORDERED: ASPIRIN 81 MG EC TABLET PO SCH ×2 (16:45)
[2018-03-08 16:52] VITALS: BP 158/93
[2018-03-08] MEDS: LISINOPRIL 20 MG TABLET PO SCH (17:41)
[2018-03-08] MEDS: THIAMINE HCL 100 MG TABLET PO SCH (17:42)
[2018-03-08 20:00] VITALS: BP 128/65
[2018-03-08] MEDS ORDERED: PALIPERIDONE PALMITATE 234 MG/1.5 ML SYRINGE IM ONE (20:00)
[2018-03-08] MEDS: PALIPERIDONE 3 MG ER TABLET PO SCH (20:51)
[2018-03-08] MEDS: DIVALPROEX SODIUM 500 MG ER TABLET PO SCH (20:51)
[2018-03-09 01:10] VITALS: BP 139/80
[2018-03-09] MEDS ORDERED: -PHARMACY VACCINE NOTE- MISC ONE (04:30)
[2018-03-09 07:58] LABS: BASOPHILS % (AUTO) 0.8 % (0.0-2.0); EOSINOPHILS % (AUTO) 2.8 % (1.0-6.0); HEMATOCRIT 36.9 % (41-53); HEMOGLOBIN 12.4 g/dL (13.5-17.5); LYMPHOCYTES # (AUTO) 1.7 K/uL (1.0-4.8); LYMPHOCYTES % (AUTO) 29.9 % (22.0-44.0); MEAN CORPUSCULAR HEMOGLOBIN 28.3 pg (26.0-34.0); MEAN CORPUSCULAR HGB CONC 33.6 G/dL (31.0-37.0); MEAN CORPUSCULAR VOLUME 84 fL (80-100); MONOCYTES # (AUTO) 0.5 K/uL (0.1-1.0); MONOCYTES % (AUTO) 9.1 % (2.0-9.0); NEUTROPHILS # (AUTO) 3.3 K/uL (1.8-7.7); NEUTROPHILS % (AUTO) 57.4 % (40.0-70.0); PLATELET COUNT (AUTO) 186 K/uL (150-450); RED BLOOD CELL COUNT(AUTO) 4.38 MIL/uL (4.50-5.90)
[2018-03-09 08:11] LABS: ALANINE AMINOTRANSFERASE 23 U/L (12-78); ALBUMIN 2.8 g/dL (3.4-5.0); ALKALINE PHOSPHATASE 84 U/L (46-116); ANION GAP 9 mmol/L (8-16); ASPARTATE AMINOTRANSFERASE 18 U/L (15-37); BILIRUBIN,TOTAL 0.5 mg/dL (0.1-1.0); CALCIUM, TOTAL 8.1 mg/dL (8.8-10.5); CARBON DIOXIDE 24 mmol/L (22-29); CHLORIDE 109 mmol/L (98-107); CREATININE 1.18 mg/dL (0.60-1.30); GLOMERULAR FILTR. RATE CALC > 60 mL/min (>60); GLUCOSE,RANDOM 98 mg/dL (70-110); POTASSIUM 4.2 mmol/L (3.5-5.1); SODIUM SERUM 142 mmol/L (136-145); TOTAL PROTEIN, SERUM 6.4 g/dL (6.4-8.2); UREA NITROGEN, BLOOD 22 mg/dL (7-18)
[2018-03-09 08:15] VITALS: BP 138/69
[2018-03-09] MEDS: ASPIRIN 81 MG EC TABLET PO SCH (08:18)
[2018-03-09] MEDS: FOLIC ACID 1 MG TABLET PO SCH (08:18)
[2018-03-09] MEDS: TAMSULOSIN HCL 0.4 MG CAPSULE PO SCH (08:18)
[2018-03-09] MEDS: MULTIVITAMINS WITH MINERALS, THERAPEUTIC TABLET PO SCH (08:18)
[2018-03-09] MEDS: NALTREXONE HCL 50 MG TABLET PO SCH (08:18)
[2018-03-09] MEDS: LISINOPRIL 20 MG TABLET PO SCH (08:18)
[2018-03-09] MEDS: THIAMINE HCL 100 MG TABLET PO SCH ×2 (08:18→17:05)
[2018-03-09 09:01] LABS: AMPHET/METH SCREEN,URINE NEGATIVE (NEGATIVE); BARBITURATE SCREEN, URINE NEGATIVE (NEGATIVE); BENZODIAZEPINES SCREEN,URINE NEGATIVE (NEGATIVE); CANNABINOID SCREEN,URINE NEGATIVE (NEGATIVE); COCAINE SCREEN,URINE NEGATIVE (NEGATIVE); METHADONE SCREEN, URINE NEGATIVE (NEGATIVE); OPIATE SCREEN,URINE NEGATIVE (NEGATIVE)
[2018-03-09 09:15] LABS: PHENCYCLIDINE SCREEN,URINE NEGATIVE (NEGATIVE)
[2018-03-09 09:42] LABS: BILIRUBIN,URINE NEGATIVE (NEGATIVE); GLUCOSE, URINE (UA) NEGATIVE (NEGATIVE); KETONES,URINE NEGATIVE (NEGATIVE); LEUKOCYTE ESTERASE ,URINE NEGATIVE (NEGATIVE); NITRATE,URINE NEGATIVE (NEGATIVE); OCCULT BLOOD,URINE NEGATIVE (NEGATIVE); PH,URINE 5.5 (5.0-8.0); PROTEIN,URINE NEGATIVE (NEGATIVE); UROBILINOGEN,URINE 0.2 mg/dL (<=1.0)
[2018-03-09 09:55] LABS: APPEARANCE,URINE CLEAR (CLEAR)
[2018-03-09] MEDS ORDERED: PALI234D IM (14:52)
[2018-03-09] MEDS: PALIPERIDONE 3 MG ER TABLET PO SCH (20:41)
[2018-03-09] MEDS: DIVALPROEX SODIUM 500 MG ER TABLET PO SCH (20:42)
[2018-03-10 06:26] VITALS: BP 140/90
[2018-03-10 08:10] VITALS: BP 158/99
[2018-03-10] MEDS: MULTIVITAMINS WITH MINERALS, THERAPEUTIC TABLET PO SCH (08:13)
[2018-03-10] MEDS: ASPIRIN 81 MG EC TABLET PO SCH (08:13)
[2018-03-10] MEDS: THIAMINE HCL 100 MG TABLET PO SCH ×2 (08:13→16:36)
[2018-03-10] MEDS: TAMSULOSIN HCL 0.4 MG CAPSULE PO SCH (08:13)
[2018-03-10] MEDS: FOLIC ACID 1 MG TABLET PO SCH (08:13)
[2018-03-10] MEDS: ATENOLOL 25 MG TABLET PO SCH (08:14)
[2018-03-10] MEDS: LISINOPRIL 5 MG TABLET PO SCH (08:14)
[2018-03-10] MEDS: NALTREXONE HCL 50 MG TABLET PO SCH (08:14)
[2018-03-10 09:30] VITALS: BP 143/63
[2018-03-10 16:06] VITALS: BP 116/60
[2018-03-10] MEDS: DIVALPROEX SODIUM 500 MG ER TABLET PO SCH (20:31)
[2018-03-10] MEDS: PALIPERIDONE 3 MG ER TABLET PO SCH (20:31)
[2018-03-11 05:41] VITALS: BP 134/83
[2018-03-11 08:58] VITALS: BP 140/68
[2018-03-11] MEDS: MULTIVITAMINS WITH MINERALS, THERAPEUTIC TABLET PO SCH (08:59)
[2018-03-11] MEDS: TAMSULOSIN HCL 0.4 MG CAPSULE PO SCH (08:59)
[2018-03-11] MEDS: ATENOLOL 25 MG TABLET PO SCH (08:59)
[2018-03-11] MEDS: THIAMINE HCL 100 MG TABLET PO SCH ×2 (08:59→16:57)
[2018-03-11] MEDS: FOLIC ACID 1 MG TABLET PO SCH (08:59)
[2018-03-11] MEDS: NALTREXONE HCL 50 MG TABLET PO SCH (08:59)
[2018-03-11] MEDS: LISINOPRIL 5 MG TABLET PO SCH (08:59)
[2018-03-11] MEDS: ASPIRIN 81 MG EC TABLET PO SCH (08:59)
[2018-03-11 15:56] VITALS: BP 139/66
[2018-03-11 16:01] VITALS: BP 139/66
[2018-03-11] MEDS: PALIPERIDONE 3 MG ER TABLET PO SCH (20:07)
[2018-03-11] MEDS: DIVALPROEX SODIUM 500 MG ER TABLET PO SCH (20:07)
[2018-03-12 03:38] VITALS: BP 137/74
[2018-03-12 08:05] VITALS: BP 144/86
[2018-03-12] MEDS: MULTIVITAMINS WITH MINERALS, THERAPEUTIC TABLET PO SCH (08:05)
[2018-03-12] MEDS: TAMSULOSIN HCL 0.4 MG CAPSULE PO SCH (08:05)
[2018-03-12] MEDS: ASPIRIN 81 MG EC TABLET PO SCH (08:05)
[2018-03-12] MEDS: LISINOPRIL 5 MG TABLET PO SCH (08:05)
[2018-03-12] MEDS: FOLIC ACID 1 MG TABLET PO SCH (08:05)
[2018-03-12] MEDS: ATENOLOL 25 MG TABLET PO SCH (08:05)
[2018-03-12] MEDS: NALTREXONE HCL 50 MG TABLET PO SCH (08:05)
[2018-03-12] MEDS: THIAMINE HCL 100 MG TABLET PO SCH (08:05)
[2018-03-12] MEDS ORDERED: PALIPERIDONE PALMITATE 156 MG/ML SYRINGE IM ONE ×2 (09:00)
[2018-03-12] MEDS ORDERED: PALI3 PO (11:48)
[2018-03-12] MEDS ORDERED: ASPI81 PO (11:49)
[2018-03-12] MEDS ORDERED: LISI-660 PO (11:50)
[2018-03-12] MEDS ORDERED: ATEN25TA PO (11:51)
[2018-03-12] MEDS ORDERED: TAMS0.4C32 PO (11:53)
[2018-03-13] MEDS ORDERED: PALIPERIDONE PALMITATE 156 MG/ML SYRINGE IM ONE (09:00)
== END 2018-03-12 12:35 | disposition home or self-care (01) | DRG 885 ==
LOC: B2X 15:47
PROVIDERS: ADMIT Psychiatry & Neurology Psychiatry; ATTEND Psychiatry & Neurology Psychiatry
DX: F20.0 Paranoid schizophrenia (principal); I48.91 Unspecified atrial fibrillation; J44.9 Chronic obstructive pulmonary disease, unspecified; E55.9 Vitamin D deficiency, unspecified; F41.9 Anxiety disorder, unspecified; F17.210 Nicotine dependence, cigarettes, uncomplicated; G47.00 Insomnia, unspecified; I10 Essential (primary) hypertension; K21.9 Gastro-esophageal reflux disease without esophagitis; K59.00 Constipation, unspecified; M19.90 Unspecified osteoarthritis, unspecified site; N40.0 Benign prostatic hyperplasia without lower urinary tract symptoms; Z59.0 Homelessness; Z79.82 Long term (current) use of aspirin; Z91.19 Patient's noncompliance with other medical treatment and regimen; Z79.899 Other long term (current) drug therapy
CPT/HCPCS: 80307; 87081

== ENCOUNTER 2018-03-13 18:25 | Inpatient (IN) | payer MEDICARE, MEDICAID ==
[~2018-03-13] VITALS: Ht 193 cm; Wt 129.7 kg
[~2018-03-13 18:25] MED LIST changes: +ASPI81 PO; -ASPI81TA87 PO; +ATEN25TA PO; +LISI-660 PO; -LISI-662 PO; -MUPI15CR TP; -OMEP20 PO; +PALI3 PO; -PALI6 PO
[2018-03-13] MEDS ORDERED: LORazepam 2 MG TABLET PO PRN (19:00)
[2018-03-13] MEDS ORDERED: ZOLPIDEM TARTRATE 10 MG TABLET PO PRN (19:00)
[2018-03-13 19:12] VITALS: BP 121/89
[2018-03-13 21:29] VITALS: BP 154/89
[2018-03-13] MEDS ORDERED: PETROLATUM,WHITE 71 GM JELLY TP PRN (21:45)
[2018-03-13] MEDS ORDERED: ACETAMINOPHEN 325 MG TABLET PO PRN (21:45)
[2018-03-13] MEDS ORDERED: LOPERAMIDE HCL 2 MG CAPSULE PO PRN (21:45)
[2018-03-13] MEDS ORDERED: ALBUTEROL SULFATE HFA 90 MCG/PUFF 8 GM INHALER IH PRN (21:45)
[2018-03-13] MEDS ORDERED: ONDANSETRON HCL 4 MG TABLET PO PRN (21:45)
[2018-03-13] MEDS ORDERED: BENZOCAINE/MENTHOL LOZENGE MM PRN (21:45)
[2018-03-13] MEDS ORDERED: MAG HYDROX/AL HYDROX/SIMETH ES 30 ML SUSPENSION UDCUP PO PRN (21:45)
[2018-03-13] MEDS ORDERED: BACITRACIN 28.4 GM OINTMENT TP PRN (21:45)
[2018-03-13] MEDS ORDERED: IBUPROFEN 600 MG TABLET PO PRN (21:45)
[2018-03-13] MEDS: DIVALPROEX SODIUM 500 MG ER TABLET PO SCH (22:02)
[2018-03-13] MEDS: PALIPERIDONE 3 MG ER TABLET PO SCH (22:02)
[2018-03-14 07:45] LABS: BILIRUBIN,TOTAL 0.3 mg/dL (0.1-1.0); CALCIUM, TOTAL 8.4 mg/dL (8.8-10.5); CREATININE 1.26 mg/dL (0.60-1.30); POTASSIUM 4.2 mmol/L (3.5-5.1); TOTAL PROTEIN, SERUM 6.4 g/dL (6.4-8.2)
[2018-03-14] MEDS: LISINOPRIL 5 MG TABLET PO SCH (10:55)
[2018-03-14] MEDS: DOCUSATE SODIUM 100 MG CAPSULE PO SCH (10:55)
[2018-03-14] MEDS: ATENOLOL 25 MG TABLET PO SCH (10:56)
[2018-03-14] MEDS: NALTREXONE HCL 50 MG TABLET PO SCH (10:56)
[2018-03-14] MEDS: OMEPRAZOLE 20 MG CAPSULE PO SCH (10:56)
[2018-03-14] MEDS: TAMSULOSIN HCL 0.4 MG CAPSULE PO SCH (10:56)
[2018-03-14] MEDS: ASPIRIN 81 MG CHEWABLE TABLET PO SCH (10:56)
[2018-03-14 11:06] VITALS: BP 142/109
[2018-03-14] MEDS ORDERED: HydrOXYzine PAMOATE 50 MG CAPSULE PO PRN (13:15)
[2018-03-14] MEDS ORDERED: GuaiFENesin/D-METHORPHAN [SUGAR-FREE] 200-20MG/10 ML SYRUP UDCUP PO PRN (13:15)
[2018-03-14] MEDS: THIAMINE HCL 100 MG TABLET PO SCH (16:27)
[2018-03-14] MEDS: DIVALPROEX SODIUM 500 MG ER TABLET PO SCH (20:19)
[2018-03-14] MEDS: PALIPERIDONE 3 MG ER TABLET PO SCH (20:19)
[2018-03-15] MEDS: FOLIC ACID 1 MG TABLET PO SCH (08:55)
[2018-03-15] MEDS: THIAMINE HCL 100 MG TABLET PO SCH ×2 (08:55→17:18)
[2018-03-15] MEDS: ASPIRIN 81 MG CHEWABLE TABLET PO SCH (08:55)
[2018-03-15] MEDS: OMEPRAZOLE 20 MG CAPSULE PO SCH (08:55)
[2018-03-15] MEDS: LISINOPRIL 5 MG TABLET PO SCH (08:55)
[2018-03-15] MEDS: MULTIVITAMINS WITH MINERALS, THERAPEUTIC TABLET PO SCH (08:55)
[2018-03-15] MEDS: NALTREXONE HCL 50 MG TABLET PO SCH (08:56)
[2018-03-15] MEDS: ATENOLOL 25 MG TABLET PO SCH (08:56)
[2018-03-15] MEDS: DOCUSATE SODIUM 100 MG CAPSULE PO SCH (08:56)
[2018-03-15] MEDS: TAMSULOSIN HCL 0.4 MG CAPSULE PO SCH (08:56)
[2018-03-15 17:00] VITALS: BP 131/79
[2018-03-15] MEDS: PALIPERIDONE 3 MG ER TABLET PO SCH (21:07)
[2018-03-15] MEDS: DIVALPROEX SODIUM 500 MG ER TABLET PO SCH (21:07)
[2018-03-16] MEDS: LISINOPRIL 5 MG TABLET PO SCH (09:06)
[2018-03-16] MEDS: DOCUSATE SODIUM 100 MG CAPSULE PO SCH (09:06)
[2018-03-16] MEDS: ATENOLOL 25 MG TABLET PO SCH (09:06)
[2018-03-16] MEDS: THIAMINE HCL 100 MG TABLET PO SCH ×2 (09:06→16:58)
[2018-03-16] MEDS: MULTIVITAMINS WITH MINERALS, THERAPEUTIC TABLET PO SCH (09:06)
[2018-03-16] MEDS: NALTREXONE HCL 50 MG TABLET PO SCH (09:07)
[2018-03-16] MEDS: ASPIRIN 81 MG CHEWABLE TABLET PO SCH (09:07)
[2018-03-16] MEDS: TAMSULOSIN HCL 0.4 MG CAPSULE PO SCH (09:07)
[2018-03-16] MEDS: FOLIC ACID 1 MG TABLET PO SCH (09:07)
[2018-03-16] MEDS: OMEPRAZOLE 20 MG CAPSULE PO SCH (09:08)
[2018-03-16 09:50] VITALS: BP 145/71
[2018-03-16 16:00] VITALS: BP 136/66
[2018-03-16] MEDS: PALIPERIDONE 3 MG ER TABLET PO SCH (21:50)
[2018-03-16] MEDS: DIVALPROEX SODIUM 500 MG ER TABLET PO SCH (21:50)
[2018-03-17] MEDS: NALTREXONE HCL 50 MG TABLET PO SCH (08:20)
[2018-03-17] MEDS: ATENOLOL 25 MG TABLET PO SCH (08:20)
[2018-03-17] MEDS: FOLIC ACID 1 MG TABLET PO SCH (08:20)
[2018-03-17] MEDS: THIAMINE HCL 100 MG TABLET PO SCH (08:20)
[2018-03-17] MEDS: LISINOPRIL 5 MG TABLET PO SCH (08:21)
[2018-03-17] MEDS: ASPIRIN 81 MG CHEWABLE TABLET PO SCH (08:21)
[2018-03-17] MEDS: DOCUSATE SODIUM 100 MG CAPSULE PO SCH (08:21)
[2018-03-17] MEDS: MULTIVITAMINS WITH MINERALS, THERAPEUTIC TABLET PO SCH (08:21)
[2018-03-17] MEDS: TAMSULOSIN HCL 0.4 MG CAPSULE PO SCH (08:21)
[2018-03-17] MEDS: OMEPRAZOLE 20 MG CAPSULE PO SCH (08:23)
[2018-03-17] MEDS ORDERED: DSS100 PO (08:38)
[2018-03-17] MEDS ORDERED: FOLI1 PO (08:38)
[2018-03-17] MEDS ORDERED: OMEP20 PO (08:42)
[2018-03-17 10:01] VITALS: BP 166/90
== END 2018-03-17 12:45 | disposition home or self-care (01) | DRG 885 ==
LOC: 3EI 19:03
PROVIDERS: ADMIT Psychiatry & Neurology Psychiatry; ATTEND Psychiatry & Neurology Psychiatry
DX: F20.0 Paranoid schizophrenia (principal); I48.91 Unspecified atrial fibrillation; R45.851 Suicidal ideations; J44.9 Chronic obstructive pulmonary disease, unspecified; E55.9 Vitamin D deficiency, unspecified; F17.210 Nicotine dependence, cigarettes, uncomplicated; E66.9 Obesity, unspecified; G89.4 Chronic pain syndrome; I10 Essential (primary) hypertension; K21.9 Gastro-esophageal reflux disease without esophagitis; K59.00 Constipation, unspecified; M19.90 Unspecified osteoarthritis, unspecified site; N40.0 Benign prostatic hyperplasia without lower urinary tract symptoms; D64.9 Anemia, unspecified; R45.850 Homicidal ideations; Z59.0 Homelessness; Z65.3 Problems related to other legal circumstances; Z79.82 Long term (current) use of aspirin; Z79.899 Other long term (current) drug therapy; Z91.19 Patient's noncompliance with other medical treatment and regimen; Z68.34 Body mass index [BMI] 34.0-34.9, adult
CPT/HCPCS: 87081

== ENCOUNTER 2018-03-25 22:48 | Inpatient (IN) | payer MEDICARE, MEDICAID ==
[~2018-03-25] VITALS: Ht 193 cm; Wt 136.6 kg
[~2018-03-25 22:48] MED LIST changes: +DSS100 PO; +FOLI1 PO; +OMEP20 PO
[2018-03-25 23:03] LABS: GLUCOSE,POINT OF CARE 117 MG/DL (70-110)
[2018-03-25 23:38] LABS: BASOPHILS % (AUTO) 0.7 % (0.0-2.0); EOSINOPHILS % (AUTO) 2.4 % (1.0-6.0); HEMATOCRIT 38.1 % (41-53); HEMOGLOBIN 12.5 g/dL (13.5-17.5); LYMPHOCYTES # (AUTO) 1.8 K/uL (1.0-4.8); LYMPHOCYTES % (AUTO) 25.6 % (22.0-44.0); MEAN CORPUSCULAR HGB CONC 32.9 G/dL (31.0-37.0); MEAN CORPUSCULAR VOLUME 85 fL (80-100); MONOCYTES # (AUTO) 0.8 K/uL (0.1-1.0); MONOCYTES % (AUTO) 11.7 % (2.0-9.0); NEUTROPHILS # (AUTO) 4.3 K/uL (1.8-7.7); NEUTROPHILS % (AUTO) 59.6 % (40.0-70.0); PLATELET COUNT (AUTO) 165 K/uL (150-450); RED BLOOD CELL COUNT(AUTO) 4.47 MIL/uL (4.50-5.90)
[2018-03-25] MEDS ORDERED: OLANZapine 5 MG RAPDIS TABLET PO PRN (23:45)
[2018-03-25] MEDS ORDERED: ZOLPIDEM TARTRATE 10 MG TABLET PO PRN (23:45)
[2018-03-25] MEDS ORDERED: LORazepam 2 MG TABLET PO PRN (23:45)
[2018-03-25 23:47] LABS: ANION GAP 6 mmol/L (8-16); CALCIUM, TOTAL 8.2 mg/dL (8.8-10.5); CARBON DIOXIDE 26 mmol/L (22-29); CHLORIDE 110 mmol/L (98-107); CREATININE 1.31 mg/dL (0.60-1.30); GLOMERULAR FILTR. RATE CALC 54 mL/min (>60); GLUCOSE,RANDOM 114 mg/dL (70-110); POTASSIUM 3.8 mmol/L (3.5-5.1); SODIUM SERUM 142 mmol/L (136-145); UREA NITROGEN, BLOOD 26 mg/dL (7-18)
[2018-03-25 23:53] LABS: ALANINE AMINOTRANSFERASE 25 U/L (12-78); ALBUMIN 3.1 g/dL (3.4-5.0); ALKALINE PHOSPHATASE 103 U/L (46-116); ASPARTATE AMINOTRANSFERASE 21 U/L (15-37); BILIRUBIN,TOTAL 0.2 mg/dL (0.1-1.0); TOTAL PROTEIN, SERUM 6.8 g/dL (6.4-8.2)
[2018-03-26 00:03] LABS: VALPROIC ACID 5 mcg/mL (50-100)
[2018-03-26 00:39] LABS: AMPHET/METH SCREEN,URINE NEGATIVE (NEGATIVE); BARBITURATE SCREEN, URINE NEGATIVE (NEGATIVE); BENZODIAZEPINES SCREEN,URINE NEGATIVE (NEGATIVE); CANNABINOID SCREEN,URINE NEGATIVE (NEGATIVE); COCAINE SCREEN,URINE NEGATIVE (NEGATIVE); METHADONE SCREEN, URINE NEGATIVE (NEGATIVE); OPIATE SCREEN,URINE NEGATIVE (NEGATIVE)
[2018-03-26 00:45] LABS: PHENCYCLIDINE SCREEN,URINE NEGATIVE (NEGATIVE)
[2018-03-26 01:58] VITALS: BP 130/100
[2018-03-26 05:06] LABS: APPEARANCE,URINE CLOUDY (CLEAR); BILIRUBIN,URINE NEGATIVE (NEGATIVE); GLUCOSE, URINE (UA) NEGATIVE (NEGATIVE); KETONES,URINE NEGATIVE (NEGATIVE); LEUKOCYTE ESTERASE ,URINE NEGATIVE (NEGATIVE); NITRATE,URINE NEGATIVE (NEGATIVE); OCCULT BLOOD,URINE NEGATIVE (NEGATIVE); PH,URINE 5.5 (5.0-8.0); PROTEIN,URINE NEGATIVE (NEGATIVE)
[2018-03-26 05:30] LABS: BACTERIA,URINE Many /HPF (None Seen); RBC,URINE None Seen /HPF (0-2); SQUAMOUS EPITHELIAL CELL,UR Rare /LPF (None Seen); WBC,URINE None Seen /HPF (0-5)
[2018-03-26] MEDS ORDERED: ALBUTEROL SULFATE HFA 90 MCG/PUFF 8 GM INHALER IH PRN (06:30)
[2018-03-26] MEDS ORDERED: BACITRACIN 28.4 GM OINTMENT TP PRN (06:30)
[2018-03-26] MEDS ORDERED: ACETAMINOPHEN 325 MG TABLET PO PRN (06:30)
[2018-03-26] MEDS ORDERED: LOPERAMIDE HCL 2 MG CAPSULE PO PRN (06:30)
[2018-03-26] MEDS ORDERED: PETROLATUM,WHITE 71 GM JELLY TP PRN (06:30)
[2018-03-26] MEDS ORDERED: ONDANSETRON HCL 4 MG TABLET PO PRN (06:30)
[2018-03-26] MEDS ORDERED: CloNIDine HCL 0.1 MG TABLET PO PRN (06:30)
[2018-03-26] MEDS ORDERED: BENZOCAINE/MENTHOL LOZENGE MM PRN (06:30)
[2018-03-26] MEDS ORDERED: MAGNESIUM HYDROXIDE SUSPENSION 30 ML UDCUP PO PRN (06:30)
[2018-03-26] MEDS ORDERED: MAG HYDROX/AL HYDROX/SIMETH ES 30 ML SUSPENSION UDCUP PO PRN (06:30)
[2018-03-26] MEDS: LISINOPRIL 5 MG TABLET PO SCH (08:52)
[2018-03-26] MEDS: TAMSULOSIN HCL 0.4 MG CAPSULE PO SCH (08:52)
[2018-03-26] MEDS: OMEPRAZOLE 20 MG CAPSULE PO SCH (08:52)
[2018-03-26] MEDS: CHOLECALCIFEROL (VIT D3) 1,000 UNITS TABLET PO SCH (08:52)
[2018-03-26] MEDS: ATENOLOL 25 MG TABLET PO SCH (08:52)
[2018-03-26] MEDS: DOCUSATE SODIUM 100 MG CAPSULE PO SCH (08:52)
[2018-03-26] MEDS: ASPIRIN 81 MG CHEWABLE TABLET PO SCH (08:53)
[2018-03-26] MEDS: IBUPROFEN 600 MG TABLET PO PRN (08:54)
[2018-03-26 08:56] VITALS: BP 132/82
[2018-03-26] MEDS: NALTREXONE HCL 50 MG TABLET PO SCH (10:37)
[2018-03-26 16:00] VITALS: BP 121/87
[2018-03-26] MEDS: PALIPERIDONE 3 MG ER TABLET PO SCH (20:50)
[2018-03-26] MEDS: DIVALPROEX SODIUM 500 MG ER TABLET PO SCH (20:50)
[2018-03-27 09:09] VITALS: BP 125/69
[2018-03-27] MEDS: OMEPRAZOLE 20 MG CAPSULE PO SCH (10:23)
[2018-03-27] MEDS: DOCUSATE SODIUM 100 MG CAPSULE PO SCH (10:23)
[2018-03-27] MEDS: NALTREXONE HCL 50 MG TABLET PO SCH (10:23)
[2018-03-27] MEDS: ATENOLOL 25 MG TABLET PO SCH (10:23)
[2018-03-27] MEDS: CHOLECALCIFEROL (VIT D3) 1,000 UNITS TABLET PO SCH (10:23)
[2018-03-27] MEDS: TAMSULOSIN HCL 0.4 MG CAPSULE PO SCH (10:24)
[2018-03-27] MEDS: ASPIRIN 81 MG CHEWABLE TABLET PO SCH (10:24)
[2018-03-27] MEDS: LISINOPRIL 5 MG TABLET PO SCH (10:24)
[2018-03-27] MEDS ORDERED: GuaiFENesin/D-METHORPHAN [SUGAR-FREE] 200-20MG/10 ML SYRUP UDCUP PO PRN (17:15)
[2018-03-27] MEDS ORDERED: HydrOXYzine PAMOATE 50 MG CAPSULE PO PRN (17:15)
[2018-03-27 17:54] VITALS: BP 118/85
[2018-03-27] MEDS: DIVALPROEX SODIUM 500 MG ER TABLET PO SCH (20:27)
[2018-03-27] MEDS: PALIPERIDONE 3 MG ER TABLET PO SCH (20:27)
[2018-03-28] MEDS: THIAMINE HCL 100 MG TABLET PO SCH ×2 (08:27→16:21)
[2018-03-28] MEDS: ASPIRIN 81 MG CHEWABLE TABLET PO SCH (08:27)
[2018-03-28] MEDS: MULTIVITAMINS WITH MINERALS, THERAPEUTIC TABLET PO SCH (08:28)
[2018-03-28] MEDS: CHOLECALCIFEROL (VIT D3) 1,000 UNITS TABLET PO SCH (08:28)
[2018-03-28] MEDS: DOCUSATE SODIUM 100 MG CAPSULE PO SCH (08:28)
[2018-03-28] MEDS: LISINOPRIL 5 MG TABLET PO SCH (08:28)
[2018-03-28] MEDS: FOLIC ACID 1 MG TABLET PO SCH (08:28)
[2018-03-28] MEDS: OMEPRAZOLE 20 MG CAPSULE PO SCH (08:28)
[2018-03-28] MEDS: TAMSULOSIN HCL 0.4 MG CAPSULE PO SCH (08:28)
[2018-03-28] MEDS: NALTREXONE HCL 50 MG TABLET PO SCH (08:30)
[2018-03-28] MEDS: ATENOLOL 25 MG TABLET PO SCH (08:30)
[2018-03-28 09:42] VITALS: BP 116/60
[2018-03-28] MEDS: IBUPROFEN 600 MG TABLET PO PRN (09:42)
[2018-03-28] MEDS: MUPIROCIN CALCIUM 2% 22 GM OINTMENT NASAL SCH (16:21)
[2018-03-28 17:00] VITALS: BP 112/50
[2018-03-28] MEDS: PALIPERIDONE 3 MG ER TABLET PO SCH (20:24)
[2018-03-28] MEDS: DIVALPROEX SODIUM 500 MG ER TABLET PO SCH (20:25)
[2018-03-29] MEDS: MUPIROCIN CALCIUM 2% 22 GM OINTMENT NASAL SCH ×2 (09:00→16:44)
[2018-03-29 09:25] VITALS: BP 167/101
[2018-03-29] MEDS: FOLIC ACID 1 MG TABLET PO SCH (09:28)
[2018-03-29] MEDS: ASPIRIN 81 MG CHEWABLE TABLET PO SCH (09:28)
[2018-03-29] MEDS: DOCUSATE SODIUM 100 MG CAPSULE PO SCH (09:28)
[2018-03-29] MEDS: CHOLECALCIFEROL (VIT D3) 1,000 UNITS TABLET PO SCH (09:29)
[2018-03-29] MEDS: TAMSULOSIN HCL 0.4 MG CAPSULE PO SCH (09:29)
[2018-03-29] MEDS: MULTIVITAMINS WITH MINERALS, THERAPEUTIC TABLET PO SCH (09:29)
[2018-03-29] MEDS: NALTREXONE HCL 50 MG TABLET PO SCH (09:29)
[2018-03-29] MEDS: OMEPRAZOLE 20 MG CAPSULE PO SCH (09:29)
[2018-03-29] MEDS: THIAMINE HCL 100 MG TABLET PO SCH ×2 (09:29→16:43)
[2018-03-29] MEDS: LISINOPRIL 5 MG TABLET PO SCH (09:34)
[2018-03-29] MEDS: ATENOLOL 25 MG TABLET PO SCH (09:35)
[2018-03-29 10:50] VITALS: BP 138/94
[2018-03-29 17:11] VITALS: BP 142/77
[2018-03-29] MEDS: DIVALPROEX SODIUM 500 MG ER TABLET PO SCH (20:14)
[2018-03-29] MEDS: PALIPERIDONE 3 MG ER TABLET PO SCH (20:14)
[2018-03-30] MEDS ORDERED: LISINOPRIL 10 MG TABLET PO SCH (09:00)
[2018-03-30] MEDS: ATENOLOL 25 MG TABLET PO SCH (09:35)
[2018-03-30] MEDS: ASPIRIN 81 MG CHEWABLE TABLET PO SCH (09:36)
[2018-03-30] MEDS: OMEPRAZOLE 20 MG CAPSULE PO SCH (09:36)
[2018-03-30] MEDS: CHOLECALCIFEROL (VIT D3) 1,000 UNITS TABLET PO SCH (09:36)
[2018-03-30] MEDS: MULTIVITAMINS WITH MINERALS, THERAPEUTIC TABLET PO SCH (09:36)
[2018-03-30] MEDS: NALTREXONE HCL 50 MG TABLET PO SCH (09:36)
[2018-03-30] MEDS: THIAMINE HCL 100 MG TABLET PO SCH (09:39)
[2018-03-30] MEDS: FOLIC ACID 1 MG TABLET PO SCH (09:39)
[2018-03-30] MEDS: TAMSULOSIN HCL 0.4 MG CAPSULE PO SCH (09:40)
[2018-03-30] MEDS: MUPIROCIN CALCIUM 2% 22 GM OINTMENT NASAL SCH (09:46)
[2018-03-30] MEDS ORDERED: VITAD1000 PO (11:05)
[2018-03-30] MEDS ORDERED: MUPI1OIN4 NS (11:06)
[2018-03-30] MEDS ORDERED: NALT50TA PO (11:13)
[2018-03-30] MEDS ORDERED: PALI3 PO (11:13)
[2018-03-30] MEDS ORDERED: DIVA500T52 PO (11:13)
== END 2018-03-30 12:15 | disposition home or self-care (01) | DRG 885 ==
LOC: EMS 22:49 → 3EI 23:45
PROVIDERS: ADMIT Psychiatry & Neurology Child & Adolescent Psychiatry; ATTEND Psychiatry & Neurology Psychiatry
DX: F20.0 Paranoid schizophrenia (principal); R45.851 Suicidal ideations; J44.9 Chronic obstructive pulmonary disease, unspecified; N40.0 Benign prostatic hyperplasia without lower urinary tract symptoms; K21.9 Gastro-esophageal reflux disease without esophagitis; M19.90 Unspecified osteoarthritis, unspecified site; I48.91 Unspecified atrial fibrillation; E55.9 Vitamin D deficiency, unspecified; N18.3 Chronic kidney disease, stage 3 (moderate); I12.9 Hypertensive chronic kidney disease with stage 1 through stage 4 chronic kidney disease, or unspecified chronic kidney disease; E66.9 Obesity, unspecified; K59.00 Constipation, unspecified; F17.200 Nicotine dependence, unspecified, uncomplicated; Z91.19 Patient's noncompliance with other medical treatment and regimen; Z59.0 Homelessness; Z79.899 Other long term (current) drug therapy; Z79.82 Long term (current) use of aspirin; Z68.36 Body mass index [BMI] 36.0-36.9, adult; Z71.6 Tobacco abuse counseling; Z22.322 Carrier or suspected carrier of Methicillin resistant Staphylococcus aureus
CPT/HCPCS: 87081; 87086; 99285; G0480; J3535

== ENCOUNTER 2018-04-07 22:57 | Inpatient (IN) | payer MEDICARE, MEDICAID ==
[~2018-04-07] VITALS: Ht 193 cm; Wt 141.1 kg
[~2018-04-07 22:57] MED LIST changes: -FOLI1 PO; +MUPI1OIN4 NS; +NALT50TA PO; -NALT50TA6 PO; +VITAD1000 PO
[2018-04-07 23:11] VITALS: BP 148/108
[2018-04-07] MEDS ORDERED: LORazepam 1 MG TABLET PO PRN (23:15)
[2018-04-07] MEDS ORDERED: ChlorproMAZINE HCL 100 MG TABLET PO PRN (23:15)
[2018-04-07] MEDS ORDERED: ZOLPIDEM TARTRATE 5 MG TABLET PO PRN (23:15)
[2018-04-08 00:21] VITALS: BP 133/86
[2018-04-08] MEDS ORDERED: -PHARMACY VACCINE NOTE- MISC ONE (01:15)
[2018-04-08] MEDS ORDERED: CloNIDine HCL 0.1 MG TABLET PO PRN (07:30)
[2018-04-08] MEDS ORDERED: BACITRACIN 28.4 GM OINTMENT TP PRN (07:30)
[2018-04-08] MEDS ORDERED: BENZOCAINE/MENTHOL LOZENGE MM PRN (07:30)
[2018-04-08] MEDS ORDERED: ALBUTEROL SULFATE HFA 90 MCG/PUFF 8 GM INHALER IH PRN (07:30)
[2018-04-08] MEDS ORDERED: PETROLATUM,WHITE 71 GM JELLY TP PRN (07:30)
[2018-04-08] MEDS ORDERED: MAG HYDROX/AL HYDROX/SIMETH ES 30 ML SUSPENSION UDCUP PO PRN (07:30)
[2018-04-08] MEDS ORDERED: ACETAMINOPHEN 325 MG TABLET PO PRN (07:30)
[2018-04-08] MEDS ORDERED: IBUPROFEN 600 MG TABLET PO PRN (07:30)
[2018-04-08] MEDS ORDERED: ONDANSETRON HCL 4 MG TABLET PO PRN (07:30)
[2018-04-08] MEDS ORDERED: LOPERAMIDE HCL 2 MG CAPSULE PO PRN (07:30)
[2018-04-08] MEDS ORDERED: MAGNESIUM HYDROXIDE SUSPENSION 30 ML UDCUP PO PRN (07:30)
[2018-04-08 07:49] LABS: EOSINOPHILS % (AUTO) 2.8 % (1.0-6.0); HEMATOCRIT 37.4 % (41-53); HEMOGLOBIN 12.6 g/dL (13.5-17.5); LYMPHOCYTES # (AUTO) 1.6 K/uL (1.0-4.8); LYMPHOCYTES % (AUTO) 28.1 % (22.0-44.0); MEAN CORPUSCULAR HEMOGLOBIN 28.7 pg (26.0-34.0); MEAN CORPUSCULAR HGB CONC 33.7 G/dL (31.0-37.0); MEAN CORPUSCULAR VOLUME 85 fL (80-100); MONOCYTES # (AUTO) 0.6 K/uL (0.1-1.0); MONOCYTES % (AUTO) 11.5 % (2.0-9.0); NEUTROPHILS # (AUTO) 3.2 K/uL (1.8-7.7); NEUTROPHILS % (AUTO) 56.6 % (40.0-70.0); PLATELET COUNT (AUTO) 175 K/uL (150-450); RED BLOOD CELL COUNT(AUTO) 4.39 MIL/uL (4.50-5.90); RED CELL DISTRIBUTION WIDTH 14.8 % (11.5-14.5)
[2018-04-08 08:33] LABS: ALBUMIN 2.9 g/dL (3.4-5.0); BILIRUBIN,TOTAL 0.3 mg/dL (0.1-1.0); CALCIUM, TOTAL 8.1 mg/dL (8.8-10.5); CHOL/HDL RATIO 2.7 (4.2-7.3); CREATININE 1.22 mg/dL (0.60-1.30); FREE T4 (FREE THYROXINE) 0.9 ng/dL (0.76-1.46); POTASSIUM 4.5 mmol/L (3.5-5.1); THYROID STIMULATING HORMONE 2.1 uIU/mL (0.36-3.74); TOTAL PROTEIN, SERUM 6.1 g/dL (6.4-8.2)
[2018-04-08 08:36] VITALS: BP 142/73
[2018-04-08] MEDS: TAMSULOSIN HCL 0.4 MG CAPSULE PO SCH (08:55)
[2018-04-08] MEDS: ASPIRIN 81 MG CHEWABLE TABLET PO SCH (08:55)
[2018-04-08] MEDS: PALIPERIDONE 3 MG ER TABLET PO SCH (08:55)
[2018-04-08] MEDS: OMEPRAZOLE 20 MG CAPSULE PO SCH (08:55)
[2018-04-08] MEDS: LISINOPRIL 10 MG TABLET PO SCH (08:56)
[2018-04-08] MEDS: CHOLECALCIFEROL (VIT D3) 1,000 UNITS TABLET PO SCH (08:56)
[2018-04-08] MEDS: DOCUSATE SODIUM 100 MG CAPSULE PO SCH (08:56)
[2018-04-08] MEDS ORDERED: MUPIROCIN CALCIUM 2% 15 GM CREAM TP SCH (09:00)
[2018-04-08] MEDS: ATENOLOL 25 MG TABLET PO SCH (16:16)
[2018-04-08 16:28] VITALS: BP 140/85
[2018-04-08] MEDS: DIVALPROEX SODIUM 500 MG ER TABLET PO SCH (21:08)
[2018-04-08] MEDS: MUPIROCIN CALCIUM 2% 22 GM OINTMENT TP SCH (21:26)
[2018-04-09] MEDS: ATENOLOL 25 MG TABLET PO SCH (08:26)
[2018-04-09] MEDS: ASPIRIN 81 MG CHEWABLE TABLET PO SCH (08:26)
[2018-04-09] MEDS: TAMSULOSIN HCL 0.4 MG CAPSULE PO SCH (08:26)
[2018-04-09] MEDS: LISINOPRIL 10 MG TABLET PO SCH (08:27)
[2018-04-09] MEDS: OMEPRAZOLE 20 MG CAPSULE PO SCH (08:27)
[2018-04-09] MEDS: CHOLECALCIFEROL (VIT D3) 1,000 UNITS TABLET PO SCH (08:27)
[2018-04-09] MEDS: PALIPERIDONE 3 MG ER TABLET PO SCH (08:27)
[2018-04-09] MEDS: DOCUSATE SODIUM 100 MG CAPSULE PO SCH (08:27)
[2018-04-09] MEDS: MUPIROCIN CALCIUM 2% 22 GM OINTMENT TP SCH ×2 (08:28→16:58)
[2018-04-09 08:30] VITALS: BP 129/80
[2018-04-09 16:43] VITALS: BP 136/81
[2018-04-09] MEDS: DIVALPROEX SODIUM 500 MG ER TABLET PO SCH (20:14)
[2018-04-10 08:00] VITALS: BP 138/86
[2018-04-10] MEDS: ASPIRIN 81 MG CHEWABLE TABLET PO SCH (08:06)
[2018-04-10] MEDS: DOCUSATE SODIUM 100 MG CAPSULE PO SCH (08:06)
[2018-04-10] MEDS: CHOLECALCIFEROL (VIT D3) 1,000 UNITS TABLET PO SCH (08:06)
[2018-04-10] MEDS: PALIPERIDONE 3 MG ER TABLET PO SCH (08:06)
[2018-04-10] MEDS: OMEPRAZOLE 20 MG CAPSULE PO SCH (08:06)
[2018-04-10] MEDS: TAMSULOSIN HCL 0.4 MG CAPSULE PO SCH (08:06)
[2018-04-10] MEDS: ATENOLOL 25 MG TABLET PO SCH (08:06)
[2018-04-10] MEDS: LISINOPRIL 10 MG TABLET PO SCH (08:06)
[2018-04-10] MEDS: MUPIROCIN CALCIUM 2% 22 GM OINTMENT TP SCH (08:07)
[2018-04-10] MEDS ORDERED: NALT50TA6 PO (13:36)
[2018-04-10] MEDS ORDERED: PALI3 PO ×2 (13:36→14:05)
[2018-04-10] MEDS ORDERED: DIVA500T52 PO ×2 (13:36→14:03)
== END 2018-04-10 15:41 | disposition home or self-care (01) | DRG 885 ==
LOC: B2X 23:17
PROVIDERS: ADMIT Psychiatry & Neurology Psychiatry; ATTEND Psychiatry & Neurology Psychiatry
DX: F25.0 Schizoaffective disorder, bipolar type (principal); R45.851 Suicidal ideations; J44.9 Chronic obstructive pulmonary disease, unspecified; N40.0 Benign prostatic hyperplasia without lower urinary tract symptoms; K21.9 Gastro-esophageal reflux disease without esophagitis; I10 Essential (primary) hypertension; M19.90 Unspecified osteoarthritis, unspecified site; I48.91 Unspecified atrial fibrillation; E55.9 Vitamin D deficiency, unspecified; M54.9 Dorsalgia, unspecified; M25.569 Pain in unspecified knee; G47.00 Insomnia, unspecified; E66.9 Obesity, unspecified; Z91.14 Patient's other noncompliance with medication regimen; Z68.37 Body mass index [BMI] 37.0-37.9, adult
CPT/HCPCS: 84439; 84443; 87081

== ENCOUNTER 2018-05-17 22:35 | Inpatient (IN) | payer MEDICARE, MEDICAID ==
[~2018-05-17] VITALS: Ht 193 cm; Wt 136.1 kg
[~2018-05-17 22:35] MED LIST changes: +NALT50TA6 PO
[2018-05-17] MEDS ORDERED: LORazepam 2 MG TABLET PO PRN (23:15)
[2018-05-17] MEDS ORDERED: ZOLPIDEM TARTRATE 10 MG TABLET PO PRN (23:15)
[2018-05-17] MEDS ORDERED: HALOPERIDOL 5 MG TABLET PO PRN (23:15)
[2018-05-17 23:23] VITALS: BP 138/70
[2018-05-18 00:56] VITALS: BP 116/73
[2018-05-18 08:02] VITALS: BP 119/73
[2018-05-18] MEDS: OMEPRAZOLE 20 MG CAPSULE PO SCH (08:29)
[2018-05-18] MEDS: LISINOPRIL 10 MG TABLET PO SCH (08:29)
[2018-05-18] MEDS: TAMSULOSIN HCL 0.4 MG CAPSULE PO SCH (08:29)
[2018-05-18] MEDS: CHOLECALCIFEROL (VIT D3) 1,000 UNITS TABLET PO SCH (08:29)
[2018-05-18] MEDS: PALIPERIDONE 3 MG ER TABLET PO SCH (08:29)
[2018-05-18] MEDS: DOCUSATE SODIUM 100 MG CAPSULE PO SCH (08:29)
[2018-05-18] MEDS: ASPIRIN 81 MG CHEWABLE TABLET PO SCH (08:29)
[2018-05-18] MEDS ORDERED: ATENOLOL 25 MG TABLET PO SCH (09:00)
[2018-05-18] MEDS: POTASSIUM CHLORIDE 10 MEQ ER TABLET PO SCH (15:21)
[2018-05-18] MEDS: FUROSEMIDE 20 MG TABLET PO SCH (15:21)
[2018-05-18 16:08] VITALS: BP 140/62
[2018-05-18] MEDS: DIVALPROEX SODIUM 500 MG ER TABLET PO SCH (20:33)
[2018-05-19 06:54] VITALS: BP 129/81
[2018-05-19 08:25] VITALS: BP 130/76
[2018-05-19] MEDS: PALIPERIDONE 3 MG ER TABLET PO SCH (08:29)
[2018-05-19] MEDS: FUROSEMIDE 20 MG TABLET PO SCH (08:29)
[2018-05-19] MEDS: DOCUSATE SODIUM 100 MG CAPSULE PO SCH (08:29)
[2018-05-19] MEDS: POTASSIUM CHLORIDE 10 MEQ ER TABLET PO SCH (08:29)
[2018-05-19] MEDS: OMEPRAZOLE 20 MG CAPSULE PO SCH (08:29)
[2018-05-19] MEDS: ATENOLOL 25 MG TABLET PO SCH (08:29)
[2018-05-19] MEDS: CHOLECALCIFEROL (VIT D3) 1,000 UNITS TABLET PO SCH (08:30)
[2018-05-19] MEDS: LISINOPRIL 10 MG TABLET PO SCH (08:30)
[2018-05-19] MEDS: TAMSULOSIN HCL 0.4 MG CAPSULE PO SCH (08:30)
[2018-05-19] MEDS: ASPIRIN 81 MG CHEWABLE TABLET PO SCH (08:30)
[2018-05-19 09:15] LABS: BASOPHILS % (AUTO) 0.5 % (0.0-2.0); EOSINOPHILS % (AUTO) 3.5 % (1.0-6.0); HEMATOCRIT 37.6 % (41-53); HEMOGLOBIN 12.6 g/dL (13.5-17.5); LYMPHOCYTES # (AUTO) 1.8 K/uL (1.0-4.8); LYMPHOCYTES % (AUTO) 33.2 % (22.0-44.0); MEAN CORPUSCULAR HEMOGLOBIN 28.3 pg (26.0-34.0); MEAN CORPUSCULAR HGB CONC 33.6 G/dL (31.0-37.0); MEAN CORPUSCULAR VOLUME 84 fL (80-100); MONOCYTES # (AUTO) 0.5 K/uL (0.1-1.0); MONOCYTES % (AUTO) 8.9 % (2.0-9.0); NEUTROPHILS # (AUTO) 2.9 K/uL (1.8-7.7); NEUTROPHILS % (AUTO) 53.9 % (40.0-70.0); PLATELET COUNT (AUTO) 171 K/uL (150-450); RED BLOOD CELL COUNT(AUTO) 4.46 MIL/uL (4.50-5.90); RED CELL DISTRIBUTION WIDTH 14.1 % (11.5-14.5)
[2018-05-19 09:17] LABS: HEMOGLOBIN A1C 5.2 % (4.5-6.2)
[2018-05-19 09:46] LABS: PROSTATE SPECIFIC ANTIGEN 4.56 ng/mL (0.00-4.00)
[2018-05-19 09:48] LABS: ALBUMIN 2.9 g/dL (3.4-5.0); BILIRUBIN,TOTAL 0.5 mg/dL (0.1-1.0); CALCIUM, TOTAL 8.6 mg/dL (8.8-10.5); CHOL/HDL RATIO 3.4 (4.2-7.3); CREATININE 1.22 mg/dL (0.60-1.30); THYROID STIMULATING HORMONE 1.7 uIU/mL (0.36-3.74); TOTAL PROTEIN, SERUM 6.4 g/dL (6.4-8.2)
[2018-05-19 16:01] VITALS: BP 114/62
[2018-05-19] MEDS: DIVALPROEX SODIUM 500 MG ER TABLET PO SCH (20:29)
[2018-05-20 06:10] VITALS: BP 124/72
[2018-05-20] MEDS: POTASSIUM CHLORIDE 10 MEQ ER TABLET PO SCH (08:10)
[2018-05-20] MEDS: OMEPRAZOLE 20 MG CAPSULE PO SCH (08:10)
[2018-05-20] MEDS: LISINOPRIL 10 MG TABLET PO SCH (08:10)
[2018-05-20] MEDS: TAMSULOSIN HCL 0.4 MG CAPSULE PO SCH (08:10)
[2018-05-20] MEDS: ASPIRIN 81 MG CHEWABLE TABLET PO SCH (08:11)
[2018-05-20] MEDS: DOCUSATE SODIUM 100 MG CAPSULE PO SCH (08:11)
[2018-05-20] MEDS: CHOLECALCIFEROL (VIT D3) 1,000 UNITS TABLET PO SCH (08:11)
[2018-05-20] MEDS: ATENOLOL 25 MG TABLET PO SCH (08:11)
[2018-05-20] MEDS: FUROSEMIDE 20 MG TABLET PO SCH (08:11)
[2018-05-20] MEDS: PALIPERIDONE 3 MG ER TABLET PO SCH (08:11)
[2018-05-20 08:19] VITALS: BP 137/86
[2018-05-20] MEDS ORDERED: MAGNESIUM CITRATE 300 ML ORAL SOLUTION PO ONE (08:30)
[2018-05-20 19:00] VITALS: BP 133/89
[2018-05-20] MEDS: DIVALPROEX SODIUM 500 MG ER TABLET PO SCH (20:00)
[2018-05-21 06:49] VITALS: BP 131/60
[2018-05-21 08:11] VITALS: BP 124/64
[2018-05-21] MEDS: LISINOPRIL 10 MG TABLET PO SCH (08:28)
[2018-05-21] MEDS: ATENOLOL 25 MG TABLET PO SCH (08:28)
[2018-05-21] MEDS: TAMSULOSIN HCL 0.4 MG CAPSULE PO SCH (08:28)
[2018-05-21] MEDS: FUROSEMIDE 20 MG TABLET PO SCH (08:28)
[2018-05-21] MEDS: PALIPERIDONE 3 MG ER TABLET PO SCH (08:29)
[2018-05-21] MEDS: CHOLECALCIFEROL (VIT D3) 1,000 UNITS TABLET PO SCH (08:29)
[2018-05-21] MEDS: POTASSIUM CHLORIDE 10 MEQ ER TABLET PO SCH (08:29)
[2018-05-21] MEDS: ASPIRIN 81 MG CHEWABLE TABLET PO SCH (08:29)
[2018-05-21] MEDS: DOCUSATE SODIUM 100 MG CAPSULE PO SCH (08:29)
[2018-05-21] MEDS: OMEPRAZOLE 20 MG CAPSULE PO SCH (08:29)
[2018-05-21 16:07] VITALS: BP 105/65
[2018-05-21] MEDS: DIVALPROEX SODIUM 500 MG ER TABLET PO SCH (20:18)
[2018-05-22 05:30] VITALS: BP 110/68
[2018-05-22 08:32] VITALS: BP 143/89
[2018-05-22] MEDS: ATENOLOL 25 MG TABLET PO SCH (08:34)
[2018-05-22] MEDS: POTASSIUM CHLORIDE 10 MEQ ER TABLET PO SCH (08:34)
[2018-05-22] MEDS: DOCUSATE SODIUM 100 MG CAPSULE PO SCH (08:34)
[2018-05-22] MEDS: PALIPERIDONE 3 MG ER TABLET PO SCH (08:34)
[2018-05-22] MEDS: ASPIRIN 81 MG CHEWABLE TABLET PO SCH (08:34)
[2018-05-22] MEDS: CHOLECALCIFEROL (VIT D3) 1,000 UNITS TABLET PO SCH (08:34)
[2018-05-22] MEDS: FUROSEMIDE 20 MG TABLET PO SCH (08:34)
[2018-05-22] MEDS: TAMSULOSIN HCL 0.4 MG CAPSULE PO SCH (08:34)
[2018-05-22] MEDS: OMEPRAZOLE 20 MG CAPSULE PO SCH (08:34)
[2018-05-22] MEDS: LISINOPRIL 10 MG TABLET PO SCH (08:34)
[2018-05-22 16:10] VITALS: BP 131/69
[2018-05-22] MEDS: DIVALPROEX SODIUM 500 MG ER TABLET PO SCH (20:42)
[2018-05-23 05:43] VITALS: BP 142/80
[2018-05-23 08:27] VITALS: BP 122/60
[2018-05-23] MEDS: PALIPERIDONE 3 MG ER TABLET PO SCH (08:33)
[2018-05-23] MEDS: LISINOPRIL 10 MG TABLET PO SCH (08:33)
[2018-05-23] MEDS: POTASSIUM CHLORIDE 10 MEQ ER TABLET PO SCH (08:33)
[2018-05-23] MEDS: ATENOLOL 25 MG TABLET PO SCH (08:33)
[2018-05-23] MEDS: TAMSULOSIN HCL 0.4 MG CAPSULE PO SCH (08:33)
[2018-05-23] MEDS: CHOLECALCIFEROL (VIT D3) 1,000 UNITS TABLET PO SCH (08:33)
[2018-05-23] MEDS: ASPIRIN 81 MG CHEWABLE TABLET PO SCH (08:33)
[2018-05-23] MEDS: DOCUSATE SODIUM 100 MG CAPSULE PO SCH (08:33)
[2018-05-23] MEDS: FUROSEMIDE 20 MG TABLET PO SCH (08:33)
[2018-05-23] MEDS: OMEPRAZOLE 20 MG CAPSULE PO SCH (08:33)
[2018-05-23] MEDS ORDERED: POTA-9 PO (14:10)
[2018-05-23] MEDS ORDERED: FURO20 PO (14:10)
[2018-05-23 16:15] VITALS: BP 115/60
[2018-05-23] MEDS: DIVALPROEX SODIUM 500 MG ER TABLET PO SCH (20:55)
[2018-05-24] MEDS ORDERED: FURO20 PO (02:07)
[2018-05-24] MEDS ORDERED: TAMS0.4C32 PO (02:07)
[2018-05-24] MEDS ORDERED: ASPI81 PO (02:07)
[2018-05-24] MEDS ORDERED: LISI-661 PO (02:07)
[2018-05-24] MEDS ORDERED: DIVA500T52 PO (02:07)
[2018-05-24] MEDS ORDERED: OMEP20 PO (02:07)
[2018-05-24] MEDS ORDERED: KDUR10 PO (02:07)
[2018-05-24] MEDS ORDERED: PALI3 PO (02:07)
[2018-05-24] MEDS ORDERED: ATEN25TA PO (02:07)
[2018-05-24] MEDS ORDERED: VITAD1000 PO (02:07)
[2018-05-24] MEDS ORDERED: DSS100 PO (02:07)
[2018-05-24 06:04] VITALS: BP 120/70
== END 2018-05-24 06:45 | disposition home or self-care (01) | DRG 885 ==
LOC: B2X 05-18 00:06
PROVIDERS: ADMIT Psychiatry & Neurology Psychiatry; ATTEND Psychiatry & Neurology Psychiatry
DX: F20.0 Paranoid schizophrenia (principal); R45.851 Suicidal ideations; E66.9 Obesity, unspecified; G47.00 Insomnia, unspecified; J44.9 Chronic obstructive pulmonary disease, unspecified; K59.00 Constipation, unspecified; K21.9 Gastro-esophageal reflux disease without esophagitis; N40.0 Benign prostatic hyperplasia without lower urinary tract symptoms; M19.90 Unspecified osteoarthritis, unspecified site; E55.9 Vitamin D deficiency, unspecified; I10 Essential (primary) hypertension; I48.91 Unspecified atrial fibrillation; F17.200 Nicotine dependence, unspecified, uncomplicated; F12.90 Cannabis use, unspecified, uncomplicated; R60.0 Localized edema; Z56.0 Unemployment, unspecified; Z79.899 Other long term (current) drug therapy; Z59.0 Homelessness; Z68.36 Body mass index [BMI] 36.0-36.9, adult
CPT/HCPCS: 83036; 84153; 84439; 84443; 87081

== ENCOUNTER 2018-10-25 20:14 | Inpatient (IN) | payer MEDICARE, MEDICAID ==
[~2018-10-25] VITALS: Ht 193 cm; Wt 138.3 kg
[~2018-10-25 20:14] MED LIST changes: +FURO20 PO; +KDUR10 PO; -LISI-660 PO; +LISI-661 PO; -MUPI1OIN4 NS; -NALT50TA PO; -NALT50TA6 PO
[2018-10-25] MEDS ORDERED: HALOPERIDOL 5 MG TABLET PO PRN (20:30)
[2018-10-25] MEDS ORDERED: LORazepam 2 MG TABLET PO PRN (20:30)
[2018-10-25] MEDS ORDERED: ZOLPIDEM TARTRATE 10 MG TABLET PO PRN (20:30)
[2018-10-25 23:11] VITALS: BP 129/97
[2018-10-26 01:18] VITALS: BP 121/86
[2018-10-26 08:08] LABS: HEMOGLOBIN A1C 5.6 % (4.5-6.2)
[2018-10-26 08:21] LABS: BASOPHILS % (AUTO) 0.2 % (0.0-2.0); EOSINOPHILS % (AUTO) 2.1 % (1.0-6.0); HEMOGLOBIN 13.8 g/dL (13.5-17.5); LYMPHOCYTES # (AUTO) 0.9 K/uL (1.0-4.8); LYMPHOCYTES % (AUTO) 6.9 % (22.0-44.0); MEAN CORPUSCULAR HEMOGLOBIN 29.7 pg (26.0-34.0); MEAN CORPUSCULAR HGB CONC 34.6 G/dL (31.0-37.0); MEAN CORPUSCULAR VOLUME 86 fL (80-100); MONOCYTES # (AUTO) 0.7 K/uL (0.1-1.0); MONOCYTES % (AUTO) 5.1 % (2.0-9.0); NEUTROPHILS # (AUTO) 11.1 K/uL (1.8-7.7); NEUTROPHILS % (AUTO) 85.7 % (40.0-70.0); PLATELET COUNT (AUTO) 223 K/uL (150-450); RED BLOOD CELL COUNT(AUTO) 4.65 MIL/uL (4.50-5.90); RED CELL DISTRIBUTION WIDTH 13.1 % (11.5-14.5)
[2018-10-26 08:32] LABS: ALBUMIN 3.1 g/dL (3.4-5.0); BILIRUBIN,TOTAL 0.5 mg/dL (0.1-1.0); CALCIUM, TOTAL 8.8 mg/dL (8.8-10.5); CHOL/HDL RATIO 3.5 (4.2-7.3); CREATININE 1.41 mg/dL (0.60-1.30); FREE T4 (FREE THYROXINE) 0.99 ng/dL (0.76-1.46); THYROID STIMULATING HORMONE 1.32 uIU/mL (0.36-3.74); TOTAL PROTEIN, SERUM 7.3 g/dL (6.4-8.2)
[2018-10-26 09:30] VITALS: BP 140/72
[2018-10-26] MEDS: OMEPRAZOLE 20 MG CAPSULE PO SCH (09:31)
[2018-10-26] MEDS: TAMSULOSIN HCL 0.4 MG CAPSULE PO SCH (09:31)
[2018-10-26] MEDS: ASPIRIN 81 MG CHEWABLE TABLET PO SCH (09:31)
[2018-10-26] MEDS: DOCUSATE SODIUM 100 MG CAPSULE PO SCH (09:31)
[2018-10-26] MEDS: POTASSIUM CHLORIDE 10 MEQ ER TABLET PO SCH (09:31)
[2018-10-26] MEDS: ATENOLOL 25 MG TABLET PO SCH (09:31)
[2018-10-26] MEDS: FUROSEMIDE 20 MG TABLET PO SCH (09:31)
[2018-10-26] MEDS: LISINOPRIL 10 MG TABLET PO SCH (09:31)
[2018-10-26] MEDS: PALIPERIDONE 3 MG ER TABLET PO SCH (16:26)
[2018-10-26 16:30] VITALS: BP 110/62
[2018-10-26] MEDS ORDERED: BACITRACIN 28.4 GM OINTMENT TP PRN (22:30)
[2018-10-26] MEDS ORDERED: ONDANSETRON HCL 4 MG TABLET PO PRN (22:30)
[2018-10-26] MEDS ORDERED: ACETAMINOPHEN 325 MG TABLET PO PRN (22:30)
[2018-10-26] MEDS ORDERED: MAG HYDROX/AL HYDROX/SIMETH ES 30 ML SUSPENSION UDCUP PO PRN (22:30)
[2018-10-26] MEDS ORDERED: LOPERAMIDE HCL 2 MG CAPSULE PO PRN (22:30)
[2018-10-26] MEDS ORDERED: PETROLATUM,WHITE 71 GM JELLY TP PRN (22:30)
[2018-10-26] MEDS ORDERED: BENZOCAINE/MENTHOL LOZENGE MM PRN (22:30)
[2018-10-26] MEDS ORDERED: MAGNESIUM HYDROXIDE SUSPENSION 30 ML UDCUP PO PRN (22:30)
[2018-10-26] MEDS ORDERED: CloNIDine HCL 0.1 MG TABLET PO PRN (22:30)
[2018-10-26] MEDS ORDERED: ALBUTEROL SULFATE HFA 90 MCG/PUFF 8 GM INHALER IH PRN (22:30)
[2018-10-27 04:56] VITALS: BP 119/64
[2018-10-27 09:08] LABS: AMPHET/METH SCREEN,URINE NEGATIVE (NEGATIVE); BARBITURATE SCREEN, URINE NEGATIVE (NEGATIVE); BENZODIAZEPINES SCREEN,URINE NEGATIVE (NEGATIVE); CANNABINOID SCREEN,URINE NEGATIVE (NEGATIVE); COCAINE SCREEN,URINE NEGATIVE (NEGATIVE); METHADONE SCREEN, URINE NEGATIVE (NEGATIVE); OPIATE SCREEN,URINE NEGATIVE (NEGATIVE)
[2018-10-27 09:14] LABS: APPEARANCE,URINE CLEAR (CLEAR); BILIRUBIN,URINE NEGATIVE (NEGATIVE); GLUCOSE, URINE (UA) NEGATIVE (NEGATIVE); KETONES,URINE NEGATIVE (NEGATIVE); LEUKOCYTE ESTERASE ,URINE NEGATIVE (NEGATIVE); NITRATE,URINE NEGATIVE (NEGATIVE); OCCULT BLOOD,URINE NEGATIVE (NEGATIVE); PROTEIN,URINE NEGATIVE (NEGATIVE); UROBILINOGEN,URINE 0.2 mg/dL (<=1.0)
[2018-10-27 09:15] LABS: PHENCYCLIDINE SCREEN,URINE NEGATIVE (NEGATIVE)
[2018-10-27 09:30] VITALS: BP 122/80
[2018-10-27] MEDS: DOCUSATE SODIUM 100 MG CAPSULE PO SCH (09:32)
[2018-10-27] MEDS: ATENOLOL 25 MG TABLET PO SCH (09:32)
[2018-10-27] MEDS: TAMSULOSIN HCL 0.4 MG CAPSULE PO SCH (09:32)
[2018-10-27] MEDS: FUROSEMIDE 20 MG TABLET PO SCH (09:32)
[2018-10-27] MEDS: POTASSIUM CHLORIDE 10 MEQ ER TABLET PO SCH (09:32)
[2018-10-27] MEDS: LISINOPRIL 10 MG TABLET PO SCH (09:32)
[2018-10-27] MEDS: PALIPERIDONE 3 MG ER TABLET PO SCH ×2 (09:32→17:00)
[2018-10-27] MEDS: ASPIRIN 81 MG CHEWABLE TABLET PO SCH (09:32)
[2018-10-27] MEDS: OMEPRAZOLE 20 MG CAPSULE PO SCH (09:33)
[2018-10-27 16:00] VITALS: BP 108/70
[2018-10-28] VITALS (12 sets, daily range): BP systolic 104–154; BP diastolic 54–84
[2018-10-28] MEDS: ASPIRIN 81 MG CHEWABLE TABLET PO SCH (09:10)
[2018-10-28] MEDS: OMEPRAZOLE 20 MG CAPSULE PO SCH (09:10)
[2018-10-28] MEDS: PALIPERIDONE 3 MG ER TABLET PO SCH ×2 (09:10→16:42)
[2018-10-28] MEDS: TAMSULOSIN HCL 0.4 MG CAPSULE PO SCH (09:10)
[2018-10-28] MEDS: POTASSIUM CHLORIDE 10 MEQ ER TABLET PO SCH (09:10)
[2018-10-28] MEDS: DOCUSATE SODIUM 100 MG CAPSULE PO SCH (09:11)
[2018-10-28] MEDS: LISINOPRIL 10 MG TABLET PO SCH (09:11)
[2018-10-28] MEDS: ATENOLOL 25 MG TABLET PO SCH (09:11)
[2018-10-28] MEDS: FUROSEMIDE 20 MG TABLET PO SCH (09:11)
[2018-10-28] MEDS: IBUPROFEN 600 MG TABLET PO PRN (09:16)
[2018-10-29 04:14] VITALS: BP 126/78
[2018-10-29 08:25] VITALS: BP 120/72
[2018-10-29] MEDS: OMEPRAZOLE 20 MG CAPSULE PO SCH (08:41)
[2018-10-29] MEDS: TAMSULOSIN HCL 0.4 MG CAPSULE PO SCH (08:41)
[2018-10-29] MEDS: ATENOLOL 25 MG TABLET PO SCH (08:41)
[2018-10-29] MEDS: ASPIRIN 81 MG CHEWABLE TABLET PO SCH (08:41)
[2018-10-29] MEDS: LISINOPRIL 10 MG TABLET PO SCH (08:41)
[2018-10-29] MEDS: DOCUSATE SODIUM 100 MG CAPSULE PO SCH (08:41)
[2018-10-29] MEDS: PALIPERIDONE 3 MG ER TABLET PO SCH ×2 (08:41→16:05)
[2018-10-29] MEDS: POTASSIUM CHLORIDE 10 MEQ ER TABLET PO SCH (08:41)
[2018-10-29] MEDS: FUROSEMIDE 20 MG TABLET PO SCH (08:41)
[2018-10-29 15:50] VITALS: BP 119/85
[2018-10-29] MEDS: IBUPROFEN 600 MG TABLET PO PRN (15:50)
[2018-10-29 16:11] VITALS: BP 119/85
[2018-10-30 05:23] VITALS: BP 124/88
[2018-10-30] MEDS: FUROSEMIDE 20 MG TABLET PO SCH (09:00)
[2018-10-30] MEDS: PALIPERIDONE 3 MG ER TABLET PO SCH (09:00)
[2018-10-30] MEDS: ATENOLOL 25 MG TABLET PO SCH (09:00)
[2018-10-30] MEDS: TAMSULOSIN HCL 0.4 MG CAPSULE PO SCH (09:00)
[2018-10-30] MEDS: POTASSIUM CHLORIDE 10 MEQ ER TABLET PO SCH (09:00)
[2018-10-30] MEDS: LISINOPRIL 10 MG TABLET PO SCH (09:00)
[2018-10-30] MEDS: OMEPRAZOLE 20 MG CAPSULE PO SCH (09:00)
[2018-10-30] MEDS: ASPIRIN 81 MG CHEWABLE TABLET PO SCH (09:00)
[2018-10-30] MEDS: DOCUSATE SODIUM 100 MG CAPSULE PO SCH (09:00)
== END 2018-10-30 10:32 | disposition home or self-care (01) | DRG 885 ==
LOC: B2X 20:31
PROVIDERS: ADMIT Psychiatry & Neurology Child & Adolescent Psychiatry; ATTEND Psychiatry & Neurology Psychiatry
DX: F20.0 Paranoid schizophrenia (principal); J44.9 Chronic obstructive pulmonary disease, unspecified; N40.0 Benign prostatic hyperplasia without lower urinary tract symptoms; K21.9 Gastro-esophageal reflux disease without esophagitis; M19.90 Unspecified osteoarthritis, unspecified site; I48.91 Unspecified atrial fibrillation; I10 Essential (primary) hypertension; E55.9 Vitamin D deficiency, unspecified; F17.200 Nicotine dependence, unspecified, uncomplicated; F12.90 Cannabis use, unspecified, uncomplicated; G47.00 Insomnia, unspecified; E66.9 Obesity, unspecified; Z59.0 Homelessness; Z68.37 Body mass index [BMI] 37.0-37.9, adult
CPT/HCPCS: 80307; 83036; 84439; 84443; 86592; 87081

== ENCOUNTER 2018-11-08 15:30 | Inpatient (IN) | payer MEDICARE, MEDICAID ==
[~2018-11-08] VITALS: Ht 193 cm; Wt 130.1 kg
[~2018-11-08 15:30] MED LIST changes: -DIVA500T52 PO; -VITAD1000 PO
[2018-11-08 17:46] LABS: BASOPHILS % (AUTO) 0.6 % (0.0-2.0); EOSINOPHILS % (AUTO) 2.5 % (1.0-6.0); HEMATOCRIT 41.2 % (41-53); HEMOGLOBIN 13.4 g/dL (13.5-17.5); LYMPHOCYTES # (AUTO) 1.4 K/uL (1.0-4.8); LYMPHOCYTES % (AUTO) 14.5 % (22.0-44.0); MEAN CORPUSCULAR HEMOGLOBIN 28.2 pg (26.0-34.0); MEAN CORPUSCULAR HGB CONC 32.5 G/dL (31.0-37.0); MEAN CORPUSCULAR VOLUME 87 fL (80-100); MONOCYTES # (AUTO) 0.7 K/uL (0.1-1.0); MONOCYTES % (AUTO) 6.8 % (2.0-9.0); NEUTROPHILS # (AUTO) 7.5 K/uL (1.8-7.7); NEUTROPHILS % (AUTO) 75.6 % (40.0-70.0); PLATELET COUNT (AUTO) 229 K/uL (150-450); RED BLOOD CELL COUNT(AUTO) 4.76 MIL/uL (4.50-5.90); RED CELL DISTRIBUTION WIDTH 13.5 % (11.5-14.5)
[2018-11-08 18:00] LABS: ANION GAP 6 mmol/L (8-16); CALCIUM, TOTAL 8.4 mg/dL (8.8-10.5); CARBON DIOXIDE 28 mmol/L (22-29); CHLORIDE 106 mmol/L (98-107); CREATININE 1.06 mg/dL (0.60-1.30); GLOMERULAR FILTR. RATE CALC > 60 mL/min (>60); GLUCOSE,RANDOM 103 mg/dL (70-110); POTASSIUM 3.9 mmol/L (3.5-5.1); SODIUM SERUM 140 mmol/L (136-145); UREA NITROGEN, BLOOD 17 mg/dL (7-18)
[2018-11-08 18:14] LABS: ALANINE AMINOTRANSFERASE 18 U/L (12-78); ALBUMIN 3.1 g/dL (3.4-5.0); ALKALINE PHOSPHATASE 100 U/L (46-116); ASPARTATE AMINOTRANSFERASE 19 U/L (15-37); BILIRUBIN,TOTAL 0.4 mg/dL (0.1-1.0); THYROID STIMULATING HORMONE 1.22 uIU/mL (0.36-3.74); TOTAL PROTEIN, SERUM 7.2 g/dL (6.4-8.2)
[2018-11-08] MEDS ORDERED: HALOPERIDOL 5 MG TABLET PO PRN (20:15)
[2018-11-08] MEDS ORDERED: LORazepam 2 MG TABLET PO PRN (20:15)
[2018-11-08] MEDS ORDERED: ZOLPIDEM TARTRATE 10 MG TABLET PO PRN (20:15)
[2018-11-08 20:40] VITALS: BP 151/102
[2018-11-08] MEDS ORDERED: ACETAMINOPHEN 325 MG TABLET PO PRN (22:15)
[2018-11-08] MEDS ORDERED: IBUPROFEN 400 MG TABLET PO PRN (22:15)
[2018-11-09 03:15] VITALS: BP 142/71
[2018-11-09] MEDS: POTASSIUM CHLORIDE 10 MEQ ER TABLET PO SCH (08:08)
[2018-11-09] MEDS: ATENOLOL 25 MG TABLET PO SCH (08:08)
[2018-11-09] MEDS: OMEPRAZOLE 20 MG CAPSULE PO SCH (08:08)
[2018-11-09] MEDS: LISINOPRIL 10 MG TABLET PO SCH (08:08)
[2018-11-09] MEDS: DOCUSATE SODIUM 100 MG CAPSULE PO SCH (08:09)
[2018-11-09] MEDS: ASPIRIN 81 MG CHEWABLE TABLET PO SCH (08:09)
[2018-11-09] MEDS: TAMSULOSIN HCL 0.4 MG CAPSULE PO SCH (08:09)
[2018-11-09] MEDS: FUROSEMIDE 20 MG TABLET PO SCH (08:09)
[2018-11-09 14:58] VITALS: BP 146/100
[2018-11-09 16:00] VITALS: BP 110/64
[2018-11-09] MEDS ORDERED: ALBUTEROL SULFATE HFA 90 MCG/PUFF 8 GM INHALER IH PRN (21:30)
[2018-11-09] MEDS ORDERED: ONDANSETRON HCL 4 MG TABLET PO PRN (21:30)
[2018-11-09] MEDS ORDERED: BACITRACIN 28.4 GM OINTMENT TP PRN (21:30)
[2018-11-09] MEDS ORDERED: LOPERAMIDE HCL 2 MG CAPSULE PO PRN (21:30)
[2018-11-09] MEDS ORDERED: MAGNESIUM HYDROXIDE SUSPENSION 30 ML UDCUP PO PRN (21:30)
[2018-11-09] MEDS ORDERED: BENZOCAINE/MENTHOL LOZENGE MM PRN (21:30)
[2018-11-09] MEDS ORDERED: PETROLATUM,WHITE 71 GM JELLY TP PRN (21:30)
[2018-11-09] MEDS ORDERED: MAG HYDROX/AL HYDROX/SIMETH ES 30 ML SUSPENSION UDCUP PO PRN (21:30)
[2018-11-09] MEDS ORDERED: CloNIDine HCL 0.1 MG TABLET PO PRN (21:30)
[2018-11-10 08:44] VITALS: BP 133/75
[2018-11-10] MEDS: ASPIRIN 81 MG CHEWABLE TABLET PO SCH (08:52)
[2018-11-10] MEDS: LISINOPRIL 10 MG TABLET PO SCH (08:52)
[2018-11-10] MEDS: POTASSIUM CHLORIDE 10 MEQ ER TABLET PO SCH (08:52)
[2018-11-10] MEDS: TAMSULOSIN HCL 0.4 MG CAPSULE PO SCH (08:52)
[2018-11-10] MEDS: OMEPRAZOLE 20 MG CAPSULE PO SCH (08:52)
[2018-11-10] MEDS: ATENOLOL 25 MG TABLET PO SCH (08:52)
[2018-11-10] MEDS: FUROSEMIDE 20 MG TABLET PO SCH (08:52)
[2018-11-10] MEDS: PALIPERIDONE 3 MG ER TABLET PO SCH ×2 (08:52→16:30)
[2018-11-10] MEDS: DOCUSATE SODIUM 100 MG CAPSULE PO SCH (08:52)
[2018-11-10 16:08] VITALS: BP 120/72
[2018-11-11 05:30] VITALS: BP 124/64
[2018-11-11 08:05] VITALS: BP 136/90
[2018-11-11] MEDS: LISINOPRIL 10 MG TABLET PO SCH (10:02)
[2018-11-11] MEDS: FUROSEMIDE 20 MG TABLET PO SCH (10:02)
[2018-11-11] MEDS: OMEPRAZOLE 20 MG CAPSULE PO SCH (10:02)
[2018-11-11] MEDS: ATENOLOL 25 MG TABLET PO SCH (10:02)
[2018-11-11] MEDS: POTASSIUM CHLORIDE 10 MEQ ER TABLET PO SCH (10:03)
[2018-11-11] MEDS: TAMSULOSIN HCL 0.4 MG CAPSULE PO SCH (10:03)
[2018-11-11] MEDS: ASPIRIN 81 MG CHEWABLE TABLET PO SCH (10:03)
[2018-11-11] MEDS: PALIPERIDONE 3 MG ER TABLET PO SCH ×2 (10:03→16:32)
[2018-11-11] MEDS: DOCUSATE SODIUM 100 MG CAPSULE PO SCH (10:03)
[2018-11-11 19:24] VITALS: BP 127/68
[2018-11-12 06:38] VITALS: BP 128/63
[2018-11-12 08:25] VITALS: BP 114/60
[2018-11-12] MEDS: ASPIRIN 81 MG CHEWABLE TABLET PO SCH (08:36)
[2018-11-12] MEDS: OMEPRAZOLE 20 MG CAPSULE PO SCH (08:36)
[2018-11-12] MEDS: DOCUSATE SODIUM 100 MG CAPSULE PO SCH (08:36)
[2018-11-12] MEDS: LISINOPRIL 10 MG TABLET PO SCH (08:38)
[2018-11-12] MEDS: ATENOLOL 25 MG TABLET PO SCH (08:38)
[2018-11-12] MEDS: PALIPERIDONE 3 MG ER TABLET PO SCH ×2 (08:39→16:52)
[2018-11-12] MEDS: TAMSULOSIN HCL 0.4 MG CAPSULE PO SCH (08:40)
[2018-11-12] MEDS: POTASSIUM CHLORIDE 10 MEQ ER TABLET PO SCH (08:40)
[2018-11-12] MEDS: FUROSEMIDE 20 MG TABLET PO SCH (08:40)
[2018-11-12 17:00] VITALS: BP 125/65
[2018-11-13 08:30] VITALS: BP 135/68
[2018-11-13] MEDS: OMEPRAZOLE 20 MG CAPSULE PO SCH (09:33)
[2018-11-13] MEDS: POTASSIUM CHLORIDE 10 MEQ ER TABLET PO SCH (09:33)
[2018-11-13] MEDS: TAMSULOSIN HCL 0.4 MG CAPSULE PO SCH (09:33)
[2018-11-13] MEDS: DOCUSATE SODIUM 100 MG CAPSULE PO SCH (09:33)
[2018-11-13] MEDS: ATENOLOL 25 MG TABLET PO SCH (09:34)
[2018-11-13] MEDS: FUROSEMIDE 20 MG TABLET PO SCH (09:34)
[2018-11-13] MEDS: ASPIRIN 81 MG CHEWABLE TABLET PO SCH (09:34)
[2018-11-13] MEDS: PALIPERIDONE 3 MG ER TABLET PO SCH ×2 (09:34→16:36)
[2018-11-13] MEDS: LISINOPRIL 10 MG TABLET PO SCH (09:34)
[2018-11-14 02:30] VITALS: BP 132/69
[2018-11-14] MEDS: POTASSIUM CHLORIDE 10 MEQ ER TABLET PO SCH (08:58)
[2018-11-14] MEDS: ATENOLOL 25 MG TABLET PO SCH (08:59)
[2018-11-14] MEDS: OMEPRAZOLE 20 MG CAPSULE PO SCH (08:59)
[2018-11-14] MEDS: LISINOPRIL 10 MG TABLET PO SCH (08:59)
[2018-11-14] MEDS: FUROSEMIDE 20 MG TABLET PO SCH (08:59)
[2018-11-14] MEDS: DOCUSATE SODIUM 100 MG CAPSULE PO SCH (09:00)
[2018-11-14] MEDS: TAMSULOSIN HCL 0.4 MG CAPSULE PO SCH (09:00)
[2018-11-14] MEDS: ASPIRIN 81 MG CHEWABLE TABLET PO SCH (09:00)
[2018-11-14] MEDS: PALIPERIDONE 3 MG ER TABLET PO SCH ×2 (09:00→16:07)
[2018-11-14 09:51] VITALS: BP 138/85
[2018-11-14 17:22] VITALS: BP 111/81
[2018-11-15] MEDS: ASPIRIN 81 MG CHEWABLE TABLET PO SCH (08:24)
[2018-11-15] MEDS: ATENOLOL 25 MG TABLET PO SCH ×3 (08:25→10:30)
[2018-11-15] MEDS: PALIPERIDONE 3 MG ER TABLET PO SCH ×2 (08:25→16:31)
[2018-11-15] MEDS: TAMSULOSIN HCL 0.4 MG CAPSULE PO SCH (08:25)
[2018-11-15] MEDS: OMEPRAZOLE 20 MG CAPSULE PO SCH (08:25)
[2018-11-15] MEDS: DOCUSATE SODIUM 100 MG CAPSULE PO SCH (08:31)
[2018-11-15] MEDS: LISINOPRIL 10 MG TABLET PO SCH ×2 (09:00→10:30)
[2018-11-15] MEDS: FUROSEMIDE 20 MG TABLET PO SCH (10:25)
[2018-11-15] MEDS: POTASSIUM CHLORIDE 10 MEQ ER TABLET PO SCH (10:25)
[2018-11-15 11:26] VITALS: BP 114/51
[2018-11-16] MEDS: TAMSULOSIN HCL 0.4 MG CAPSULE PO SCH (08:44)
[2018-11-16] MEDS: FUROSEMIDE 20 MG TABLET PO SCH (08:44)
[2018-11-16] MEDS: PALIPERIDONE 3 MG ER TABLET PO SCH ×2 (08:44→16:18)
[2018-11-16] MEDS: OMEPRAZOLE 20 MG CAPSULE PO SCH (08:44)
[2018-11-16] MEDS: DOCUSATE SODIUM 100 MG CAPSULE PO SCH (08:44)
[2018-11-16] MEDS: POTASSIUM CHLORIDE 10 MEQ ER TABLET PO SCH (08:44)
[2018-11-16] MEDS: ASPIRIN 81 MG CHEWABLE TABLET PO SCH (08:45)
[2018-11-16] MEDS: LISINOPRIL 10 MG TABLET PO SCH (09:00)
[2018-11-16] MEDS: ATENOLOL 25 MG TABLET PO SCH (09:00)
[2018-11-16 10:47] VITALS: BP 86/53
[2018-11-16 16:00] VITALS: BP 93/54
[2018-11-17] MEDS: TAMSULOSIN HCL 0.4 MG CAPSULE PO SCH (08:58)
[2018-11-17] MEDS: POTASSIUM CHLORIDE 10 MEQ ER TABLET PO SCH (08:58)
[2018-11-17] MEDS: FUROSEMIDE 20 MG TABLET PO SCH (08:58)
[2018-11-17] MEDS: LISINOPRIL 10 MG TABLET PO SCH (08:58)
[2018-11-17] MEDS: OMEPRAZOLE 20 MG CAPSULE PO SCH (08:58)
[2018-11-17] MEDS: PALIPERIDONE 3 MG ER TABLET PO SCH ×2 (08:58→16:53)
[2018-11-17] MEDS: ATENOLOL 25 MG TABLET PO SCH (08:58)
[2018-11-17] MEDS: DOCUSATE SODIUM 100 MG CAPSULE PO SCH (08:59)
[2018-11-17] MEDS: ASPIRIN 81 MG CHEWABLE TABLET PO SCH (08:59)
[2018-11-17 09:05] VITALS: BP 127/69
[2018-11-17 17:13] VITALS: BP 98/73
[2018-11-18] MEDS: PALIPERIDONE 3 MG ER TABLET PO SCH ×2 (08:35→16:38)
[2018-11-18] MEDS: OMEPRAZOLE 20 MG CAPSULE PO SCH (08:35)
[2018-11-18] MEDS: FUROSEMIDE 20 MG TABLET PO SCH ×2 (08:35→08:56)
[2018-11-18] MEDS: ATENOLOL 25 MG TABLET PO SCH ×2 (08:36→08:56)
[2018-11-18] MEDS: DOCUSATE SODIUM 100 MG CAPSULE PO SCH ×2 (08:36→08:55)
[2018-11-18] MEDS: TAMSULOSIN HCL 0.4 MG CAPSULE PO SCH ×2 (08:36→08:55)
[2018-11-18] MEDS: ASPIRIN 81 MG CHEWABLE TABLET PO SCH (08:36)
[2018-11-18] MEDS: LISINOPRIL 10 MG TABLET PO SCH ×2 (08:37→08:56)
[2018-11-18] MEDS: POTASSIUM CHLORIDE 10 MEQ ER TABLET PO SCH (08:44)
[2018-11-18 10:01] VITALS: BP 99/62
[2018-11-18 16:20] VITALS: BP 91/67
[2018-11-19] MEDS: TAMSULOSIN HCL 0.4 MG CAPSULE PO SCH (09:00)
[2018-11-19] MEDS: PALIPERIDONE 3 MG ER TABLET PO SCH ×2 (09:34→17:13)
[2018-11-19] MEDS: ATENOLOL 25 MG TABLET PO SCH (09:35)
[2018-11-19] MEDS: LISINOPRIL 10 MG TABLET PO SCH (09:35)
[2018-11-19] MEDS: OMEPRAZOLE 20 MG CAPSULE PO SCH (09:35)
[2018-11-19] MEDS: POTASSIUM CHLORIDE 10 MEQ ER TABLET PO SCH (09:35)
[2018-11-19] MEDS: ASPIRIN 81 MG CHEWABLE TABLET PO SCH (09:35)
[2018-11-19] MEDS: FUROSEMIDE 20 MG TABLET PO SCH (09:35)
[2018-11-19] MEDS: DOCUSATE SODIUM 100 MG CAPSULE PO SCH (09:36)
[2018-11-19 11:25] VITALS: BP 92/50
[2018-11-20] MEDS: DOCUSATE SODIUM 100 MG CAPSULE PO SCH (09:00)
[2018-11-20] MEDS: OMEPRAZOLE 20 MG CAPSULE PO SCH (09:23)
[2018-11-20] MEDS: ASPIRIN 81 MG CHEWABLE TABLET PO SCH (09:23)
[2018-11-20] MEDS: TAMSULOSIN HCL 0.4 MG CAPSULE PO SCH (09:24)
[2018-11-20] MEDS: POTASSIUM CHLORIDE 10 MEQ ER TABLET PO SCH (09:24)
[2018-11-20] MEDS: FUROSEMIDE 20 MG TABLET PO SCH (09:24)
[2018-11-20] MEDS: PALIPERIDONE 3 MG ER TABLET PO SCH ×2 (09:24→16:47)
[2018-11-20 09:51] VITALS: BP 113/74
[2018-11-20 21:29] VITALS: BP 95/57
[2018-11-21 05:43] VITALS: BP 126/61
[2018-11-21] MEDS: ASPIRIN 81 MG CHEWABLE TABLET PO SCH (08:22)
[2018-11-21] MEDS: OMEPRAZOLE 20 MG CAPSULE PO SCH (08:22)
[2018-11-21] MEDS: FUROSEMIDE 20 MG TABLET PO SCH (08:22)
[2018-11-21] MEDS: POTASSIUM CHLORIDE 10 MEQ ER TABLET PO SCH (08:22)
[2018-11-21] MEDS: TAMSULOSIN HCL 0.4 MG CAPSULE PO SCH (08:22)
[2018-11-21] MEDS: PALIPERIDONE 3 MG ER TABLET PO SCH ×2 (08:23→16:28)
[2018-11-21] MEDS: DOCUSATE SODIUM 100 MG CAPSULE PO SCH (09:00)
[2018-11-21 09:33] VITALS: BP 125/61
[2018-11-21 18:20] VITALS: BP 119/75
[2018-11-22 00:05] VITALS: BP 116/66
[2018-11-22] MEDS: DOCUSATE SODIUM 100 MG CAPSULE PO SCH (09:00)
[2018-11-22] MEDS: PALIPERIDONE 3 MG ER TABLET PO SCH ×2 (09:02→16:18)
[2018-11-22] MEDS: TAMSULOSIN HCL 0.4 MG CAPSULE PO SCH (09:02)
[2018-11-22] MEDS: OMEPRAZOLE 20 MG CAPSULE PO SCH (09:02)
[2018-11-22] MEDS: FUROSEMIDE 20 MG TABLET PO SCH (09:02)
[2018-11-22] MEDS: ASPIRIN 81 MG CHEWABLE TABLET PO SCH (09:02)
[2018-11-22] MEDS: POTASSIUM CHLORIDE 10 MEQ ER TABLET PO SCH (09:02)
[2018-11-22 16:57] VITALS: BP 131/88
[2018-11-23 02:20] VITALS: BP 111/64
[2018-11-23] MEDS: FUROSEMIDE 20 MG TABLET PO SCH (08:27)
[2018-11-23] MEDS: ASPIRIN 81 MG CHEWABLE TABLET PO SCH (08:27)
[2018-11-23] MEDS: OMEPRAZOLE 20 MG CAPSULE PO SCH (08:27)
[2018-11-23] MEDS: PALIPERIDONE 3 MG ER TABLET PO SCH ×2 (08:28→16:45)
[2018-11-23] MEDS: TAMSULOSIN HCL 0.4 MG CAPSULE PO SCH (08:28)
[2018-11-23] MEDS: POTASSIUM CHLORIDE 10 MEQ ER TABLET PO SCH (08:28)
[2018-11-23] MEDS: DOCUSATE SODIUM 100 MG CAPSULE PO SCH (08:28)
[2018-11-23 09:09] VITALS: BP 127/81
[2018-11-23 16:00] VITALS: BP 137/88
[2018-11-24] MEDS ORDERED: RISP3TAB44 PO (06:23)
[2018-11-24 06:40] VITALS: BP 107/72
[2018-11-24 08:45] VITALS: BP 125/73
[2018-11-24] MEDS ORDERED: RisperiDONE 3 MG TABLET PO SCH (09:00)
[2018-11-24] MEDS: DOCUSATE SODIUM 100 MG CAPSULE PO SCH (09:00)
[2018-11-24] MEDS: FUROSEMIDE 20 MG TABLET PO SCH (09:24)
[2018-11-24] MEDS: TAMSULOSIN HCL 0.4 MG CAPSULE PO SCH (09:24)
[2018-11-24] MEDS: OMEPRAZOLE 20 MG CAPSULE PO SCH (09:24)
[2018-11-24] MEDS: ASPIRIN 81 MG CHEWABLE TABLET PO SCH (09:24)
[2018-11-24] MEDS: POTASSIUM CHLORIDE 10 MEQ ER TABLET PO SCH (09:24)
== END 2018-11-24 11:45 | disposition home or self-care (01) | DRG 885 ==
LOC: EMS 15:32 → 3EX 19:55
PROVIDERS: ADMIT Psychiatry & Neurology Psychiatry; ATTEND Psychiatry & Neurology Psychiatry
DX: F25.9 Schizoaffective disorder, unspecified (principal); E66.9 Obesity, unspecified; E55.9 Vitamin D deficiency, unspecified; F17.200 Nicotine dependence, unspecified, uncomplicated; G47.00 Insomnia, unspecified; I10 Essential (primary) hypertension; I48.91 Unspecified atrial fibrillation; J44.9 Chronic obstructive pulmonary disease, unspecified; K21.9 Gastro-esophageal reflux disease without esophagitis; M19.90 Unspecified osteoarthritis, unspecified site; F31.9 Bipolar disorder, unspecified; F12.90 Cannabis use, unspecified, uncomplicated; N40.0 Benign prostatic hyperplasia without lower urinary tract symptoms; R45.850 Homicidal ideations; Z59.0 Homelessness; Z82.49 Family history of ischemic heart disease and other diseases of the circulatory system; Z68.34 Body mass index [BMI] 34.0-34.9, adult
CPT/HCPCS: 84443; 87081; G0378; G0480

== ENCOUNTER 2018-11-26 03:18 | Emergency (ER) | payer MEDICARE, OTHER ==
[~2018-11-26] VITALS: Ht 185.4 cm; Wt 127.3 kg
[~2018-11-26 03:18] MED LIST changes: +RISP3TAB44 PO
[2018-11-26 05:41] VITALS: BP 120/76
== END 2018-11-26 06:03 | disposition home or self-care (01) ==
LOC: EMS 03:19
DX: I83.91 Asymptomatic varicose veins of right lower extremity (principal); F31.9 Bipolar disorder, unspecified; F20.9 Schizophrenia, unspecified; I10 Essential (primary) hypertension; F17.210 Nicotine dependence, cigarettes, uncomplicated; Z59.0 Homelessness
CPT/HCPCS: 93971

== ENCOUNTER 2018-11-27 16:55 | Inpatient (IN) | payer MEDICARE, MEDICAID ==
[~2018-11-27] VITALS: Ht 193 cm; Wt 131.1 kg
[2018-11-27] MEDS ORDERED: ZOLPIDEM TARTRATE 10 MG TABLET PO PRN (17:15)
[2018-11-27] MEDS ORDERED: LORazepam 2 MG TABLET PO PRN (17:15)
[2018-11-27] MEDS ORDERED: HALOPERIDOL 5 MG TABLET PO PRN (17:15)
[2018-11-27 17:39] VITALS: BP 129/62
[2018-11-27 19:48] VITALS: BP 153/75
[2018-11-27] MEDS: LISINOPRIL 10 MG TABLET PO SCH (20:44)
[2018-11-27] MEDS: IBUPROFEN 400 MG TABLET PO PRN (20:44)
[2018-11-27] MEDS: ATENOLOL 25 MG TABLET PO SCH (21:33)
[2018-11-27 22:09] VITALS: BP 121/73
[2018-11-28 02:18] VITALS: BP 133/78
[2018-11-28] MEDS: IBUPROFEN 400 MG TABLET PO PRN ×3 (02:52→23:01)
[2018-11-28 07:51] LABS: BASOPHILS % (AUTO) 0.8 % (0.0-2.0); EOSINOPHILS % (AUTO) 4.7 % (1.0-6.0); HEMATOCRIT 36.8 % (41-53); HEMOGLOBIN 11.9 g/dL (13.5-17.5); LYMPHOCYTES # (AUTO) 1.6 K/uL (1.0-4.8); MEAN CORPUSCULAR HGB CONC 32.3 G/dL (31.0-37.0); MEAN CORPUSCULAR VOLUME 87 fL (80-100); MONOCYTES # (AUTO) 0.5 K/uL (0.1-1.0); MONOCYTES % (AUTO) 7.8 % (2.0-9.0); NEUTROPHILS # (AUTO) 4.4 K/uL (1.8-7.7); NEUTROPHILS % (AUTO) 63.7 % (40.0-70.0); PLATELET COUNT (AUTO) 173 K/uL (150-450); RED BLOOD CELL COUNT(AUTO) 4.25 MIL/uL (4.50-5.90); RED CELL DISTRIBUTION WIDTH 13.8 % (11.5-14.5)
[2018-11-28 07:59] LABS: HEMOGLOBIN A1C 6.2 % (4.5-6.2)
[2018-11-28 08:24] LABS: ALBUMIN 2.7 g/dL (3.4-5.0); BILIRUBIN,TOTAL 0.3 mg/dL (0.1-1.0); CALCIUM, TOTAL 8.5 mg/dL (8.8-10.5); CHOL/HDL RATIO 3.2 (4.2-7.3); CREATININE 1.26 mg/dL (0.60-1.30); FREE T4 (FREE THYROXINE) 0.84 ng/dL (0.76-1.46); POTASSIUM 4.4 mmol/L (3.5-5.1); THYROID STIMULATING HORMONE 1.62 uIU/mL (0.36-3.74); TOTAL PROTEIN, SERUM 6.1 g/dL (6.4-8.2)
[2018-11-28 09:03] VITALS: BP 102/61
[2018-11-28] MEDS: ATENOLOL 25 MG TABLET PO SCH (09:12)
[2018-11-28] MEDS: LISINOPRIL 10 MG TABLET PO SCH (09:13)
[2018-11-28] MEDS: RisperiDONE 3 MG TABLET PO SCH (16:20)
[2018-11-28 16:42] VITALS: BP 112/57
[2018-11-29 00:05] VITALS: BP 110/68
[2018-11-29 04:58] VITALS: BP 118/72
[2018-11-29] MEDS: LISINOPRIL 10 MG TABLET PO SCH (08:05)
[2018-11-29] MEDS: RisperiDONE 3 MG TABLET PO SCH ×2 (08:05→16:46)
[2018-11-29] MEDS: ATENOLOL 25 MG TABLET PO SCH (08:05)
[2018-11-29 08:11] VITALS: BP 108/64
[2018-11-29] MEDS: IBUPROFEN 400 MG TABLET PO PRN ×2 (13:44→22:51)
[2018-11-29 13:55] VITALS: BP 117/83
[2018-11-29 16:37] VITALS: BP 117/64
[2018-11-29 22:48] VITALS: BP 126/85
[2018-11-30] MEDS: IBUPROFEN 400 MG TABLET PO PRN ×2 (05:20→22:07)
[2018-11-30 05:24] VITALS: BP 120/81
[2018-11-30 08:36] VITALS: BP 131/79
[2018-11-30] MEDS: RisperiDONE 3 MG TABLET PO SCH ×2 (08:48→16:48)
[2018-11-30] MEDS: ATENOLOL 25 MG TABLET PO SCH (08:48)
[2018-11-30] MEDS: LISINOPRIL 10 MG TABLET PO SCH (08:49)
[2018-11-30 12:55] VITALS: BP 118/60
[2018-11-30 16:06] VITALS: BP 118/75
[2018-12-01 01:36] VITALS: BP 112/63
[2018-12-01] MEDS: IBUPROFEN 400 MG TABLET PO PRN ×2 (04:13→22:49)
[2018-12-01] MEDS: LISINOPRIL 10 MG TABLET PO SCH (08:19)
[2018-12-01] MEDS: ATENOLOL 25 MG TABLET PO SCH (08:19)
[2018-12-01] MEDS: RisperiDONE 3 MG TABLET PO SCH ×2 (08:19→16:59)
[2018-12-01 08:22] VITALS: BP 108/62
[2018-12-01] MEDS ORDERED: DENTURE ADHESIVE 68 GM CREAM DT PRN (15:00)
[2018-12-01 16:40] VITALS: BP 140/90
[2018-12-02 03:09] VITALS: BP 132/86
[2018-12-02 08:32] VITALS: BP 138/72
[2018-12-02] MEDS: LISINOPRIL 10 MG TABLET PO SCH (09:23)
[2018-12-02] MEDS: RisperiDONE 3 MG TABLET PO SCH ×2 (09:23→16:07)
[2018-12-02] MEDS: ATENOLOL 25 MG TABLET PO SCH (09:24)
[2018-12-02] MEDS: FERROUS SULFATE 325 MG EC TABLET PO SCH (16:07)
[2018-12-02] MEDS: IBUPROFEN 400 MG TABLET PO PRN (16:11)
[2018-12-02 16:35] VITALS: BP 158/90
[2018-12-02 22:19] VITALS: BP 139/76
[2018-12-03 00:38] VITALS: BP 138/78
[2018-12-03] MEDS: FERROUS SULFATE 325 MG EC TABLET PO SCH ×2 (06:59→17:35)
[2018-12-03 08:23] VITALS: BP 111/68
[2018-12-03] MEDS: RisperiDONE 3 MG TABLET PO SCH ×2 (09:36→17:35)
[2018-12-03] MEDS: ATENOLOL 25 MG TABLET PO SCH (09:36)
[2018-12-03] MEDS: LISINOPRIL 10 MG TABLET PO SCH (09:36)
[2018-12-03 16:24] VITALS: BP 126/87
[2018-12-04 00:47] VITALS: BP 128/92
[2018-12-04] MEDS: FERROUS SULFATE 325 MG EC TABLET PO SCH ×2 (07:00→16:31)
[2018-12-04 08:16] VITALS: BP 121/75
[2018-12-04] MEDS: RisperiDONE 3 MG TABLET PO SCH ×2 (08:25→16:31)
[2018-12-04] MEDS: ATENOLOL 25 MG TABLET PO SCH (08:25)
[2018-12-04] MEDS: LISINOPRIL 10 MG TABLET PO SCH (08:25)
[2018-12-04 10:33] VITALS: BP 123/73
[2018-12-04] MEDS: IBUPROFEN 400 MG TABLET PO PRN (10:33)
[2018-12-04 16:00] VITALS: BP 121/94
[2018-12-05 00:07] VITALS: BP 118/80
[2018-12-05] MEDS: IBUPROFEN 400 MG TABLET PO PRN (00:07)
[2018-12-05] MEDS: FERROUS SULFATE 325 MG EC TABLET PO SCH ×2 (07:06→16:06)
[2018-12-05 08:07] VITALS: BP 152/98
[2018-12-05] MEDS: RisperiDONE 3 MG TABLET PO SCH ×2 (09:02→16:06)
[2018-12-05] MEDS: ATENOLOL 25 MG TABLET PO SCH (09:02)
[2018-12-05] MEDS: LISINOPRIL 10 MG TABLET PO SCH (09:02)
[2018-12-05 11:01] VITALS: BP 116/77
[2018-12-05 16:21] VITALS: BP 134/85
[2018-12-05] MEDS ORDERED: LISI-661 PO (22:10)
[2018-12-05] MEDS ORDERED: FERR-89 PO (22:10)
[2018-12-05] MEDS ORDERED: ATEN25TA PO (22:10)
[2018-12-05] MEDS ORDERED: RISP3 PO (22:11)
[2018-12-06 04:59] VITALS: BP 123/86
[2018-12-06] MEDS: IBUPROFEN 400 MG TABLET PO PRN (05:00)
[2018-12-06] MEDS: FERROUS SULFATE 325 MG EC TABLET PO SCH ×2 (07:08→17:00)
[2018-12-06 08:24] VITALS: BP 145/74
[2018-12-06] MEDS: RisperiDONE 3 MG TABLET PO SCH ×2 (08:40→17:00)
[2018-12-06] MEDS: LISINOPRIL 10 MG TABLET PO SCH (08:40)
[2018-12-06] MEDS: ATENOLOL 25 MG TABLET PO SCH (08:40)
[2018-12-06 16:17] VITALS: BP 154/79
[2018-12-07 00:10] VITALS: BP 138/72
[2018-12-07] MEDS: IBUPROFEN 400 MG TABLET PO PRN ×2 (00:11→06:55)
[2018-12-07] MEDS: FERROUS SULFATE 325 MG EC TABLET PO SCH ×2 (06:50→17:32)
[2018-12-07 06:52] VITALS: BP 118/70
[2018-12-07 08:24] VITALS: BP 123/64
[2018-12-07] MEDS: LISINOPRIL 10 MG TABLET PO SCH (09:05)
[2018-12-07] MEDS: RisperiDONE 3 MG TABLET PO SCH ×2 (09:05→17:32)
[2018-12-07] MEDS: ATENOLOL 25 MG TABLET PO SCH (09:06)
[2018-12-07 16:07] VITALS: BP 118/85
[2018-12-08 00:55] VITALS: BP 120/81
[2018-12-08 00:56] VITALS: BP 115/78
[2018-12-08] MEDS: IBUPROFEN 400 MG TABLET PO PRN ×2 (01:02→07:11)
[2018-12-08] MEDS: FERROUS SULFATE 325 MG EC TABLET PO SCH (07:00)
[2018-12-08 07:05] VITALS: BP 124/83
== END 2018-12-08 07:15 | disposition home or self-care (01) | DRG 885 ==
LOC: B2S 17:11
PROVIDERS: ADMIT Psychiatry & Neurology Psychiatry; ATTEND Psychiatry & Neurology Psychiatry
DX: F25.9 Schizoaffective disorder, unspecified (principal); R45.851 Suicidal ideations; Z28.21 Immunization not carried out because of patient refusal; E55.9 Vitamin D deficiency, unspecified; E66.9 Obesity, unspecified; F17.200 Nicotine dependence, unspecified, uncomplicated; G47.00 Insomnia, unspecified; I10 Essential (primary) hypertension; I48.91 Unspecified atrial fibrillation; J44.9 Chronic obstructive pulmonary disease, unspecified; K21.9 Gastro-esophageal reflux disease without esophagitis; M19.90 Unspecified osteoarthritis, unspecified site; N40.0 Benign prostatic hyperplasia without lower urinary tract symptoms; R45.850 Homicidal ideations; Z59.0 Homelessness; F12.90 Cannabis use, unspecified, uncomplicated; Z68.35 Body mass index [BMI] 35.0-35.9, adult
CPT/HCPCS: 83036; 84439; 84443; 87081

== ENCOUNTER 2019-03-01 03:38 | Emergency (ER) | payer MEDICARE, OTHER ==
[~2019-03-01] VITALS: Ht 185.4 cm; Wt 127.3 kg
[~2019-03-01 03:38] MED LIST changes: -ASPI81 PO; -DSS100 PO; +FERR-89 PO; -FURO20 PO; -KDUR10 PO; -OMEP20 PO; -PALI3 PO; +RISP3 PO; -RISP3TAB44 PO; -TAMS0.4C32 PO
[2019-03-01] MEDS ORDERED: KETOROLAC TROMETHAMINE 30 MG/ML VIAL IM ONE (06:15)
[2019-03-01 07:41] VITALS: BP 150/92
== END 2019-03-01 08:12 | disposition home or self-care (01) ==
LOC: EMS 03:40
DX: I83.813 Varicose veins of bilateral lower extremities with pain (principal); I10 Essential (primary) hypertension; I48.91 Unspecified atrial fibrillation; F31.9 Bipolar disorder, unspecified; F20.9 Schizophrenia, unspecified; F17.210 Nicotine dependence, cigarettes, uncomplicated; Z59.0 Homelessness
CPT/HCPCS: 96372; 99283; J1885

== ENCOUNTER 2019-03-03 12:36 | Inpatient (IN) | payer MEDICARE, MEDICAID ==
[~2019-03-03] VITALS: Ht 193 cm; Wt 125.2 kg
[2019-03-03] MEDS ORDERED: ZOLPIDEM TARTRATE 10 MG TABLET PO PRN (17:00)
[2019-03-03] MEDS ORDERED: LORazepam 2 MG TABLET PO PRN (17:00)
[2019-03-03] MEDS ORDERED: HALOPERIDOL 5 MG TABLET PO PRN (17:00)
[2019-03-03] MEDS ORDERED: -PHARMACY VACCINE NOTE- MISC ONE (18:00)
[2019-03-03 18:14] VITALS: BP 139/61
[2019-03-03] MEDS ORDERED: PETROLATUM,WHITE 28 GM JELLY TP PRN (19:45)
[2019-03-03] MEDS ORDERED: BENZOCAINE/MENTHOL LOZENGE MM PRN (19:45)
[2019-03-03] MEDS ORDERED: BACITRACIN 28.4 GM OINTMENT TP PRN (19:45)
[2019-03-03] MEDS ORDERED: ONDANSETRON HCL 4 MG TABLET PO PRN (19:45)
[2019-03-03] MEDS ORDERED: LOPERAMIDE HCL 2 MG CAPSULE PO PRN (19:45)
[2019-03-03] MEDS ORDERED: ALBUTEROL SULFATE HFA 90 MCG/PUFF 8 GM INHALER IH PRN (19:45)
[2019-03-03] MEDS ORDERED: CloNIDine HCL 0.1 MG TABLET PO PRN (19:45)
[2019-03-03] MEDS ORDERED: MAGNESIUM HYDROXIDE SUSPENSION 30 ML UDCUP PO PRN (19:45)
[2019-03-03] MEDS ORDERED: ACETAMINOPHEN 325 MG TABLET PO PRN (19:45)
[2019-03-03] MEDS ORDERED: MAG HYDROX/AL HYDROX/SIMETH ES 30 ML SUSPENSION UDCUP PO PRN (19:45)
[2019-03-04 05:08] VITALS: BP 130/65
[2019-03-04 08:17] VITALS: BP 151/96
[2019-03-04 08:44] LABS: BASOPHILS % (AUTO) 1.4 % (0.0-2.0); EOSINOPHILS % (AUTO) 4.2 % (1.0-6.0); HEMATOCRIT 38.5 % (41-53); HEMOGLOBIN 12.8 g/dL (13.5-17.5); LYMPHOCYTES # (AUTO) 1.4 K/uL (1.0-4.8); LYMPHOCYTES % (AUTO) 26.9 % (22.0-44.0); MEAN CORPUSCULAR HEMOGLOBIN 28.1 pg (26.0-34.0); MEAN CORPUSCULAR HGB CONC 33.1 G/dL (31.0-37.0); MEAN CORPUSCULAR VOLUME 85 fL (80-100); MONOCYTES # (AUTO) 0.5 K/uL (0.1-1.0); MONOCYTES % (AUTO) 10.2 % (2.0-9.0); NEUTROPHILS # (AUTO) 2.9 K/uL (1.8-7.7); NEUTROPHILS % (AUTO) 57.3 % (40.0-70.0); PLATELET COUNT (AUTO) 198 K/uL (150-450); RED BLOOD CELL COUNT(AUTO) 4.53 MIL/uL (4.50-5.90); RED CELL DISTRIBUTION WIDTH 14.5 % (11.5-14.5)
[2019-03-04] MEDS: DOCUSATE SODIUM 100 MG CAPSULE PO SCH (09:24)
[2019-03-04] MEDS: OMEPRAZOLE 20 MG CAPSULE PO SCH (09:24)
[2019-03-04 09:39] LABS: HEMOGLOBIN A1C 5.9 % (4.5-6.2)
[2019-03-04 09:43] LABS: ALANINE AMINOTRANSFERASE 16 U/L (12-78); ALBUMIN 2.9 g/dL (3.4-5.0); ALKALINE PHOSPHATASE 95 U/L (46-116); ANION GAP 10 mmol/L (8-16); ASPARTATE AMINOTRANSFERASE 22 U/L (15-37); BILIRUBIN,TOTAL 0.4 mg/dL (0.1-1.0); CALCIUM, TOTAL 8.7 mg/dL (8.8-10.5); CARBON DIOXIDE 26 mmol/L (22-29); CHLORIDE 107 mmol/L (98-107); CHOL/HDL RATIO 3.6 (4.2-7.3); CHOLESTEROL 148 mg/dL (131-200); CREATININE 1.14 mg/dL (0.60-1.30); GLOMERULAR FILTR. RATE CALC > 60 mL/min (>60); GLUCOSE,RANDOM 94 mg/dL (70-110); HDL CHOLESTEROL 41 mg/dL (40-60); LDL CHOL (CALC.) 97 mg/dL (0-130); POTASSIUM 3.8 mmol/L (3.5-5.1); SODIUM SERUM 143 mmol/L (136-145); THYROID STIMULATING HORMONE 1.69 uIU/mL (0.36-3.74); TOTAL PROTEIN, SERUM 6.8 g/dL (6.4-8.2); TRIGLYCERIDES 50 mg/dL (15-150); UREA NITROGEN, BLOOD 16 mg/dL (7-18)
[2019-03-04 16:53] VITALS: BP 126/85
[2019-03-04] MEDS ORDERED: RisperiDONE 3 MG TABLET PO SCH (17:00)
[2019-03-04] MEDS: RisperiDONE 3 MG TABLET PO SCH (17:01)
[2019-03-05 06:00] VITALS: BP 132/78
[2019-03-05 09:00] VITALS: BP 138/95
[2019-03-05] MEDS: RisperiDONE 3 MG TABLET PO SCH ×2 (09:00→17:00)
[2019-03-05] MEDS: ATENOLOL 50 MG TABLET PO SCH (09:00)
[2019-03-05] MEDS: FUROSEMIDE 20 MG TABLET PO SCH (09:00)
[2019-03-05] MEDS: ASPIRIN 81 MG EC TABLET PO SCH (09:00)
[2019-03-05] MEDS: DOCUSATE SODIUM 100 MG CAPSULE PO SCH (09:00)
[2019-03-05] MEDS: OMEPRAZOLE 20 MG CAPSULE PO SCH (09:00)
[2019-03-05] MEDS: TAMSULOSIN HCL 0.4 MG CAPSULE PO SCH (09:00)
[2019-03-05 09:38] LABS: AMPHET/METH SCREEN,URINE NEGATIVE (NEGATIVE); BARBITURATE SCREEN, URINE NEGATIVE (NEGATIVE); BENZODIAZEPINES SCREEN,URINE NEGATIVE (NEGATIVE); CANNABINOID SCREEN,URINE NEGATIVE (NEGATIVE); COCAINE SCREEN,URINE NEGATIVE (NEGATIVE); METHADONE SCREEN, URINE NEGATIVE (NEGATIVE); OPIATE SCREEN,URINE NEGATIVE (NEGATIVE)
[2019-03-05 09:42] LABS: PHENCYCLIDINE SCREEN,URINE NEGATIVE (NEGATIVE)
[2019-03-05 09:58] LABS: APPEARANCE,URINE CLEAR (CLEAR); BILIRUBIN,URINE NEGATIVE (NEGATIVE); GLUCOSE, URINE (UA) NEGATIVE (NEGATIVE); KETONES,URINE NEGATIVE (NEGATIVE); LEUKOCYTE ESTERASE ,URINE NEGATIVE (NEGATIVE); NITRATE,URINE NEGATIVE (NEGATIVE); OCCULT BLOOD,URINE NEGATIVE (NEGATIVE); PH,URINE 6.5 (5.0-8.0); PROTEIN,URINE NEGATIVE (NEGATIVE)
[2019-03-05 16:38] VITALS: BP 134/87
[2019-03-06 05:51] VITALS: BP 135/92
[2019-03-06] MEDS: DOCUSATE SODIUM 100 MG CAPSULE PO SCH (08:35)
[2019-03-06] MEDS: ASPIRIN 81 MG EC TABLET PO SCH (08:38)
[2019-03-06] MEDS: TAMSULOSIN HCL 0.4 MG CAPSULE PO SCH (08:38)
[2019-03-06] MEDS: OMEPRAZOLE 20 MG CAPSULE PO SCH (08:40)
[2019-03-06] MEDS: FUROSEMIDE 20 MG TABLET PO SCH (08:40)
[2019-03-06] MEDS: ATENOLOL 50 MG TABLET PO SCH (08:40)
[2019-03-06] MEDS: RisperiDONE 3 MG TABLET PO SCH ×3 (08:40→17:29)
[2019-03-06 09:32] VITALS: BP 165/76
[2019-03-06] MEDS ORDERED: LORazepam 2 MG/ML VIAL IM ONE (16:45)
[2019-03-06] MEDS ORDERED: DiphenhydrAMINE HCL 50 MG/ML VIAL IM ONE (16:45)
[2019-03-06] MEDS ORDERED: HALOPERIDOL LACTATE 5 MG/ML VIAL IM ONE (16:45)
[2019-03-06 18:00] VITALS: BP 128/67
[2019-03-07] MEDS: DOCUSATE SODIUM 100 MG CAPSULE PO SCH (08:48)
[2019-03-07] MEDS: ATENOLOL 50 MG TABLET PO SCH (08:57)
[2019-03-07] MEDS: TAMSULOSIN HCL 0.4 MG CAPSULE PO SCH (09:00)
[2019-03-07] MEDS: RisperiDONE 3 MG TABLET PO SCH ×2 (09:00→17:00)
[2019-03-07] MEDS: ASPIRIN 81 MG EC TABLET PO SCH (09:00)
[2019-03-07] MEDS: FUROSEMIDE 20 MG TABLET PO SCH (09:00)
[2019-03-07] MEDS: OMEPRAZOLE 20 MG CAPSULE PO SCH (09:00)
[2019-03-07 09:53] VITALS: BP 136/100
[2019-03-07 16:00] VITALS: BP 122/74
[2019-03-08 00:57] VITALS: BP 125/69
[2019-03-08 08:15] VITALS: BP 142/88
[2019-03-08] MEDS: RisperiDONE 3 MG TABLET PO SCH ×2 (09:00→17:00)
[2019-03-08] MEDS: ASPIRIN 81 MG EC TABLET PO SCH (09:00)
[2019-03-08] MEDS: ATENOLOL 50 MG TABLET PO SCH (09:00)
[2019-03-08] MEDS: TAMSULOSIN HCL 0.4 MG CAPSULE PO SCH (09:00)
[2019-03-08] MEDS: FUROSEMIDE 20 MG TABLET PO SCH (09:00)
[2019-03-08] MEDS: OMEPRAZOLE 20 MG CAPSULE PO SCH (09:00)
[2019-03-08] MEDS: DOCUSATE SODIUM 100 MG CAPSULE PO SCH (09:48)
[2019-03-08 16:14] VITALS: BP 124/75
[2019-03-09 01:12] VITALS: BP 126/81
[2019-03-09 03:15] VITALS: BP 144/86
[2019-03-09 08:38] VITALS: BP 136/68
[2019-03-09] MEDS: OMEPRAZOLE 20 MG CAPSULE PO SCH (09:00)
[2019-03-09] MEDS: RisperiDONE 3 MG TABLET PO SCH ×2 (09:00→16:08)
[2019-03-09] MEDS: FUROSEMIDE 20 MG TABLET PO SCH (09:00)
[2019-03-09] MEDS: ATENOLOL 50 MG TABLET PO SCH (09:00)
[2019-03-09] MEDS: TAMSULOSIN HCL 0.4 MG CAPSULE PO SCH (09:00)
[2019-03-09] MEDS: ASPIRIN 81 MG EC TABLET PO SCH (09:00)
[2019-03-09 09:28] VITALS: BP 152/81
[2019-03-09] MEDS: IBUPROFEN 600 MG TABLET PO PRN (09:28)
[2019-03-09] MEDS: DOCUSATE SODIUM 100 MG CAPSULE PO SCH (09:28)
[2019-03-09 16:23] VITALS: BP 135/75
[2019-03-09 17:30] VITALS: BP 148/98
[2019-03-10 00:30] VITALS: BP 136/63
[2019-03-10] MEDS: IBUPROFEN 600 MG TABLET PO PRN ×2 (00:40→09:59)
[2019-03-10] MEDS: TAMSULOSIN HCL 0.4 MG CAPSULE PO SCH (09:00)
[2019-03-10] MEDS: FUROSEMIDE 20 MG TABLET PO SCH (09:00)
[2019-03-10] MEDS: RisperiDONE 3 MG TABLET PO SCH ×2 (09:00→16:19)
[2019-03-10] MEDS: ASPIRIN 81 MG EC TABLET PO SCH (09:00)
[2019-03-10] MEDS: OMEPRAZOLE 20 MG CAPSULE PO SCH (09:00)
[2019-03-10] MEDS: DOCUSATE SODIUM 100 MG CAPSULE PO SCH (09:59)
[2019-03-10] MEDS: ATENOLOL 25 MG TABLET PO SCH (09:59)
[2019-03-10 11:01] VITALS: BP 129/63
[2019-03-11 03:07] VITALS: BP 141/86
[2019-03-11] MEDS: IBUPROFEN 600 MG TABLET PO PRN (03:10)
[2019-03-11] MEDS: DOCUSATE SODIUM 100 MG CAPSULE PO SCH (09:00)
[2019-03-11] MEDS: FUROSEMIDE 20 MG TABLET PO SCH (09:00)
[2019-03-11] MEDS: OMEPRAZOLE 20 MG CAPSULE PO SCH (09:00)
[2019-03-11] MEDS: ATENOLOL 25 MG TABLET PO SCH (09:00)
[2019-03-11] MEDS: ASPIRIN 81 MG EC TABLET PO SCH (09:00)
[2019-03-11] MEDS: RisperiDONE 3 MG TABLET PO SCH ×2 (09:00→16:07)
[2019-03-11] MEDS: TAMSULOSIN HCL 0.4 MG CAPSULE PO SCH (09:00)
[2019-03-11 16:13] VITALS: BP 125/84
[2019-03-12 08:46] VITALS: BP 150/68
[2019-03-12] MEDS: IBUPROFEN 600 MG TABLET PO PRN (08:46)
[2019-03-12] MEDS: DOCUSATE SODIUM 100 MG CAPSULE PO SCH (08:46)
[2019-03-12] MEDS: TAMSULOSIN HCL 0.4 MG CAPSULE PO SCH (08:47)
[2019-03-12] MEDS: ASPIRIN 81 MG EC TABLET PO SCH (08:47)
[2019-03-12] MEDS: RisperiDONE 3 MG TABLET PO SCH ×2 (08:48→16:51)
[2019-03-12] MEDS: FUROSEMIDE 20 MG TABLET PO SCH (08:48)
[2019-03-12] MEDS: OMEPRAZOLE 20 MG CAPSULE PO SCH (08:48)
[2019-03-12] MEDS: ATENOLOL 25 MG TABLET PO SCH (08:48)
[2019-03-12 16:07] VITALS: BP 108/57
[2019-03-13] MEDS: ASPIRIN 81 MG EC TABLET PO SCH (09:00)
[2019-03-13] MEDS: FUROSEMIDE 20 MG TABLET PO SCH (09:00)
[2019-03-13] MEDS: DOCUSATE SODIUM 100 MG CAPSULE PO SCH (09:00)
[2019-03-13] MEDS: RisperiDONE 3 MG TABLET PO SCH (09:00)
[2019-03-13] MEDS: TAMSULOSIN HCL 0.4 MG CAPSULE PO SCH (09:00)
[2019-03-13] MEDS: OMEPRAZOLE 20 MG CAPSULE PO SCH (09:00)
[2019-03-13] MEDS: ATENOLOL 25 MG TABLET PO SCH (09:00)
[2019-03-13] MEDS ORDERED: RISP3 PO (11:03)
[2019-03-13] MEDS ORDERED: DSS100 PO (11:04)
[2019-03-13] MEDS ORDERED: ATEN25TA PO (11:04)
[2019-03-13] MEDS ORDERED: ASPI-1182 PO (11:04)
[2019-03-13] MEDS ORDERED: FURO20 PO (11:05)
[2019-03-13] MEDS ORDERED: OMEP20 PO (11:05)
[2019-03-13] MEDS ORDERED: TAMS-1 PO (11:06)
== END 2019-03-13 14:45 | disposition home or self-care (01) | DRG 885 ==
LOC: B3A 17:09 → B2S 03-07 20:57 → 3EI 03-09 17:10
PROVIDERS: ADMIT Psychiatry & Neurology Psychiatry; ATTEND Psychiatry & Neurology Psychiatry
DX: F20.0 Paranoid schizophrenia (principal); F17.200 Nicotine dependence, unspecified, uncomplicated; G47.00 Insomnia, unspecified; I10 Essential (primary) hypertension; I48.91 Unspecified atrial fibrillation; J44.9 Chronic obstructive pulmonary disease, unspecified; K21.9 Gastro-esophageal reflux disease without esophagitis; M19.90 Unspecified osteoarthritis, unspecified site; N40.0 Benign prostatic hyperplasia without lower urinary tract symptoms; E55.9 Vitamin D deficiency, unspecified; E66.9 Obesity, unspecified; Z68.33 Body mass index [BMI] 33.0-33.9, adult; Z91.14 Patient's other noncompliance with medication regimen
CPT/HCPCS: 80307; 83036; 84439; 84443; J1200; J1630; J2060

== ENCOUNTER 2019-05-06 18:46 | Inpatient (IN) | payer MEDICARE, MEDICAID ==
[~2019-05-06] VITALS: Ht 193 cm; Wt 131.1 kg
[~2019-05-06 18:46] MED LIST changes: +ASPI-1182 PO; +DSS100 PO; -FERR-89 PO; +FURO20 PO; -LISI-661 PO; +OMEP20 PO; +TAMS-1 PO
[2019-05-06 19:33] VITALS: BP 148/79
[2019-05-06] MEDS ORDERED: LORazepam 2 MG TABLET PO PRN (20:00)
[2019-05-06] MEDS ORDERED: ZOLPIDEM TARTRATE 10 MG TABLET PO PRN (20:00)
[2019-05-06] MEDS ORDERED: HALOPERIDOL 5 MG TABLET PO PRN (20:00)
[2019-05-06 20:43] VITALS: BP 142/86
[2019-05-06] MEDS ORDERED: ACETAMINOPHEN 325 MG TABLET PO PRN (21:00)
[2019-05-07 01:00] VITALS: BP 137/79
[2019-05-07] MEDS ORDERED: -PHARMACY VACCINE NOTE- MISC ONE (03:00)
[2019-05-07 07:28] LABS: BASOPHILS % (AUTO) 0.9 % (0.0-2.0); EOSINOPHILS % (AUTO) 6.2 % (1.0-6.0); HEMOGLOBIN 12.8 g/dL (13.5-17.5); LYMPHOCYTES # (AUTO) 1.6 K/uL (1.0-4.8); LYMPHOCYTES % (AUTO) 24.6 % (22.0-44.0); MEAN CORPUSCULAR HEMOGLOBIN 28.8 pg (26.0-34.0); MEAN CORPUSCULAR HGB CONC 32.7 G/dL (31.0-37.0); MEAN CORPUSCULAR VOLUME 88 fL (80-100); MONOCYTES # (AUTO) 0.7 K/uL (0.1-1.0); MONOCYTES % (AUTO) 10.7 % (2.0-9.0); NEUTROPHILS # (AUTO) 3.8 K/uL (1.8-7.7); NEUTROPHILS % (AUTO) 57.6 % (40.0-70.0); PLATELET COUNT (AUTO) 164 K/uL (150-450); RED BLOOD CELL COUNT(AUTO) 4.42 MIL/uL (4.50-5.90); RED CELL DISTRIBUTION WIDTH 14.2 % (11.5-14.5)
[2019-05-07 07:52] LABS: ALBUMIN 2.8 g/dL (3.4-5.0); BILIRUBIN,TOTAL 0.3 mg/dL (0.1-1.0); CALCIUM, TOTAL 8.8 mg/dL (8.8-10.5); CHOL/HDL RATIO 4.3 (4.2-7.3); CREATININE 1.3 mg/dL (0.60-1.30); TOTAL PROTEIN, SERUM 6.5 g/dL (6.4-8.2)
[2019-05-07] MEDS: DOCUSATE SODIUM 100 MG CAPSULE PO SCH (08:09)
[2019-05-07] MEDS: OMEPRAZOLE 20 MG CAPSULE PO SCH (08:10)
[2019-05-07] MEDS: FUROSEMIDE 20 MG TABLET PO SCH (08:10)
[2019-05-07] MEDS: TAMSULOSIN HCL 0.4 MG CAPSULE PO SCH (08:10)
[2019-05-07] MEDS: ASPIRIN 81 MG CHEWABLE TABLET PO SCH (08:10)
[2019-05-07] MEDS: ATENOLOL 25 MG TABLET PO SCH (08:10)
[2019-05-07 09:11] VITALS: BP 123/89
[2019-05-07] MEDS: IBUPROFEN 600 MG TABLET PO PRN (10:49)
[2019-05-07 16:44] VITALS: BP 111/86
[2019-05-08] MEDS: IBUPROFEN 600 MG TABLET PO PRN ×2 (01:51→08:55)
[2019-05-08 01:53] VITALS: BP 141/90
[2019-05-08] MEDS: ASPIRIN 81 MG CHEWABLE TABLET PO SCH (08:16)
[2019-05-08] MEDS: OMEPRAZOLE 20 MG CAPSULE PO SCH (08:16)
[2019-05-08] MEDS: FUROSEMIDE 20 MG TABLET PO SCH (08:16)
[2019-05-08] MEDS: DOCUSATE SODIUM 100 MG CAPSULE PO SCH (08:16)
[2019-05-08] MEDS: ATENOLOL 25 MG TABLET PO SCH (08:17)
[2019-05-08] MEDS: TAMSULOSIN HCL 0.4 MG CAPSULE PO SCH (08:17)
[2019-05-08] MEDS: RisperiDONE 3 MG TABLET PO SCH (08:17)
[2019-05-08 08:18] VITALS: BP 122/96
[2019-05-09 02:57] VITALS: BP 142/90
[2019-05-09 04:42] VITALS: BP 145/89
[2019-05-09] MEDS: IBUPROFEN 600 MG TABLET PO PRN ×2 (04:43→12:19)
[2019-05-09] MEDS: OMEPRAZOLE 20 MG CAPSULE PO SCH (08:45)
[2019-05-09] MEDS: RisperiDONE 3 MG TABLET PO SCH (08:45)
[2019-05-09] MEDS: DOCUSATE SODIUM 100 MG CAPSULE PO SCH (08:45)
[2019-05-09] MEDS: TAMSULOSIN HCL 0.4 MG CAPSULE PO SCH (08:45)
[2019-05-09] MEDS: FUROSEMIDE 20 MG TABLET PO SCH (08:45)
[2019-05-09] MEDS: ASPIRIN 81 MG CHEWABLE TABLET PO SCH (08:45)
[2019-05-09 09:03] VITALS: BP 133/92
[2019-05-09] MEDS: ATENOLOL 25 MG TABLET PO SCH (09:05)
[2019-05-09 12:19] VITALS: BP 135/100
[2019-05-09] MEDS ORDERED: DENTURE ADHESIVE 68 GM CREAM DT PRN (14:45)
[2019-05-09 16:14] VITALS: BP 118/68
[2019-05-10 05:21] VITALS: BP 141/89
[2019-05-10 08:37] VITALS: BP 104/71
[2019-05-10] MEDS: OMEPRAZOLE 20 MG CAPSULE PO SCH (08:57)
[2019-05-10] MEDS: FUROSEMIDE 20 MG TABLET PO SCH (08:58)
[2019-05-10] MEDS: TAMSULOSIN HCL 0.4 MG CAPSULE PO SCH (08:58)
[2019-05-10] MEDS: DOCUSATE SODIUM 100 MG CAPSULE PO SCH (08:58)
[2019-05-10] MEDS: ATENOLOL 25 MG TABLET PO SCH (08:58)
[2019-05-10] MEDS: RisperiDONE 3 MG TABLET PO SCH (08:58)
[2019-05-10] MEDS: ASPIRIN 81 MG CHEWABLE TABLET PO SCH (08:58)
[2019-05-10 16:11] VITALS: BP 121/80
[2019-05-11 02:53] VITALS: BP 138/86
[2019-05-11] MEDS: IBUPROFEN 600 MG TABLET PO PRN ×2 (02:54→12:02)
[2019-05-11 08:08] VITALS: BP 140/78
[2019-05-11] MEDS: OMEPRAZOLE 20 MG CAPSULE PO SCH (08:51)
[2019-05-11] MEDS: DOCUSATE SODIUM 100 MG CAPSULE PO SCH (08:52)
[2019-05-11] MEDS: FUROSEMIDE 20 MG TABLET PO SCH (08:52)
[2019-05-11] MEDS: TAMSULOSIN HCL 0.4 MG CAPSULE PO SCH (08:52)
[2019-05-11] MEDS: ATENOLOL 25 MG TABLET PO SCH (08:52)
[2019-05-11] MEDS: RisperiDONE 3 MG TABLET PO SCH (08:52)
[2019-05-11] MEDS: ASPIRIN 81 MG CHEWABLE TABLET PO SCH (08:52)
[2019-05-11 12:01] VITALS: BP 119/59
[2019-05-11 13:02] VITALS: BP 110/65
[2019-05-11 16:04] VITALS: BP 121/63
[2019-05-12 05:28] VITALS: BP 134/78
[2019-05-12] MEDS: FUROSEMIDE 20 MG TABLET PO SCH (08:05)
[2019-05-12] MEDS: OMEPRAZOLE 20 MG CAPSULE PO SCH (08:05)
[2019-05-12] MEDS: ASPIRIN 81 MG CHEWABLE TABLET PO SCH (08:06)
[2019-05-12] MEDS: RisperiDONE 3 MG TABLET PO SCH (08:06)
[2019-05-12] MEDS: DOCUSATE SODIUM 100 MG CAPSULE PO SCH (08:06)
[2019-05-12] MEDS: TAMSULOSIN HCL 0.4 MG CAPSULE PO SCH (08:06)
[2019-05-12 08:07] VITALS: BP 140/89
[2019-05-12] MEDS: IBUPROFEN 600 MG TABLET PO PRN (08:07)
[2019-05-12] MEDS: ATENOLOL 25 MG TABLET PO SCH (08:07)
[2019-05-12 08:51] VITALS: BP 149/89
[2019-05-12 16:18] VITALS: BP 134/71
[2019-05-13 02:15] VITALS: BP 140/90
[2019-05-13 02:29] VITALS: BP 128/70
[2019-05-13] MEDS: IBUPROFEN 600 MG TABLET PO PRN ×2 (03:07→10:48)
[2019-05-13 08:14] VITALS: BP 115/61
[2019-05-13] MEDS: DOCUSATE SODIUM 100 MG CAPSULE PO SCH (08:34)
[2019-05-13] MEDS: ASPIRIN 81 MG CHEWABLE TABLET PO SCH (08:34)
[2019-05-13] MEDS: RisperiDONE 3 MG TABLET PO SCH (08:35)
[2019-05-13] MEDS: OMEPRAZOLE 20 MG CAPSULE PO SCH (08:35)
[2019-05-13] MEDS: TAMSULOSIN HCL 0.4 MG CAPSULE PO SCH (08:35)
[2019-05-13] MEDS: ATENOLOL 25 MG TABLET PO SCH (08:35)
[2019-05-13] MEDS: FUROSEMIDE 20 MG TABLET PO SCH (08:35)
[2019-05-13 10:48] VITALS: BP 116/86
[2019-05-13 16:05] VITALS: BP 109/63
[2019-05-14 04:20] VITALS: BP 120/81
[2019-05-14] MEDS: IBUPROFEN 600 MG TABLET PO PRN (04:22)
[2019-05-14 08:00] VITALS: BP 140/85
[2019-05-14] MEDS: OMEPRAZOLE 20 MG CAPSULE PO SCH (08:56)
[2019-05-14] MEDS: FUROSEMIDE 20 MG TABLET PO SCH (08:56)
[2019-05-14] MEDS: ASPIRIN 81 MG CHEWABLE TABLET PO SCH (08:56)
[2019-05-14] MEDS: RisperiDONE 3 MG TABLET PO SCH (08:56)
[2019-05-14] MEDS: DOCUSATE SODIUM 100 MG CAPSULE PO SCH (08:56)
[2019-05-14] MEDS: ATENOLOL 25 MG TABLET PO SCH (08:58)
[2019-05-14] MEDS: TAMSULOSIN HCL 0.4 MG CAPSULE PO SCH (08:58)
[2019-05-14 16:09] VITALS: BP 142/84
[2019-05-15 04:14] VITALS: BP 117/70
[2019-05-15] MEDS: IBUPROFEN 600 MG TABLET PO PRN (04:18)
[2019-05-15 08:07] VITALS: BP 123/72
[2019-05-15] MEDS: FUROSEMIDE 20 MG TABLET PO SCH (08:37)
[2019-05-15] MEDS: ASPIRIN 81 MG CHEWABLE TABLET PO SCH (08:37)
[2019-05-15] MEDS: RisperiDONE 3 MG TABLET PO SCH (08:37)
[2019-05-15] MEDS: DOCUSATE SODIUM 100 MG CAPSULE PO SCH (08:37)
[2019-05-15] MEDS: TAMSULOSIN HCL 0.4 MG CAPSULE PO SCH (08:38)
[2019-05-15] MEDS: OMEPRAZOLE 20 MG CAPSULE PO SCH (08:38)
[2019-05-15] MEDS: ATENOLOL 25 MG TABLET PO SCH (08:38)
[2019-05-15 18:30] VITALS: BP 114/60
[2019-05-16 04:57] VITALS: BP 120/81
[2019-05-16] MEDS: FUROSEMIDE 20 MG TABLET PO SCH (10:19)
[2019-05-16] MEDS: ASPIRIN 81 MG CHEWABLE TABLET PO SCH (10:19)
[2019-05-16] MEDS: OMEPRAZOLE 20 MG CAPSULE PO SCH (10:19)
[2019-05-16] MEDS: RisperiDONE 3 MG TABLET PO SCH (10:20)
[2019-05-16] MEDS: DOCUSATE SODIUM 100 MG CAPSULE PO SCH (10:20)
[2019-05-16] MEDS: TAMSULOSIN HCL 0.4 MG CAPSULE PO SCH (10:20)
[2019-05-16] MEDS: ATENOLOL 25 MG TABLET PO SCH (10:20)
[2019-05-16 11:18] VITALS: BP 145/79
[2019-05-16] MEDS: IBUPROFEN 600 MG TABLET PO PRN (11:18)
[2019-05-16 16:41] VITALS: BP 121/60
[2019-05-17 04:02] VITALS: BP 138/90
[2019-05-17] MEDS: IBUPROFEN 600 MG TABLET PO PRN (04:03)
[2019-05-17 08:40] VITALS: BP 122/78
[2019-05-17] MEDS: DOCUSATE SODIUM 100 MG CAPSULE PO SCH (08:43)
[2019-05-17] MEDS: ATENOLOL 25 MG TABLET PO SCH (08:43)
[2019-05-17] MEDS: ASPIRIN 81 MG CHEWABLE TABLET PO SCH (08:43)
[2019-05-17] MEDS: TAMSULOSIN HCL 0.4 MG CAPSULE PO SCH (08:43)
[2019-05-17] MEDS: FUROSEMIDE 20 MG TABLET PO SCH (08:43)
[2019-05-17] MEDS: RisperiDONE 3 MG TABLET PO SCH (08:43)
[2019-05-17] MEDS: OMEPRAZOLE 20 MG CAPSULE PO SCH (08:43)
[2019-05-18 05:14] VITALS: BP 122/96
[2019-05-18] MEDS: IBUPROFEN 600 MG TABLET PO PRN ×2 (05:14→16:14)
[2019-05-18 08:03] VITALS: BP 121/81
[2019-05-18] MEDS: FUROSEMIDE 20 MG TABLET PO SCH (08:35)
[2019-05-18] MEDS: DOCUSATE SODIUM 100 MG CAPSULE PO SCH (08:35)
[2019-05-18] MEDS: ATENOLOL 25 MG TABLET PO SCH (08:35)
[2019-05-18] MEDS: OMEPRAZOLE 20 MG CAPSULE PO SCH (08:35)
[2019-05-18] MEDS: TAMSULOSIN HCL 0.4 MG CAPSULE PO SCH (08:35)
[2019-05-18] MEDS: RisperiDONE 3 MG TABLET PO SCH (08:35)
[2019-05-18] MEDS: ASPIRIN 81 MG CHEWABLE TABLET PO SCH (08:36)
[2019-05-18 16:08] VITALS: BP 127/64
[2019-05-19 00:22] VITALS: BP 125/74
[2019-05-19] MEDS: IBUPROFEN 600 MG TABLET PO PRN ×2 (00:24→08:25)
[2019-05-19] MEDS: ASPIRIN 81 MG CHEWABLE TABLET PO SCH (08:21)
[2019-05-19] MEDS: ATENOLOL 25 MG TABLET PO SCH (08:21)
[2019-05-19] MEDS: FUROSEMIDE 20 MG TABLET PO SCH (08:21)
[2019-05-19] MEDS: RisperiDONE 3 MG TABLET PO SCH (08:21)
[2019-05-19] MEDS: DOCUSATE SODIUM 100 MG CAPSULE PO SCH (08:21)
[2019-05-19] MEDS: OMEPRAZOLE 20 MG CAPSULE PO SCH (08:21)
[2019-05-19] MEDS: TAMSULOSIN HCL 0.4 MG CAPSULE PO SCH (08:21)
[2019-05-19 08:25] VITALS: BP 140/77
[2019-05-19 16:25] VITALS: BP 115/74
[2019-05-20 01:18] VITALS: BP 120/81
[2019-05-20] MEDS: IBUPROFEN 600 MG TABLET PO PRN (01:18)
[2019-05-20 08:12] VITALS: BP 119/67
[2019-05-20] MEDS: OMEPRAZOLE 20 MG CAPSULE PO SCH (08:25)
[2019-05-20] MEDS: TAMSULOSIN HCL 0.4 MG CAPSULE PO SCH (08:25)
[2019-05-20] MEDS: DOCUSATE SODIUM 100 MG CAPSULE PO SCH (08:26)
[2019-05-20] MEDS: RisperiDONE 3 MG TABLET PO SCH (08:26)
[2019-05-20] MEDS: ASPIRIN 81 MG CHEWABLE TABLET PO SCH (08:26)
[2019-05-20] MEDS: ATENOLOL 25 MG TABLET PO SCH (08:26)
[2019-05-20] MEDS: FUROSEMIDE 20 MG TABLET PO SCH (08:26)
[2019-05-20 16:03] VITALS: BP 114/71
[2019-05-21 03:55] VITALS: BP 126/83
[2019-05-21] MEDS: IBUPROFEN 600 MG TABLET PO PRN (05:35)
[2019-05-21 05:36] VITALS: BP 126/92
[2019-05-21 08:17] VITALS: BP 108/65
[2019-05-21] MEDS: RisperiDONE 3 MG TABLET PO SCH (08:30)
[2019-05-21] MEDS: TAMSULOSIN HCL 0.4 MG CAPSULE PO SCH (08:30)
[2019-05-21] MEDS: ATENOLOL 25 MG TABLET PO SCH (08:30)
[2019-05-21] MEDS: DOCUSATE SODIUM 100 MG CAPSULE PO SCH (08:30)
[2019-05-21] MEDS: FUROSEMIDE 20 MG TABLET PO SCH (08:30)
[2019-05-21] MEDS: OMEPRAZOLE 20 MG CAPSULE PO SCH (08:30)
[2019-05-21] MEDS: ASPIRIN 81 MG CHEWABLE TABLET PO SCH (08:30)
[2019-05-21 16:15] VITALS: BP 121/61
[2019-05-22] MEDS: IBUPROFEN 600 MG TABLET PO PRN ×2 (00:07→19:25)
[2019-05-22 00:08] VITALS: BP 126/80
[2019-05-22 08:06] VITALS: BP 121/74
[2019-05-22] MEDS: ATENOLOL 25 MG TABLET PO SCH (08:26)
[2019-05-22] MEDS: OMEPRAZOLE 20 MG CAPSULE PO SCH (08:26)
[2019-05-22] MEDS: RisperiDONE 3 MG TABLET PO SCH (08:26)
[2019-05-22] MEDS: DOCUSATE SODIUM 100 MG CAPSULE PO SCH (08:26)
[2019-05-22] MEDS: FUROSEMIDE 20 MG TABLET PO SCH (08:26)
[2019-05-22] MEDS: TAMSULOSIN HCL 0.4 MG CAPSULE PO SCH (08:26)
[2019-05-22] MEDS: ASPIRIN 81 MG CHEWABLE TABLET PO SCH (08:27)
[2019-05-22 16:03] VITALS: BP 112/74
[2019-05-22 19:19] VITALS: BP 115/66
[2019-05-23 02:11] VITALS: BP 116/80
[2019-05-23] MEDS: OMEPRAZOLE 20 MG CAPSULE PO SCH (08:28)
[2019-05-23] MEDS: FUROSEMIDE 20 MG TABLET PO SCH (08:28)
[2019-05-23] MEDS: RisperiDONE 3 MG TABLET PO SCH (08:29)
[2019-05-23] MEDS: TAMSULOSIN HCL 0.4 MG CAPSULE PO SCH (08:29)
[2019-05-23] MEDS: ASPIRIN 81 MG CHEWABLE TABLET PO SCH (08:29)
[2019-05-23] MEDS: ATENOLOL 25 MG TABLET PO SCH (08:29)
[2019-05-23] MEDS: DOCUSATE SODIUM 100 MG CAPSULE PO SCH (08:29)
[2019-05-23 08:42] VITALS: BP 127/81
[2019-05-23 16:12] VITALS: BP 118/62
[2019-05-24 01:30] VITALS: BP 138/74
[2019-05-24] MEDS: IBUPROFEN 600 MG TABLET PO PRN ×2 (01:33→16:06)
[2019-05-24 08:08] VITALS: BP 126/85
[2019-05-24] MEDS: TAMSULOSIN HCL 0.4 MG CAPSULE PO SCH (08:18)
[2019-05-24] MEDS: DOCUSATE SODIUM 100 MG CAPSULE PO SCH (08:18)
[2019-05-24] MEDS: ASPIRIN 81 MG CHEWABLE TABLET PO SCH (08:18)
[2019-05-24] MEDS: RisperiDONE 3 MG TABLET PO SCH (08:18)
[2019-05-24] MEDS: OMEPRAZOLE 20 MG CAPSULE PO SCH (08:18)
[2019-05-24] MEDS: FUROSEMIDE 20 MG TABLET PO SCH (08:18)
[2019-05-24] MEDS: ATENOLOL 25 MG TABLET PO SCH (08:18)
[2019-05-24 16:21] VITALS: BP 112/69
[2019-05-25 01:41] VITALS: BP 120/86
[2019-05-25] MEDS: IBUPROFEN 600 MG TABLET PO PRN (01:43)
[2019-05-25 08:24] VITALS: BP 119/77
[2019-05-25] MEDS: ATENOLOL 25 MG TABLET PO SCH (08:36)
[2019-05-25] MEDS: OMEPRAZOLE 20 MG CAPSULE PO SCH (08:36)
[2019-05-25] MEDS: TAMSULOSIN HCL 0.4 MG CAPSULE PO SCH (08:36)
[2019-05-25] MEDS: ASPIRIN 81 MG CHEWABLE TABLET PO SCH (08:36)
[2019-05-25] MEDS: FUROSEMIDE 20 MG TABLET PO SCH (08:36)
[2019-05-25] MEDS: DOCUSATE SODIUM 100 MG CAPSULE PO SCH (08:36)
[2019-05-25] MEDS: RisperiDONE 3 MG TABLET PO SCH (08:45)
[2019-05-25 16:07] VITALS: BP 136/74
[2019-05-26 00:10] VITALS: BP 124/84
[2019-05-26] MEDS: IBUPROFEN 600 MG TABLET PO PRN (04:01)
[2019-05-26] MEDS: ASPIRIN 81 MG CHEWABLE TABLET PO SCH (08:44)
[2019-05-26] MEDS: FUROSEMIDE 20 MG TABLET PO SCH (08:44)
[2019-05-26] MEDS: TAMSULOSIN HCL 0.4 MG CAPSULE PO SCH (08:44)
[2019-05-26] MEDS: OMEPRAZOLE 20 MG CAPSULE PO SCH (08:44)
[2019-05-26] MEDS: ATENOLOL 25 MG TABLET PO SCH (08:44)
[2019-05-26] MEDS: DOCUSATE SODIUM 100 MG CAPSULE PO SCH (08:44)
[2019-05-26] MEDS: RisperiDONE 3 MG TABLET PO SCH (09:00)
[2019-05-26 09:13] VITALS: BP 135/100
[2019-05-26 16:05] VITALS: BP 125/61
[2019-05-27 06:26] VITALS: BP 121/68
[2019-05-27 08:08] VITALS: BP 110/60
[2019-05-27] MEDS: FUROSEMIDE 20 MG TABLET PO SCH (08:29)
[2019-05-27] MEDS: ASPIRIN 81 MG CHEWABLE TABLET PO SCH (08:29)
[2019-05-27] MEDS: ATENOLOL 25 MG TABLET PO SCH (08:29)
[2019-05-27] MEDS: TAMSULOSIN HCL 0.4 MG CAPSULE PO SCH (08:29)
[2019-05-27] MEDS: RisperiDONE 3 MG TABLET PO SCH (08:30)
[2019-05-27] MEDS: OMEPRAZOLE 20 MG CAPSULE PO SCH (08:30)
[2019-05-27] MEDS: DOCUSATE SODIUM 100 MG CAPSULE PO SCH (08:30)
[2019-05-27 16:09] VITALS: BP 122/64
[2019-05-28 05:16] VITALS: BP 126/70
[2019-05-28] MEDS: IBUPROFEN 600 MG TABLET PO PRN (05:19)
[2019-05-28 08:19] VITALS: BP 140/73
[2019-05-28] MEDS: TAMSULOSIN HCL 0.4 MG CAPSULE PO SCH (08:21)
[2019-05-28] MEDS: RisperiDONE 3 MG TABLET PO SCH (08:22)
[2019-05-28] MEDS: ASPIRIN 81 MG CHEWABLE TABLET PO SCH (08:22)
[2019-05-28] MEDS: OMEPRAZOLE 20 MG CAPSULE PO SCH (08:22)
[2019-05-28] MEDS: ATENOLOL 25 MG TABLET PO SCH (08:23)
[2019-05-28] MEDS: FUROSEMIDE 20 MG TABLET PO SCH (08:23)
[2019-05-28] MEDS: DOCUSATE SODIUM 100 MG CAPSULE PO SCH (08:23)
[2019-05-28 16:16] VITALS: BP 140/75
== END 2019-05-28 19:05 | disposition home or self-care (01) | DRG 885 ==
LOC: B2X 19:57
PROVIDERS: ADMIT Psychiatry & Neurology Psychiatry; ATTEND Psychiatry & Neurology Psychiatry
DX: F20.0 Paranoid schizophrenia (principal); F17.200 Nicotine dependence, unspecified, uncomplicated; I10 Essential (primary) hypertension; I48.91 Unspecified atrial fibrillation; J44.9 Chronic obstructive pulmonary disease, unspecified; K21.9 Gastro-esophageal reflux disease without esophagitis; M17.0 Bilateral primary osteoarthritis of knee; N40.0 Benign prostatic hyperplasia without lower urinary tract symptoms; R73.03 Prediabetes; Z79.899 Other long term (current) drug therapy
CPT/HCPCS: 83036; 86592; 87081

== ENCOUNTER 2019-07-23 22:31 | Inpatient (IN) | payer MEDICARE, MEDICAID ==
[~2019-07-23] VITALS: Ht 193 cm; Wt 134.7 kg
[2019-07-23] MEDS ORDERED: HALOPERIDOL 5 MG TABLET PO PRN (23:00)
[2019-07-23] MEDS ORDERED: ZOLPIDEM TARTRATE 10 MG TABLET PO PRN (23:00)
[2019-07-23] MEDS ORDERED: LORazepam 2 MG TABLET PO PRN (23:00)
[2019-07-23 23:10] VITALS: BP 142/88
[2019-07-24 00:12] VITALS: BP 134/89
[2019-07-24] MEDS ORDERED: INFLUENZA VIRUS VACCINE QVS 2019-20 (3YR+)/PF 60 MCG/0.5 ML SYRINGE IM ONE (01:00)
[2019-07-24 07:57] LABS: BASOPHILS % (AUTO) 0.8 % (0.0-2.0); EOSINOPHILS % (AUTO) 4.2 % (1.0-6.0); HEMATOCRIT 34.4 % (41-53); HEMOGLOBIN 11.6 g/dL (13.5-17.5); LYMPHOCYTES # (AUTO) 1.6 K/uL (1.0-4.8); MEAN CORPUSCULAR HEMOGLOBIN 29.2 pg (26.0-34.0); MEAN CORPUSCULAR HGB CONC 33.6 G/dL (31.0-37.0); MEAN CORPUSCULAR VOLUME 87 fL (80-100); MONOCYTES # (AUTO) 0.9 K/uL (0.1-1.0); MONOCYTES % (AUTO) 12.5 % (2.0-9.0); NEUTROPHILS % (AUTO) 58.5 % (40.0-70.0); PLATELET COUNT (AUTO) 157 K/uL (150-450); RED BLOOD CELL COUNT(AUTO) 3.96 MIL/uL (4.50-5.90); RED CELL DISTRIBUTION WIDTH 13.7 % (11.5-14.5)
[2019-07-24 08:32] LABS: ALANINE AMINOTRANSFERASE 20 U/L (12-78); ALKALINE PHOSPHATASE 100 U/L (46-116); ANION GAP 8 mmol/L (8-16); ASPARTATE AMINOTRANSFERASE 18 U/L (15-37); BILIRUBIN,TOTAL 0.3 mg/dL (0.1-1.0); CALCIUM, TOTAL 8.6 mg/dL (8.8-10.5); CARBON DIOXIDE 26 mmol/L (22-29); CHLORIDE 110 mmol/L (98-107); CHOL/HDL RATIO 3.9 (4.2-7.3); CHOLESTEROL 139 mg/dL (131-200); CREATININE 1.15 mg/dL (0.60-1.30); FREE T4 (FREE THYROXINE) 0.96 ng/dL (0.76-1.46); GLOMERULAR FILTR. RATE CALC > 60 mL/min (>60); GLUCOSE,RANDOM 120 mg/dL (70-110); HDL CHOLESTEROL 36 mg/dL (40-60); LDL CHOL (CALC.) 92 mg/dL (0-130); POTASSIUM 3.9 mmol/L (3.5-5.1); SODIUM SERUM 144 mmol/L (136-145); TOTAL PROTEIN, SERUM 5.9 g/dL (6.4-8.2); TRIGLYCERIDES 56 mg/dL (15-150); UREA NITROGEN, BLOOD 19 mg/dL (7-18)
[2019-07-24 08:33] VITALS: BP 138/68
[2019-07-24] MEDS ORDERED: LOPERAMIDE HCL 2 MG CAPSULE PO PRN (12:15)
[2019-07-24] MEDS ORDERED: BENZOCAINE/MENTHOL LOZENGE MM PRN (12:15)
[2019-07-24] MEDS ORDERED: DOCUSATE SODIUM 100 MG CAPSULE PO PRN (12:15)
[2019-07-24] MEDS ORDERED: OMEPRAZOLE 20 MG CAPSULE PO PRN (12:15)
[2019-07-24] MEDS ORDERED: MAG HYDROX/AL HYDROX/SIMETH ES 30 ML SUSPENSION UDCUP PO PRN (12:15)
[2019-07-24] MEDS ORDERED: ONDANSETRON HCL 4 MG TABLET PO PRN (12:15)
[2019-07-24] MEDS ORDERED: ALBUTEROL SULFATE HFA 90 MCG/PUFF 8 GM INHALER IH PRN (12:15)
[2019-07-24] MEDS ORDERED: MAGNESIUM HYDROXIDE SUSPENSION 30 ML UDCUP PO PRN (12:15)
[2019-07-24] MEDS ORDERED: CloNIDine HCL 0.1 MG TABLET PO PRN (12:15)
[2019-07-24] MEDS ORDERED: PETROLATUM,WHITE 28 GM JELLY TP PRN (12:15)
[2019-07-24] MEDS ORDERED: ACETAMINOPHEN 325 MG TABLET PO PRN (12:15)
[2019-07-24 16:01] VITALS: BP 109/65
[2019-07-24] MEDS: BACITRACIN 28.4 GM OINTMENT TP PRN (19:05)
[2019-07-24] MEDS: OLANZapine 7.5 MG TABLET PO SCH (20:40)
[2019-07-25] VITALS: BP 127/73
[2019-07-25] MEDS: TAMSULOSIN HCL 0.4 MG CAPSULE PO SCH (08:46)
[2019-07-25] MEDS: FUROSEMIDE 20 MG TABLET PO SCH (08:46)
[2019-07-25] MEDS: ATENOLOL 25 MG TABLET PO SCH (08:46)
[2019-07-25] MEDS: ASPIRIN 81 MG EC TABLET PO SCH (08:47)
[2019-07-25 09:20] VITALS: BP 121/81
[2019-07-25] MEDS: IBUPROFEN 600 MG TABLET PO PRN (09:30)
[2019-07-25 16:02] VITALS: BP 113/66
[2019-07-25] MEDS: IBUPROFEN 800 MG TABLET PO SCH (16:37)
[2019-07-25] MEDS: OLANZapine 7.5 MG TABLET PO SCH (20:07)
[2019-07-26 00:39] VITALS: BP 109/65
[2019-07-26 08:21] VITALS: BP 128/70
[2019-07-26] MEDS: IBUPROFEN 800 MG TABLET PO SCH ×3 (09:03→16:14)
[2019-07-26] MEDS: ASPIRIN 81 MG EC TABLET PO SCH (09:04)
[2019-07-26] MEDS: TAMSULOSIN HCL 0.4 MG CAPSULE PO SCH (09:04)
[2019-07-26] MEDS: FUROSEMIDE 20 MG TABLET PO SCH (09:05)
[2019-07-26] MEDS: ATENOLOL 25 MG TABLET PO SCH (09:05)
[2019-07-26 16:02] VITALS: BP 120/76
[2019-07-26] MEDS: OLANZapine 7.5 MG TABLET PO SCH (20:23)
[2019-07-27] VITALS: BP 127/75
[2019-07-27] MEDS: BACITRACIN 28.4 GM OINTMENT TP PRN (03:16)
[2019-07-27 08:12] VITALS: BP 116/73
[2019-07-27] MEDS: ATENOLOL 25 MG TABLET PO SCH (08:30)
[2019-07-27] MEDS: IBUPROFEN 800 MG TABLET PO SCH ×3 (08:30→16:12)
[2019-07-27] MEDS: ASPIRIN 81 MG EC TABLET PO SCH (08:30)
[2019-07-27] MEDS: TAMSULOSIN HCL 0.4 MG CAPSULE PO SCH (08:30)
[2019-07-27] MEDS: FUROSEMIDE 20 MG TABLET PO SCH (08:31)
[2019-07-27 16:01] VITALS: BP 114/68
[2019-07-27] MEDS: OLANZapine 7.5 MG TABLET PO SCH (20:24)
[2019-07-28] MEDS: IBUPROFEN 800 MG TABLET PO SCH ×3 (00:14→15:50)
[2019-07-28 06:31] VITALS: BP 122/71
[2019-07-28 08:05] VITALS: BP 130/80
[2019-07-28] MEDS: TAMSULOSIN HCL 0.4 MG CAPSULE PO SCH (08:31)
[2019-07-28] MEDS: ATENOLOL 25 MG TABLET PO SCH (08:31)
[2019-07-28] MEDS: ASPIRIN 81 MG EC TABLET PO SCH (08:31)
[2019-07-28] MEDS: FUROSEMIDE 20 MG TABLET PO SCH (08:31)
[2019-07-28 16:01] VITALS: BP 113/67
[2019-07-28] MEDS: OLANZapine 7.5 MG TABLET PO SCH (20:58)
[2019-07-29 05:57] VITALS: BP 112/63
[2019-07-29] MEDS: ATENOLOL 25 MG TABLET PO SCH (08:29)
[2019-07-29] MEDS: ASPIRIN 81 MG EC TABLET PO SCH (08:29)
[2019-07-29 08:30] VITALS: BP 121/66
[2019-07-29] MEDS: FUROSEMIDE 20 MG TABLET PO SCH (08:30)
[2019-07-29] MEDS: TAMSULOSIN HCL 0.4 MG CAPSULE PO SCH (08:30)
[2019-07-29 16:02] VITALS: BP 134/64
[2019-07-29] MEDS: OLANZapine 7.5 MG TABLET PO SCH (21:08)
[2019-07-30 01:14] VITALS: BP 119/68
[2019-07-30 08:13] VITALS: BP 140/61
[2019-07-30] MEDS: ATENOLOL 25 MG TABLET PO SCH (09:00)
[2019-07-30] MEDS: ASPIRIN 81 MG EC TABLET PO SCH (09:04)
[2019-07-30] MEDS: TAMSULOSIN HCL 0.4 MG CAPSULE PO SCH (09:04)
[2019-07-30] MEDS: FUROSEMIDE 20 MG TABLET PO SCH (09:05)
[2019-07-30 16:05] VITALS: BP 117/60
[2019-07-30 19:27] VITALS: BP 128/68
[2019-07-30] MEDS: IBUPROFEN 600 MG TABLET PO PRN (19:27)
[2019-07-30] MEDS: OLANZapine 7.5 MG TABLET PO SCH (20:05)
[2019-07-31 04:17] VITALS: BP 120/81
[2019-07-31] MEDS: ASPIRIN 81 MG EC TABLET PO SCH (08:16)
[2019-07-31] MEDS: ATENOLOL 25 MG TABLET PO SCH (08:16)
[2019-07-31] MEDS: FUROSEMIDE 20 MG TABLET PO SCH (08:16)
[2019-07-31] MEDS: TAMSULOSIN HCL 0.4 MG CAPSULE PO SCH (08:16)
[2019-07-31 08:25] VITALS: BP 113/69
[2019-07-31 16:04] VITALS: BP 118/60
[2019-07-31] MEDS: OLANZapine 7.5 MG TABLET PO SCH (20:08)
[2019-08-01 00:24] VITALS: BP 126/80
[2019-08-01 08:15] VITALS: BP 122/68
[2019-08-01] MEDS: FUROSEMIDE 20 MG TABLET PO SCH (08:32)
[2019-08-01] MEDS: ATENOLOL 25 MG TABLET PO SCH (08:33)
[2019-08-01] MEDS: TAMSULOSIN HCL 0.4 MG CAPSULE PO SCH (08:33)
[2019-08-01] MEDS: ASPIRIN 81 MG EC TABLET PO SCH (08:33)
[2019-08-01 16:05] VITALS: BP 120/64
[2019-08-01] MEDS: OLANZapine 7.5 MG TABLET PO SCH (21:08)
[2019-08-02 00:12] VITALS: BP 118/70
[2019-08-02 08:20] VITALS: BP 122/64
[2019-08-02] MEDS: FUROSEMIDE 20 MG TABLET PO SCH (08:28)
[2019-08-02] MEDS: TAMSULOSIN HCL 0.4 MG CAPSULE PO SCH (08:28)
[2019-08-02] MEDS: ASPIRIN 81 MG EC TABLET PO SCH (08:28)
[2019-08-02] MEDS: ATENOLOL 25 MG TABLET PO SCH (08:28)
[2019-08-02 17:32] VITALS: BP 122/75
[2019-08-02] MEDS: OLANZapine 7.5 MG TABLET PO SCH (20:00)
[2019-08-03 04:45] VITALS: BP 126/78
[2019-08-03 08:15] VITALS: BP 122/68
[2019-08-03] MEDS: ATENOLOL 25 MG TABLET PO SCH (08:34)
[2019-08-03] MEDS: TAMSULOSIN HCL 0.4 MG CAPSULE PO SCH (08:35)
[2019-08-03] MEDS: ASPIRIN 81 MG EC TABLET PO SCH (08:35)
[2019-08-03] MEDS: FUROSEMIDE 20 MG TABLET PO SCH (08:35)
[2019-08-03 16:08] VITALS: BP 129/79
[2019-08-03] MEDS: IBUPROFEN 600 MG TABLET PO PRN (16:09)
[2019-08-03] MEDS: OLANZapine 7.5 MG TABLET PO SCH (19:57)
[2019-08-04 00:20] VITALS: BP 125/76
[2019-08-04 08:00] VITALS: BP 111/62
[2019-08-04] MEDS: TAMSULOSIN HCL 0.4 MG CAPSULE PO SCH (08:31)
[2019-08-04] MEDS: FUROSEMIDE 20 MG TABLET PO SCH (08:31)
[2019-08-04] MEDS: ASPIRIN 81 MG EC TABLET PO SCH (08:31)
[2019-08-04] MEDS: ATENOLOL 25 MG TABLET PO SCH (08:31)
[2019-08-04 16:11] VITALS: BP 132/86
[2019-08-04] MEDS: OLANZapine 7.5 MG TABLET PO SCH (20:29)
[2019-08-05 00:16] VITALS: BP 112/79
[2019-08-05] MEDS: ASPIRIN 81 MG EC TABLET PO SCH (08:09)
[2019-08-05] MEDS: FUROSEMIDE 20 MG TABLET PO SCH (08:09)
[2019-08-05] MEDS: TAMSULOSIN HCL 0.4 MG CAPSULE PO SCH (08:09)
[2019-08-05] MEDS: ATENOLOL 25 MG TABLET PO SCH (08:10)
[2019-08-05 08:20] VITALS: BP 123/62
[2019-08-05 16:03] VITALS: BP 120/66
[2019-08-05] MEDS: OLANZapine 7.5 MG TABLET PO SCH (20:30)
[2019-08-06 00:01] VITALS: BP 118/70
[2019-08-06 08:13] VITALS: BP 120/80
[2019-08-06] MEDS: FUROSEMIDE 20 MG TABLET PO SCH (08:42)
[2019-08-06] MEDS: TAMSULOSIN HCL 0.4 MG CAPSULE PO SCH (08:43)
[2019-08-06] MEDS: ASPIRIN 81 MG EC TABLET PO SCH (08:43)
[2019-08-06] MEDS: ATENOLOL 25 MG TABLET PO SCH (08:43)
[2019-08-06] MEDS ORDERED: OLAN7.5T2 PO (13:21)
[2019-08-06 17:06] VITALS: BP 116/61
[2019-08-06] MEDS: OLANZapine 7.5 MG TABLET PO SCH (20:32)
[2019-08-07 01:53] VITALS: BP 117/83
[2019-08-07] MEDS: ATENOLOL 25 MG TABLET PO SCH (08:22)
[2019-08-07] MEDS: TAMSULOSIN HCL 0.4 MG CAPSULE PO SCH (08:22)
[2019-08-07] MEDS: ASPIRIN 81 MG EC TABLET PO SCH (08:22)
[2019-08-07] MEDS: FUROSEMIDE 20 MG TABLET PO SCH (08:22)
== END 2019-08-07 10:45 | disposition home or self-care (01) | DRG 885 ==
LOC: B2X 22:57 → UNDOADMIN 22:57 → B2X 07-24 04:36
PROVIDERS: ADMIT Psychiatry & Neurology Psychiatry; ATTEND Psychiatry & Neurology Psychiatry
DX: F20.0 Paranoid schizophrenia (principal); E55.9 Vitamin D deficiency, unspecified; F17.200 Nicotine dependence, unspecified, uncomplicated; G47.00 Insomnia, unspecified; I10 Essential (primary) hypertension; I48.91 Unspecified atrial fibrillation; J44.9 Chronic obstructive pulmonary disease, unspecified; K21.9 Gastro-esophageal reflux disease without esophagitis; M19.90 Unspecified osteoarthritis, unspecified site; N40.0 Benign prostatic hyperplasia without lower urinary tract symptoms; E66.9 Obesity, unspecified; D64.9 Anemia, unspecified; Z68.36 Body mass index [BMI] 36.0-36.9, adult; Z71.6 Tobacco abuse counseling
CPT/HCPCS: 84439

== ENCOUNTER 2020-02-25 10:40 | Emergency (ER) | payer MEDICARE, MEDICAID ==
[~2020-02-25] VITALS: Ht 182.9 cm; Wt 113.6 kg
[~2020-02-25 10:40] MED LIST changes: +ASPI-1111 PO; -ASPI-1182 PO; +BUPR-93 PO; +CHOL100018 PO; -DSS100 PO; +OLAN10TA3 PO; -OMEP20 PO; -RISP3 PO; +TRAZ-184 PO
[2020-02-25] MEDS ORDERED: SODIUM CHLORIDE 0.9% 2,350 ML IV ONE (11:33)
[2020-02-25] MEDS ORDERED: VANCOMYCIN HCL 1 GM/D5% WATER 200 ML IV ONE (11:45)
[2020-02-25] MEDS ORDERED: MORPHINE SULFATE 4 MG/ML SYRINGE IVP ONE (11:45)
[2020-02-25] MEDS ORDERED: ONDANSETRON HCL 4 MG/2 ML VIAL IVP ONE (11:45)
[2020-02-25 12:19] LABS: BASOPHILS % (AUTO) 0.2 % (0.0-2.0); EOSINOPHILS % (AUTO) 0.1 % (1.0-6.0); HEMATOCRIT 32.3 % (41-53); HEMOGLOBIN 10.8 g/dL (13.5-17.5); LYMPHOCYTES # (AUTO) 0.5 K/uL (1.0-4.8); LYMPHOCYTES % (AUTO) 2.3 % (22.0-44.0); MEAN CORPUSCULAR HGB CONC 33.5 G/dL (31.0-37.0); MEAN CORPUSCULAR VOLUME 87 fL (80-100); MONOCYTES # (AUTO) 1.6 K/uL (0.1-1.0); MONOCYTES % (AUTO) 7.3 % (2.0-9.0); NEUTROPHILS # (AUTO) 19.7 K/uL (1.8-7.7); PLATELET COUNT (AUTO) 222 K/uL (150-450); RED BLOOD CELL COUNT(AUTO) 3.72 MIL/uL (4.50-5.90); RED CELL DISTRIBUTION WIDTH 13.6 % (11.5-14.5)
[2020-02-25 12:22] LABS: NEUTROPHILS % (AUTO) 90.1 % (40.0-70.0)
[2020-02-25 12:37] LABS: INR 1.2 (0.9-1.1); PROTHROMBIN TIME 12.5 SEC (9.4-11.6)
[2020-02-25 12:40] LABS: CALCIUM, TOTAL 8.8 mg/dL (8.8-10.5); CREATININE 1.7 mg/dL (0.60-1.30); POTASSIUM 3.7 mmol/L (3.5-5.1)
[2020-02-25 12:46] LABS: BILIRUBIN,TOTAL 0.9 mg/dL (0.1-1.0); C-REACTIVE PROTEIN QUANT 23.16 mg/dL (0.00-0.30); TOTAL PROTEIN, SERUM 6.7 g/dL (6.4-8.2)
[2020-02-25 12:51] LABS: LACTIC ACID 1.7 mmol/L (0.4-2.0)
[2020-02-25 12:58] LABS: ERYTHROCYTE SEDIMENTATION RATE 92 MM/HR (0-15)
[2020-02-25] MEDS ORDERED: CefTRIAXone 1 GM/DEXTROSE 50 ML IV ONE (13:15)
[2020-02-25] MEDS ORDERED: AZITHROMYCIN 500 MG/NS 250 ML IV ONE (13:15)
[2020-02-25 15:39] VITALS: BP 135/65
== END 2020-02-25 15:45 | disposition short-term general hospital (02) ==
LOC: EMS 10:41
DX: L03.114 Cellulitis of left upper limb (principal); J18.9 Pneumonia, unspecified organism; I48.91 Unspecified atrial fibrillation; F31.9 Bipolar disorder, unspecified; I10 Essential (primary) hypertension; F20.9 Schizophrenia, unspecified; F17.210 Nicotine dependence, cigarettes, uncomplicated; Z59.0 Homelessness; Z79.82 Long term (current) use of aspirin; Z79.899 Other long term (current) drug therapy
CPT/HCPCS: 36415; 71045; 80053; 82550; 83605; 83880; 84145; 85025; 85610; 85651; 86140; 87040; 93005; 96365; 96366; 96368; 96375; 99285; J0456; J0696; J2270; J2405; J3370; J7030